=== PATIENT | female | born 1955 | race African-American/Black ===

== ENCOUNTER 2017-04-16 01:42 | Inpatient (IN) ==
[2017-04-16] MEDS ORDERED: NORCO-7.5 PO ONE (03:02)
[2017-04-16] MEDS ORDERED: ZOFRAN ODT PO ONE (03:16)
[2017-04-16 03:24] LABS: MANUAL DIFF NEEDED? NO
[2017-04-16 03:36] LABS: BASO% 0.1 % (0.0-0.8); EOS# 0.06 X1000 (0.0-0.7); EOS% 0.8 % (0.0-10.0); HEMATOCRIT 24.3 % (37.0-47.0); HEMOGLOBIN 7.8 g/dL (12.0-16.0); IMM GRAN# 0.02 X1000 (0.0-0.04); IMM GRAN% 0.3 % (0.0-0.5); LYMPH# 2.26 X1000 (1.2-3.4); LYMPH% 28.9 % (20.5-51.1); MCH 28.3 PG (27-31); MCHC 32.1 g/dL (33-37); MONO# 0.62 X1000 (0.11-0.59); MONO% 7.9 % (1.7-9.3); MPV 9.3 FL (7.4-10.4); PLT 191 X1000 (130-400); RBC 2.76 XMIL (4.2-5.4)
[2017-04-16 03:54] LABS: AGAP 16; ALBUMIN 3.8 g/dL (3.5-5.0); ALKALINE PHOSPHATASE 72 U/L (32-104); BUN 11 mg/dL (8-22); CALCIUM 9.2 mg/dL (8.8-10.2); CHLORIDE 102 mmol/L (98-107); COSMO 278; GOT 10 U/L (10-30); GPT 5 U/L (10-36); POTASSIUM 3.4 mmol/L (3.5-5.1); SODIUM 139 mmol/L (136-145); TCO2 20 mmol/L (25-35); TOTAL PROTEIN 7.3 g/dL (6.3-8.3)
--- NOTE | 2017-04-16 06:00 | Diag Imaging Result Doc PS360 ---
EXAM: CHEST-PORTABLE HISTORY: comparison TECHNIQUE: AP COMPARISON: 08/23/2016 FINDINGS: The lungs are well expanded. The heart is not enlarged. The vessels are not distended. There are small scattered granuloma. No pneumonia. No pleural effusions identified. Apparent mild pleural thickening laterally mid right lung. IMPRESSION: Development of a small area of pleural thickening in the right lung, otherwise stable exam. Electronically signed by Stan Tristan 04/16/2017 5:58 AM
--- NOTE | 2017-04-16 06:57 | Diag Imaging Result Doc PS360 ---
EXAM: ANGIOGRAM/PULMONARY ARTERIES HISTORY: chest pain TECHNIQUE: COMPARISON: 11/05/2016 FINDINGS: Trace pleural fluid on the left. There is a small right pleural effusion measuring 1.4 cm posteriorly and inferiorly in the midline. No thoracic aortic aneurysm or dissection. Heart is mildly prominent. There is a tiny pericardial effusion. Normal opacification of the pulmonary arteries and their major branches. There are several calcified subcarinal and right hilar lymph nodes and there are scattered calcified granuloma. Small area of pleural thickening laterally in the mid right lung. Basilar atelectasis. No consolidation. IMPRESSION: 1.No pulmonary emboli 2.There is evidence of a prior granulomatous infection, but no acute pneumonia 3.Small effusions 4.Mild cardiomegaly with a tiny area cardial effusion Electronically signed by Stan Tristan 04/16/2017 6:55 AM
[2017-04-16] MEDS ORDERED: NS 1,000 ML IV ONE (08:23)
[2017-04-16] MEDS ORDERED: ZOFRAN IV PRN (11:06)
[2017-04-16] MEDS: TYLENOL PO PRN (13:44)
--- NOTE | 2017-04-16 15:53 | HISTORY AND PHYSICAL ---
CHIEF COMPLAINT: Abdominal pain, nausea, vomiting. HISTORY OF PRESENT ILLNESS: This is a 61-year-old, female with a history of ovarian cancer, advanced, who is status post 6 cycles of chemotherapy and robotic total hysterectomy on 03/06/2017. She presents to the emergency room complaining of nausea and vomiting and diarrhea x3 days. She states that actually she has had nausea, vomiting and felt bad since starting chemotherapy. She denies any black or bloody vomitus, black or bloody stools. She is able to eat solid foods, stating that the nausea and vomiting is intermittent. Food does not aggravate this every time. She was not orthostatic per vital signs in the emergency room. She is found to have a hemoglobin of 7.8, hematocrit 24.3 and a D-dimer of 5.10. CTA pulmonary was negative. She was given gentle IV hydration in the emergency room and she is being admitted for further evaluation and treatment. PAST MEDICAL HISTORY: Advanced cervical cancer, status post chemotherapy and hysterectomy. Asthma, diabetes mellitus, hyperlipidemia, hypertension, hyperthyroid. PAST SURGICAL HISTORY: , then robotic total hysterectomy on 2016. SOCIAL HISTORY: She denies alcohol, tobacco, or illicit drug use. ALLERGIES: Codeine which causes a rash and penicillin which causes a rash. HOME MEDICATIONS: Gabapentin 300 mg at bedtime, methimazole 5 mg p.o. t.i.d., Toprol-XL 100 daily, Prinivil 20 daily, metformin a 1000 b.i.d., enteric-coated aspirin 81 mg daily, ferrous sulfate 1 tab daily. REVIEW OF SYSTEMS: A 14 point review of systems is discussed with patient with pertinent positives stated in HPI. She denied any black or bloody vomitus, black or bloody stools, chest pain, palpitations, dizziness, syncope, shortness of breath, cough, fever, chills, hematuria, dysuria, frequency, urgency. PHYSICAL EXAMINATION: GENERAL: This is a 61-year-old female, who is sitting in the bed, in no distress. VITAL SIGNS: Blood pressure is 156/68 with a heart rate of 64, respirations are 18, temperature is 97.9 degrees oral with room air saturation of 100%. CARDIOVASCULAR: Regular rate and rhythm. S1, S2 appreciated. PULMONARY: Breath sounds are clear with no increased work of breathing noted. GASTROINTESTINAL: Abdomen is soft, nontender, nondistended with bowel sounds in all 4 quadrants. BACK: No CVAT. No spine tenderness. MUSCULOSKELETAL: Good range of motion of joints. NEUROLOGIC: She is alert and oriented x3. Cranial nerves 2-12 grossly intact. DIAGNOSTICS/LABORATORY: WBC is 7.82 with hemoglobin 7.8, hematocrit 24.3, and platelets of 191,000. D-dimer is 5.1, sodium is 139, potassium 3.4, BUN 11, creatinine 0.9. CTA pulmonary reveals low probability for pulmonary embolus. No pneumonia. Small effusions. ASSESSMENT AND PLAN: 1. Nausea and vomiting and diarrhea. The patient states this has been present since chemotherapy. Began quite some time ago. We will give IV hydration. IV antibiotics. Diet as tolerated. 2. Diabetes mellitus. We will do pattern blood glucose with sliding scale insulin and trend labs. 3. Hypertension. We will trend vital signs. We will start her home medications. 4. Cervical cancer. Status post chemotherapy and robotic total hysterectomy in February 2017. I did speak with Mervat Prater the [facility] with Dr. Landers who is her PROGRAMMER OR ANALYST oncologist. She stated that the patient was unable to follow up for her postop appointment. Her last office visit was 02/21/2017, which was her preop appointment. She did state that the patient called in the last 2-3 weeks stating that she was having abdominal pain and was concerned something was wrong, although she has and she was strongly urged to keep her appointments. We will obtain a CT of the abdomen and pelvis with IV and oral contrast. Give IV pain medication. 5. Hyperthyroid. We will check a thyroid stimulating hormones and continue her home medications as ordered. 6. Anemia. This could be secondary to chemotherapy. She also recently had surgery. We will type and screen and give 1 unit of packed cells and trend her hemoglobin and hematocrit. Further treatments pending hospital course. Dictated by MARIA T Shields for Mark Knapp MD cc: MARIA T Shields MD pt examined, agree with above , will follow [facility]
--- NOTE | 2017-04-16 17:05 | Diag Imaging Result Doc PS360 ---
EXAM: ABDOMEN/PELVIS W/CONTRAST HISTORY: cervical cancer, abd pain, nausea, vomiting TECHNIQUE: Dose reduction protocol COMPARISON: 11/05/2016 FINDINGS: There is a small right-sided pleural effusion measuring 1.7 cm posteriorly and inferiorly in the midline with trace left pleural fluid. There are scattered calcified granuloma in the lung bases. Mild fatty infiltration of the liver. The gallbladder is mildly contracted. Normal spleen, pancreas, and adrenal glands. Normal enhancement of the kidneys. A 5.9 cm cyst arises in the lower pole of the right kidney. No hydronephrosis. Normal aorta. No bowel obstruction. Normal appendix. No abscess. The urinary bladder is only mildly distended. The uterus is been removed. No pelvic mass. Tiny fat filled left inguinal hernia. Tiny fat filled umbilical hernia. IMPRESSION: 1.Development of a small right pleural effusion 2.Mild fatty infiltration of the liver 3.Right renal cyst 4.Hysterectomy 5.Tiny umbilical hernia and tiny left inguinal hernia 6.There is a 14 mm left iliac lymph node which has increased in size since the prior exam when it measured 9 mm. Electronically signed by Stan Tristan 04/16/2017 5:03 PM
[2017-04-16] MEDS: MORPHINE IV PRN ×2 (17:14→21:07)
[2017-04-16] MEDS: TAPAZOLE PO SCH (17:15)
[2017-04-16] MEDS: NS 1,000 ML IV SCH ×3 (17:20→21:09)
[2017-04-16] MEDS: HUMALOG DOSE (PARKWAY) SUBQ SCH ×2 (17:52→21:08)
--- NOTE | 2017-04-16 18:46 | Diag Imaging Result Doc PS360 ---
EXAM: SHOULDER-RIGHT HISTORY: shoulder pain TECHNIQUE: Three views COMPARISON: None. FINDINGS: No fracture. No dislocation. No separation at the acromioclavicular joint. IMPRESSION: Negative exam. Electronically signed by Stan Tristan 04/16/2017 6:44 PM
[2017-04-16] MEDS: PHENERGAN IV PRN (21:07)
[2017-04-16] MEDS: SODIUM CHLORIDE 0.9% INJ PRN (21:08)
[2017-04-16] MEDS: NEURONTIN PO SCH (21:08)
[2017-04-17] MEDS: MORPHINE IV PRN ×3 (01:22→21:20)
[2017-04-17] MEDS: SODIUM CHLORIDE 0.9% INJ PRN (01:23)
[2017-04-17] MEDS: TYLENOL PO PRN ×2 (01:23→08:45)
[2017-04-17] MEDS: PHENERGAN IV PRN ×2 (01:23→21:21)
[2017-04-17] MEDS: NS 1,000 ML IV SCH ×3 (03:01→16:22)
[2017-04-17] MEDS: HUMALOG DOSE (PARKWAY) SUBQ SCH ×4 (06:28→21:16)
[2017-04-17 06:59] LABS: HEMATOCRIT 31.2 % (37.0-47.0); HEMOGLOBIN 10.1 g/dL (12.0-16.0); MCH 28.5 PG (27-31); MCHC 32.4 g/dL (33-37); MCV 87.9 FL (81-99); RBC 3.55 XMIL (4.2-5.4)
[2017-04-17 07:23] LABS: CALCIUM 8.8 mg/dL (8.8-10.2); POTASSIUM 3.9 mmol/L (3.5-5.1)
[2017-04-17] MEDS: FERROUS SULFATE PO SCH (08:41)
[2017-04-17] MEDS: TAPAZOLE PO SCH ×3 (08:41→17:10)
[2017-04-17] MEDS: TOPROL XL PO SCH (08:42)
[2017-04-17] MEDS: ASPIRIN EC PO SCH (08:42)
[2017-04-17] MEDS ORDERED: MAGNESIUM SULFATE 4 GM/S.W.I. 4 GM/100 ML IVPB IV ONE (15:49)
--- NOTE | 2017-04-17 16:16 | PROGRESS NOTE ---
DATE: 04/17/2017 SUBJECTIVE: Patient states that she may feel a little bit better maybe 10-15% better. She states she is freezing. She has had chills and she feels bad all over. OBJECTIVE: Vital Signs: Blood pressure is 135/73 with a heart rate of 115, respirations are 19, temperature is 99.9 degrees oral with oxygen saturations of 92-98% on room air. Cardiovascular: Regular rate and rhythm. S1 and S2 appreciated. Pulmonary: Breath sounds are clear with no increased work of breathing noted. Gastrointestinal: Abdomen is soft, nontender, nondistended with bowel sounds in all 4 quadrants. Extremities: No clubbing, cyanosis, or edema. Calves are nontender. Pulses are palpable x4. LABS: WBC is 13.5 with hemoglobin 10.1, hematocrit 31.2 and platelets of 196, 000. Sodium is 138, potassium 3.9, BUN is 8, creatinine 1.1 with a glucose of ranging 112 to 180s. Her magnesium is 1.4. PROBLEM LIST: 1. Nausea, vomiting and diarrhea. 2. Diabetes mellitus. 3. Hypertension. 4. Leukocytosis. 5. Fever. 6. Hyperthyroid. 7. Anemia. We will continue with her current regimen. We will go ahead and get urine cultures, blood cultures and cover antibiotics. We will continue with IV hydration. Continue trending her vital signs. Dictated by MARIA T Shields for Mark Knapp MD cc: MARIA T Shields MD pt examined, agree with above [facility] MTDD
[2017-04-17] MEDS: ROCEPHIN 1 GM/NS 1 GM/50 ML IVPB IV SCH (16:17)
[2017-04-17] MEDS ORDERED: LACTULOSE PO ONE (18:29)
[2017-04-17 19:27] LABS: URINE CULTURE PL NEEDED? NO; URINE SOURCE CLEAN CATCH
[2017-04-17 19:28] LABS: BILIRUBIN URINE NEGATIVE (NEGATIVE); CLARITY CLEAR (CLEAR); COLOR YELLOW; NITRITE URINE NEGATIVE (NEGATIVE); PH URINE 6.5; PROTEIN URINE NEGATIVE (NEGATIVE); SP GRAVITY URINE 1.005; URINE EPITHELIAL CELLS <10 /HPF (<10); URINE WBC <10 /HPF (<10); UROBILINOGEN URINE NORMAL
[2017-04-17 19:29] LABS: LEUKOCYTES URINE TRACE (NEGATIVE)
[2017-04-17] MEDS: NEURONTIN PO SCH (21:16)
[2017-04-17] MEDS: MIRALAX PO SCH (21:16)
[2017-04-18] MEDS: MORPHINE IV PRN ×2 (05:32→20:32)
[2017-04-18] MEDS: NS 1,000 ML IV SCH ×2 (05:32→13:10)
[2017-04-18] MEDS: HUMALOG DOSE (PARKWAY) SUBQ SCH ×4 (06:31→20:33)
[2017-04-18] MEDS: FERROUS SULFATE PO SCH (09:56)
[2017-04-18] MEDS: TYLENOL PO PRN ×2 (09:56→20:33)
[2017-04-18] MEDS: ASPIRIN EC PO SCH (09:56)
[2017-04-18] MEDS: TOPROL XL PO SCH (09:56)
[2017-04-18] MEDS: MIRALAX PO SCH ×2 (09:56→20:33)
[2017-04-18] MEDS: TAPAZOLE PO SCH ×3 (09:57→16:41)
--- NOTE | 2017-04-18 10:04 | Diag Imaging Result Doc PS360 ---
EXAM: CHEST-2 VIEWS INDICATION: fever, leukocytosis TECHNIQUE: 2 views COMPARISON: 04/16/2017 FINDINGS: Inspiration is slightly suboptimal. The small focus of pleural thickening at the periphery of the right lung seen on the previous study appears more prominent. This may be due to positioning. There now appears to be a small amount of fissural fluid on the right with adjacent mild atelectasis at the right mid and lower lung zone. Opacity at the medial right lung base has increased, likely due to vascular crowding. Developing infiltrate is not excluded, however. The left lung is grossly clear. Cardiac silhouette is unremarkable. IMPRESSION: 1.Focal pleural thickening on the right appears slightly more prominent, probably due to positioning. 2.Small amount of fissural fluid on the right with adjacent atelectasis. 3.Increased opacity at the medial right lung base suggesting atelectasis or perhaps mild infiltrate. Electronically signed by Gil Preciado 04/18/2017 10:01 AM
--- NOTE | 2017-04-18 11:34 | PROGRESS NOTE ---
DATE: 04/18/2017 SUBJECTIVE: The patient states that she is aching all over. She is having chills. She does feel worse today than yesterday. OBJECTIVE: Vital Signs: Blood pressure is 150/79, with a heart rate of 100, respirations are 18, temperature is 101.3 degrees oral, with room air saturations of 97-99%. Cardiovascular: Regular rate and rhythm. S1 and S2 are appreciated. Pulmonary: Breath sounds are clear with no increased work of breathing noted. Gastrointestinal: Abdomen is soft, nontender, nondistended with bowel sounds in all 4 quadrants. Extremities: No clubbing, cyanosis, or edema. Calves are nontender. Pulses are palpable x4. Neurologic: She is alert and oriented x3. Cranial nerves 2- 12 grossly intact. Labs: Blood sugars ranging 170s to 210. Chest x-ray revealed focal pleural thickening on the right is more prominent, probably due to positioning. She has a small amount of fissure fluid on the right with atelectasis, increased opacity in the medial right lung, suggesting atelectasis or infiltrate. ASSESSMENT AND PLAN: 1. Nausea, vomiting, and diarrhea. This is resolved. 2. Right middle lobe atelectasis versus pneumonia. Blood cultures x2 are pending. We will continue her Rocephin. We will add incentive spirometer as well as Acapella. Encourage patient to get out of bed with meals at least 3 times a day. 3. Diabetes mellitus. We will continue to monitor blood sugars and continue with her current medical regimen. 4. Leukocytosis. We will continue to trend labs. 5. Fever. Continue with her current treatment. 6. Hyperthyroid. We will continue with her Tapazole. 7. Anemia. We will trend her labs. Dictated by MARIA T Shields for Mark Knapp MD cc: MARIA T Shields MD pt examined, agree with above [facility]OT MTDD
[2017-04-18 11:37] LABS: MANUAL DIFF NEEDED? NO
[2017-04-18 11:53] LABS: BASO% 0.1 % (0.0-0.8); EOS# 0.05 X1000 (0.0-0.7); EOS% 0.4 % (0.0-10.0); HEMATOCRIT 28.6 % (37.0-47.0); HEMOGLOBIN 9.4 g/dL (12.0-16.0); IMM GRAN# 0.03 X1000 (0.0-0.04); IMM GRAN% 0.2 % (0.0-0.5); LYMPH# 2.03 X1000 (1.2-3.4); LYMPH% 16.3 % (20.5-51.1); MCH 28.7 PG (27-31); MCHC 32.9 g/dL (33-37); MCV 87.2 FL (81-99); MONO# 0.87 X1000 (0.11-0.59); MPV 8.7 FL (7.4-10.4); PLT 165 X1000 (130-400); RBC 3.28 XMIL (4.2-5.4)
[2017-04-18] MEDS: ZITHROMAX 500 MG/NS 500 MG/250 ML IVPB IV SCH (12:32)
[2017-04-18] MEDS: XOPENEX NEB INH SCH ×2 (15:17→22:32)
[2017-04-18] MEDS: ROCEPHIN 1 GM/NS 1 GM/50 ML IVPB IV SCH (16:41)
[2017-04-18] MEDS: NEURONTIN PO SCH (20:33)
[2017-04-19] MEDS: PHENERGAN IV PRN (01:19)
[2017-04-19] MEDS: MORPHINE IV PRN ×4 (01:19→20:24)
[2017-04-19 06:13] LABS: MANUAL DIFF NEEDED? NO
[2017-04-19 06:24] LABS: BASO% 0.1 % (0.0-0.8); EOS# 0.11 X1000 (0.0-0.7); EOS% 1.1 % (0.0-10.0); HEMOGLOBIN 8.7 g/dL (12.0-16.0); IMM GRAN# 0.01 X1000 (0.0-0.04); IMM GRAN% 0.1 % (0.0-0.5); LYMPH# 2.04 X1000 (1.2-3.4); LYMPH% 20.1 % (20.5-51.1); MCH 28.4 PG (27-31); MCHC 32.2 g/dL (33-37); MCV 88.2 FL (81-99); MONO% 7.9 % (1.7-9.3); MPV 9.5 FL (7.4-10.4); NEUT% 70.7 % (42.2-75.2); PLT 151 X1000 (130-400); RBC 3.06 XMIL (4.2-5.4)
[2017-04-19] MEDS: HUMALOG DOSE (PARKWAY) SUBQ SCH ×4 (06:35→21:04)
[2017-04-19 06:37] LABS: AGAP 12; BUN 7 mg/dL (8-22); CALCIUM 8.1 mg/dL (8.8-10.2); CHLORIDE 106 mmol/L (98-107); COSMO 278; POTASSIUM 3.8 mmol/L (3.5-5.1); SODIUM 139 mmol/L (136-145); TCO2 21 mmol/L (25-35)
[2017-04-19] MEDS: XOPENEX NEB INH SCH ×3 (07:49→22:40)
[2017-04-19] MEDS: TOPROL XL PO SCH (09:58)
[2017-04-19] MEDS: TAPAZOLE PO SCH ×3 (09:59→17:40)
[2017-04-19] MEDS: FERROUS SULFATE PO SCH (09:59)
[2017-04-19] MEDS: MIRALAX PO SCH ×2 (09:59→20:24)
[2017-04-19] MEDS: ASPIRIN EC PO SCH (09:59)
[2017-04-19] MEDS ORDERED: ROBITUSSIN-DM PO PRN (10:10)
--- NOTE | 2017-04-19 10:25 | PROGRESS NOTE ---
DATE: 04/19/2017 SUBJECTIVE: The patient has developed a cough. Otherwise, she states that she has just generalized body aches. Otherwise, she has no significant complaints. OBJECTIVE: Vital Signs: Blood pressure is 165/75, heart rate of 88, respirations are 18, temperature is 98.4 degrees with oxygen saturations of 96% to 100% on 2 liters nasal cannula. Cardiovascular: Regular rate and rhythm. S1 and S2 appreciated. Pulmonary: Breath sounds, she has some rhonchi that do clear to cough with no increased work of breathing noted. Gastrointestinal: The abdomen is soft, nontender, nondistended with bowel sounds in all 4 quadrants. Extremities: No clubbing, cyanosis, or edema. Calves are nontender. Pulses are palpable x4. LABORATORY DATA: WBC is 10.1 with hemoglobin of 8.7, hematocrit 27, and platelets of 151,000. Sodium is 139, potassium 3.8, BUN 7, creatinine 0.9 with a glucose of 142. ASSESSMENT: 1. Nausea and vomiting and diarrhea, which are resolved. 2. Right middle lobe atelectasis versus pneumonia. Blood cultures reveal no growth after 48 hours. 3. Diabetes mellitus. 4. Leukocytosis, resolved. 5. Fever. 6. Hyperthyroid. 7. Anemia. PLAN: We will continue with her current regimen. We will add something for her cough. Dictated by MARIA T Shields for Mark Knapp MD cc: MARIA T Shields MD pt examined, agree with above AP[facility]OT MTDD
[2017-04-19] MEDS: NS 1,000 ML IV SCH (10:53)
[2017-04-19] MEDS: TESSALON PO SCH ×2 (10:54→17:39)
[2017-04-19] MEDS: ZITHROMAX 500 MG/NS 500 MG/250 ML IVPB IV SCH (11:18)
[2017-04-19] MEDS: ROCEPHIN 1 GM/NS 1 GM/50 ML IVPB IV SCH (15:54)
[2017-04-19] MEDS: TYLENOL PO PRN (17:40)
[2017-04-19] MEDS: TUSSIONEX LIQUID PO SCH (20:24)
[2017-04-19] MEDS: NEURONTIN PO SCH (20:24)
[2017-04-20] MEDS: TESSALON PO SCH ×3 (02:14→17:25)
[2017-04-20 05:34] LABS: MANUAL DIFF NEEDED? NO
[2017-04-20 05:57] LABS: BASO% 0.2 % (0.0-0.8); EOS# 0.11 X1000 (0.0-0.7); EOS% 1.3 % (0.0-10.0); HEMATOCRIT 26.9 % (37.0-47.0); HEMOGLOBIN 8.6 g/dL (12.0-16.0); IMM GRAN# 0.02 X1000 (0.0-0.04); IMM GRAN% 0.2 % (0.0-0.5); LYMPH# 2.03 X1000 (1.2-3.4); LYMPH% 23.4 % (20.5-51.1); MCH 28.2 PG (27-31); MCV 88.2 FL (81-99); MONO# 0.65 X1000 (0.11-0.59); MONO% 7.5 % (1.7-9.3); MPV 8.9 FL (7.4-10.4); NEUT% 67.4 % (42.2-75.2); PLT 156 X1000 (130-400); RBC 3.05 XMIL (4.2-5.4)
[2017-04-20 06:16] LABS: AGAP 11; BUN 6 mg/dL (8-22); CALCIUM 8.4 mg/dL (8.8-10.2); CHLORIDE 105 mmol/L (98-107); COSMO 276; POTASSIUM 3.6 mmol/L (3.5-5.1); SODIUM 139 mmol/L (136-145); TCO2 23 mmol/L (25-35)
[2017-04-20] MEDS: HUMALOG DOSE (PARKWAY) SUBQ SCH ×4 (06:37→21:46)
[2017-04-20] MEDS: XOPENEX NEB INH SCH ×4 (07:16→21:58)
[2017-04-20] MEDS: ASPIRIN EC PO SCH (09:18)
[2017-04-20] MEDS: TOPROL XL PO SCH (09:18)
[2017-04-20] MEDS: FERROUS SULFATE PO SCH (09:18)
[2017-04-20] MEDS: TAPAZOLE PO SCH ×3 (09:18→16:40)
[2017-04-20] MEDS: TUSSIONEX LIQUID PO SCH ×2 (09:19→21:46)
[2017-04-20] MEDS: MIRALAX PO SCH ×2 (09:19→21:46)
--- NOTE | 2017-04-20 11:08 | PROGRESS NOTE ---
DATE: 04/20/2017 SUBJECTIVE: The patient complains of a cough. Otherwise she states that she is feeling some better. She denied chest pain, PND, orthopnea, shortness of breath, nausea, vomiting, diarrhea or constipation. OBJECTIVE: Vital Signs: Blood pressure is 157/90 with a heart rate of 94, respirations are 18, temperature is 98.1 degrees with oxygen saturation of 97% on room air. Cardiovascular: Regular rate and rhythm. S1, S2 appreciated. Pulmonary: She does have some crackles in the bases with no increased work of breathing noted. Gastrointestinal: Abdomen is soft, nontender, nondistended with bowel sounds in all 4 quadrants. Extremities: No clubbing, cyanosis, or edema. Calves nontender. Pulses are palpable x4. LABORATORY DATA: WBC is 8.6, with a hemoglobin of 8.6 and a hematocrit 26.9, platelets are 156. Sodium is 139, potassium 3.6, BUN 6, creatinine 0.9, with a glucose of 114. Microbiology: Blood cultures and urine cultures revealed no growth. ASSESSMENT: 1. Nausea and vomiting diarrhea. Resolved. 2. Right middle lobe atelectasis versus pneumonia. We will continue with her current regimen. We will add another cough syrup. Continue with pulmonary toilet. 3. Diabetes mellitus. We will continue with her current regimen. Blood sugars are staying in the 114-200 range. 4. Fever resolved. 5. Leukocytosis resolved. 6. Hyperthyroid. We will continue with her home medications. 7. Anemia. Her hemoglobin and hematocrit are staying stable at 8 and 27. Dictated by MARIA T Shields for Mark Knapp MD cc: MARIA T Shields MD pt examined, agree with above AP[facility]OT MTDD
[2017-04-20] MEDS: ZITHROMAX 500 MG/NS 500 MG/250 ML IVPB IV SCH (11:43)
[2017-04-20] MEDS: ROCEPHIN 1 GM/NS 1 GM/50 ML IVPB IV SCH (16:41)
[2017-04-20] MEDS: MORPHINE IV PRN (21:15)
[2017-04-20] MEDS: NEURONTIN PO SCH (21:46)
[2017-04-21] MEDS: TESSALON PO SCH ×4 (01:10→19:04)
[2017-04-21] MEDS: MORPHINE IV PRN ×4 (01:10→20:32)
[2017-04-21] MEDS: XOPENEX NEB INH SCH ×4 (04:10→21:24)
[2017-04-21 05:45] LABS: MANUAL DIFF NEEDED? NO
[2017-04-21 05:51] LABS: BASO% 0.1 % (0.0-0.8); EOS# 0.11 X1000 (0.0-0.7); EOS% 1.2 % (0.0-10.0); HEMATOCRIT 26.8 % (37.0-47.0); HEMOGLOBIN 8.5 g/dL (12.0-16.0); IMM GRAN# 0.01 X1000 (0.0-0.04); IMM GRAN% 0.1 % (0.0-0.5); LYMPH# 1.94 X1000 (1.2-3.4); LYMPH% 21.9 % (20.5-51.1); MCH 28.1 PG (27-31); MCHC 31.7 g/dL (33-37); MCV 88.4 FL (81-99); MONO# 0.73 X1000 (0.11-0.59); MONO% 8.2 % (1.7-9.3); MPV 9.2 FL (7.4-10.4); NEUT% 68.5 % (42.2-75.2); PLT 161 X1000 (130-400); RBC 3.03 XMIL (4.2-5.4)
[2017-04-21] MEDS: HUMALOG DOSE (PARKWAY) SUBQ SCH ×4 (06:47→20:31)
[2017-04-21] MEDS: MIRALAX PO SCH ×2 (08:18→20:23)
[2017-04-21] MEDS: TAPAZOLE PO SCH ×3 (08:18→17:35)
[2017-04-21] MEDS: FERROUS SULFATE PO SCH (08:18)
[2017-04-21] MEDS: ASPIRIN EC PO SCH (08:19)
[2017-04-21] MEDS: TOPROL XL PO SCH (08:19)
[2017-04-21] MEDS: TUSSIONEX LIQUID PO SCH (08:20)
[2017-04-21] MEDS: PHENERGAN IV PRN ×2 (09:16→20:32)
[2017-04-21] MEDS: DOXYCYCLINE 100 MG in NS 250 ML IV SCH ×2 (11:48→23:29)
--- NOTE | 2017-04-21 11:48 | PROGRESS NOTE ---
DATE: 04/21/2017 SUBJECTIVE: Today, Ms. Bills refers to be doing a lot better but still continues to have residual cough and right-sided chest discomfort. OBJECTIVE: Vital Signs: Blood pressure is 159/70, pulse of 98, respirations are 18, temperature 98.4 degrees. General Examination: Ms. Bills is a 61-year-old, female. She is in bed, in mild painful distress. HEENT: Mucosa is pink and moist. Anicteric and acyanotic. Neck: Supple. Chest: Good air entry bilaterally. Some wheezing on the right posterior lung field. Cardiovascular: Regular rate and rhythm. Abdomen: Soft. Extremities : No pedal edema. LEAD RECOVERER: Patient is alert and oriented x4. Laboratory Data: WBCs 8.86, hemoglobin is 8.5, platelet count of 161,000. Chemistry is reviewed. Glucose is 104. An x-ray done on the 1st shows focal pleural thickening on the right appears slightly more prominent probably due to positioning, small amount of effusion in the right with adjacent atelectasis, increased opacity at the medial right lung base suggesting atelectasis and/or perhaps pneumonia. CURRENT MEDICATIONS: Include: 1. Ceftriaxone. 2. Iron. 3. Guaifenesin. 4. Xopenex. 5. Metoprolol. 6. Phenergan. ASSESSMENT: 1. Persistent cough secondary to right medial lobe pneumonia. The patient has been on ceftriaxone and azithromycin. The patient continues to be very symptomatic. We will discontinue the azithromycin and put her on doxycycline to cover for possible methicillin- resistant Staphylococcus aureus and other hospital-associated bacteria since patient has been in and out of the healthcare system. We will also repeat chest imaging to follow up and make sure there is nothing else that we are missing. 2. Nausea and vomiting, which was the main reason of coming in, is improved. 3. Diabetes mellitus, stable. 4. Hyperthyroidism, improved. Stable on methimazole. 5. Normocytic anemia of chronic disease. Patient is status post 1 unit of packed RBC transfusion, stable. 6. History of uterine cancer, status post hysterectomy. Status post rounds of chemotherapy and subsequently a recent hysterectomy. PLAN: Today, we are going to add doxycycline to the patient's medication. I will give her 2 days of acetylcysteine inhalation to help with this cough. We will do a chest CT scan to follow up and make sure there is nothing that we are missing. cc: Etienne Paul MD MTDD
--- NOTE | 2017-04-21 16:11 | Diag Imaging Result Doc PS360 ---
EXAM: CT THORAX W/CONTRAST INDICATION: pneumonia COMPARISON: 04/16/2017 FINDINGS: There has been interval significant increase in size of the right pleural effusion. It is now moderate to large in size. The nodular pleural thickening at the periphery of the right lung overlying the right upper lobe is approximately stable. Pleural metastatic disease cannot be excluded given that there is a history of carcinoma. There is there is nodularity along the fissures of the right lung, which also supports possible pleural metastatic disease. For reference, one small nodule along the minor fissure on image 79 of series 3 measures up to 4.9 mm in greatest dimension. Similarly, there is also nodularity along the pleural surface and fissures on the left. However, it is milder on the left. There are also a few calcified granulomata on the bilaterally. There has been development of a trace effusion at the left lung base as well. There is significant atelectasis at the right lung base and minimal atelectasis at the left lung base. Superimposed pneumonia on the right is possible. There is stable cardiomegaly. There are calcified mediastinal and hilar lymph nodes indicating prior granulomatous disease. IMPRESSION: 1.Increasing right pleural effusion and development of a small left effusion during the short interval. 2.Atelectasis bilaterally, much more significant on the right. I suppose superimposed pneumonia is possible as well. 3.Very nodular pleural thickening at the periphery of the right lung as well as nodularity along the pleural fissures bilaterally. Neoplasm, specifically pleural metastatic disease cannot be excluded given that there is a history of cancer. 4.Other incidental/nonacute findings detailed above. Electronically signed by Gil Preciado 04/21/2017 4:08 PM
[2017-04-21] MEDS: TYLENOL PO PRN (16:48)
[2017-04-21] MEDS: ROCEPHIN 1 GM/NS 1 GM/50 ML IVPB IV SCH (16:48)
[2017-04-21] MEDS ORDERED: NS 100 ML ONE (16:53)
[2017-04-21] MEDS: NEURONTIN PO SCH (20:23)
[2017-04-21] MEDS: MILK OF MAGNESIA PO SCH (20:23)
[2017-04-21] MEDS: MUCOMYST 20% INH SCH (21:24)
[2017-04-22] MEDS: TESSALON PO SCH (02:11)
[2017-04-22] MEDS: XOPENEX NEB INH SCH ×4 (03:02→22:07)
[2017-04-22] MEDS: TYLENOL PO PRN ×2 (03:08→17:00)
[2017-04-22] MEDS: FERROUS SULFATE PO SCH (09:34)
[2017-04-22] MEDS: TOPROL XL PO SCH (09:34)
[2017-04-22] MEDS: MILK OF MAGNESIA PO SCH ×2 (09:34→22:00)
[2017-04-22] MEDS: TAPAZOLE PO SCH ×3 (09:35→17:49)
[2017-04-22] MEDS: MIRALAX PO SCH ×2 (09:35→22:00)
[2017-04-22] MEDS: ASPIRIN EC PO SCH (09:40)
[2017-04-22] MEDS: HUMALOG DOSE (PARKWAY) SUBQ SCH ×3 (09:41→16:36)
[2017-04-22 09:58] LABS: INR 1.06 (0.86-1.15); PROTIME 14.1 Seconds (12.1-15.5)
[2017-04-22 09:59] LABS: PTT PL 34.3 Seconds (22.6-43.9)
[2017-04-22] MEDS: MUCOMYST 20% INH SCH ×2 (10:33→22:07)
[2017-04-22] MEDS: DOXYCYCLINE 100 MG in NS 250 ML IV SCH ×2 (12:56→16:35)
--- NOTE | 2017-04-22 14:19 | Diag Imaging Result Doc PS360 ---
EXAM: CHEST-2 VIEWS HISTORY: INSPIRATION EXP. AFTER THORACENTESIS TECHNIQUE: Inspiratory expiratory PA upright COMMENT: compared to the previous study of 04/18/2017 the right lung is better expanded. There is less fluid status post thoracentesis. There is no evidence of pneumothorax. There may be a small effusion on the left side at this time which was not present previously. IMPRESSION: No evidence of pneumothorax on the right. Electronically signed by Omer Barros 04/22/2017 2:17 PM
--- NOTE | 2017-04-22 14:27 | Diag Imaging Result Doc PS360 ---
EXAM: THORACENTESIS W/IMAGE GUIDANCE HISTORY: right pleural effusion TECHNIQUE: Ultrasound-guided right posterior thoracentesis COMMENT: The risks and benefits the procedure including the possibility of bleeding infection pneumothorax or reaction to lidocaine were discussed with patient and she agreed. Following sterile preparation the skin posteriorly over the fluid pocket in the pleural space and administration 1% lidocaine to the skin and deeper soft tissues, the thoracentesis catheter was placed and subsequently over 400 mL of slightly turbid yellowish a fluid was aspirated. Patient tolerated the procedure well and there are no immediate complications. IMPRESSION: Successful right thoracentesis. Electronically signed by Omer Barros 04/22/2017 2:24 PM
[2017-04-22] MEDS: MORPHINE IV PRN ×2 (16:32→21:23)
[2017-04-22] MEDS ORDERED: VANCOMYCIN IV PER PHARMACY MISC SCH (17:15)
[2017-04-22] MEDS: MAXIPIME 2 GM/NS 2 GM/100 ML IVPB IV SCH (17:49)
[2017-04-22] MEDS ORDERED: VANCOMYCIN 2,000 MG in NS 500 ML IV SCH (18:30)
--- NOTE | 2017-04-22 20:02 | CONSULTATION ---
DATE OF CONSULTATION: 04/22/2017 CONCLUSION: Patient has bibasilar pneumonia. RECOMMENDATIONS: I have discontinued Rocephin and doxycycline, and I put the patient on vancomycin and cefepime. Also, a thoracentesis was performed today and I have ordered the following tests on the pleural fluid: Cell count, cytology, Gram stain, [employer]OR HOME HEALTH, AFB smear and culture, and fungal stain and culture. DISCUSSION: The patient initially was admitted to the hospital with abdominal pain, nausea and vomiting. Now she tells me that she is having bibasilar pleuritic chest pain more prominent on the right side than the left. She has also had fever. She is coughing but she is not bringing up any sputum. The patient had a thoracentesis performed on the right side today. Over 400 mL of a turbid yellow fluid was obtained. CT scan of the chest shows right greater than left pleural effusion and bibasilar infiltrates/atelectasis. Also right lung nodules compatible with metastatic cancer were seen too. The abdomen and pelvic CT showed increase in the lymph node size and also fatty liver. The patient's CBC shows a white count of 8,860, hemoglobin 8.5, and platelet count 161,000. Creatinine is 0.9. GFR is greater than 60. PAST MEDICAL HISTORY: Patient's past medical history is positive for advanced cervical cancer status post chemotherapy and hysterectomy. She also has asthma, diabetes mellitus, hyperlipidemia, hypertension and hyperthyroidism. PAST SURGICAL HISTORY: Positive for and total hysterectomy. SOCIAL HISTORY: The patient [place] . [place] She denies drinking alcohol, smoking cigarettes or abusing drugs. ALLERGIES: The patient is allergic to codeine manifested by rash and also to penicillin which also causes a rash. She has received in the hospital Rocephin already and has tolerated it well. HOME MEDICATIONS: Gabapentin, methimazole, Toprol, Prinivil, metformin, aspirin and ferrous sulfate. REVIEW OF SYSTEMS: Eyes and ears: She denies difficulty hearing or seeing. Neck: No stiffness. Respiratory: She is having bibasilar pain which is pleuritic in nature. She is coughing but does not bring up any sputum. Cardiac: She is not having any anterior left-sided chest pain and she is not having any palpitations. Gastrointestinal: On admission she was complaining of abdominal pain, nausea and vomiting but this has all cleared. She has not noticed any blood in her stool. Genitourinary: No dysuria. The patient is having flank pain but it is mainly pleuritic in nature. Neurologic: The patient is awake. She has not had any seizures. She does not have any unilateral loss of motor or sensory function. PHYSICAL EXAMINATION: Vital Signs: Temperature is 101.7 degrees, pulse 91, respirations 20, blood pressure 159/59. Patient's weight is listed as 155 pounds. She is 5 feet 4 inches tall. General: The patient is an ill-appearing, middle-aged female who has been having pleuritic chest pain as mentioned above. HEENT: She can hear my spoken words. She can see near objects. There were no white patches in her mouth. Neck: No meningismus. Thorax: No increased AP diameter of the chest. A pacemaker is present on the left side. Lungs: There were bibasilar rales. Cardiovascular: Heart rate is regular. Extremities: The patient has leg edema. Peripheral pulses are palpable. Abdomen: Soft and nontender. Neurologic: Patient is slightly lethargic. She is complaining of chest pain. She did move her extremities to request. Her memory as regarding her medical history was reduced. Integument: No rash noted. Thank you for the consultation. cc: Villa Jaimes MD MTDD
[2017-04-22] MEDS: PHENERGAN IV PRN (21:23)
[2017-04-22] MEDS: NEURONTIN PO SCH (21:59)
[2017-04-22 22:36] LABS: SPECIMEN PLEURAL FLUID
[2017-04-22 22:53] LABS: DIFF NEEDED? YES; WBC BF 2611 /cumm
[2017-04-22 23:13] LABS: MONOS 68 %; POLYS 32 %
[2017-04-22 23:52] LABS: TOTAL PROT BODY FLUID 4.9 g/dL
[2017-04-23] MEDS: XOPENEX NEB INH SCH ×4 (03:21→22:22)
[2017-04-23] MEDS: HUMALOG DOSE (PARKWAY) SUBQ SCH ×5 (03:36→20:40)
[2017-04-23] MEDS: PHENERGAN IV PRN ×2 (06:18→20:40)
[2017-04-23] MEDS: MAXIPIME 2 GM/NS 2 GM/100 ML IVPB IV SCH ×2 (06:18→17:47)
[2017-04-23] MEDS: MORPHINE IV PRN ×4 (06:19→20:39)
[2017-04-23 06:25] LABS: DIFF NEEDED? YES; WBC BF 202 /cumm
[2017-04-23 06:29] LABS: MONOS 0 %; POLYS 11 %
[2017-04-23 07:28] LABS: HEMATOCRIT 25.6 % (37.0-47.0); HEMOGLOBIN 8.4 g/dL (12.0-16.0); MCH 28.7 PG (27-31); MCHC 32.8 g/dL (33-37); MCV 87.4 FL (81-99); MPV 8.8 FL (7.4-10.4); RBC 2.93 XMIL (4.2-5.4)
[2017-04-23 07:49] LABS: AGAP 10; ALKALINE PHOSPHATASE 99 U/L (32-104); BUN 8 mg/dL (8-22); CALCIUM 8.5 mg/dL (8.8-10.2); CHLORIDE 100 mmol/L (98-107); COSMO 272; GOT 13 U/L (10-30); GPT 12 U/L (10-36); POTASSIUM 4.2 mmol/L (3.5-5.1); SODIUM 136 mmol/L (136-145); TCO2 26 mmol/L (25-35); TOTAL PROTEIN 6.8 g/dL (6.3-8.3)
[2017-04-23 08:01] LABS: FREE T4 0.87 ng/dL (0.93-1.70)
--- NOTE | 2017-04-23 08:42 | PROGRESS NOTE ---
DATE: 04/23/2017 SUBJECTIVE: Patient is still having increased work of breathing, increased shortness of breath, dyspnea on exertion. She states that she is hurting too bad in her right shoulder to be able to get out of bed. PHYSICAL: Vital Signs: Temperature 98, pulse 93, respiratory rate 18, BP 161/79, saturation 97% on 2 L. General: Patient is awake, alert. She is currently in mild respiratory distress. Pleasant to talk with. Speech is regular. Memory is intact. Neck: Supple. She is an ill- appearing female who appears older than her stated age. HEENT: Normocephalic, atraumatic. Neck: Supple. CV: Regular rate. Chest: Decreased breath sounds but equal bilaterally. Abdomen: Soft. Extremities: Moves all extremities. LABS: WBC 11, hemoglobin and hematocrit 8 and 25. CMP essentially normal. Blood glucose 158. ASSESSMENT: 1. Persistent cough with right middle lobe pneumonia. She had a thoracentesis ultrasound-guided yesterday. Results are pending. 2. Persistent fever with a T-max of 101 on 04/22. Dr. Jaimes, Infectious Disease was consulted and changed her antibiotics to vancomycin and cefepime. 3. Persistent nausea and vomiting. 4. Right shoulder pain. 5. Diabetes. 6. Hyperthyroidism, stable on methimazole. 7. Uterine cancer with her most recent chemotherapy 2 months ago. PLAN: We will attempt to contact her oncologist, Dr. Landers in [place] to discuss with him her current care and plan. Will ensure that her pleural fluid was sent to cytology. Will continue sliding scale. Further orders as needed. cc: Ronaldo Walton MD
[2017-04-23] MEDS: FERROUS SULFATE PO SCH (10:04)
[2017-04-23] MEDS: TAPAZOLE PO SCH ×3 (10:04→17:47)
[2017-04-23] MEDS: ASPIRIN EC PO SCH (10:04)
[2017-04-23] MEDS: TOPROL XL PO SCH (10:04)
[2017-04-23] MEDS: MIRALAX PO SCH ×2 (10:04→20:40)
[2017-04-23] MEDS: MILK OF MAGNESIA PO SCH ×2 (10:04→20:39)
[2017-04-23] MEDS: MUCOMYST 20% INH SCH (10:25)
[2017-04-23] MEDS: VANCOMYCIN 1,400 MG in NS 250 ML IV SCH (18:50)
[2017-04-23] MEDS: NEURONTIN PO SCH (20:40)
[2017-04-24] MEDS: MORPHINE IV PRN ×4 (00:29→15:53)
[2017-04-24] MEDS: PHENERGAN IV PRN ×3 (00:29→21:03)
[2017-04-24] MEDS: XOPENEX NEB INH SCH ×4 (03:31→22:15)
[2017-04-24] MEDS: MAXIPIME 2 GM/NS 2 GM/100 ML IVPB IV SCH ×2 (05:46→17:48)
[2017-04-24] MEDS: MILK OF MAGNESIA PO SCH ×2 (11:00→21:04)
[2017-04-24] MEDS: MIRALAX PO SCH ×2 (11:00→21:04)
[2017-04-24] MEDS: HUMALOG DOSE (PARKWAY) SUBQ SCH ×4 (11:00→22:51)
[2017-04-24] MEDS: FERROUS SULFATE PO SCH (11:01)
[2017-04-24] MEDS: TAPAZOLE PO SCH ×3 (11:01→17:48)
[2017-04-24] MEDS: ASPIRIN EC PO SCH (11:01)
[2017-04-24] MEDS: TOPROL XL PO SCH (11:18)
[2017-04-24] MEDS: TYLENOL PO PRN (12:21)
[2017-04-24] MEDS: VANCOMYCIN 1,400 MG in NS 250 ML IV SCH (21:04)
[2017-04-24] MEDS: NEURONTIN PO SCH (21:04)
[2017-04-25] MEDS: XOPENEX NEB INH SCH ×4 (04:13→21:38)
[2017-04-25] MEDS: MAXIPIME 2 GM/NS 2 GM/100 ML IVPB IV SCH ×2 (05:14→17:47)
[2017-04-25] MEDS: HUMALOG DOSE (PARKWAY) SUBQ SCH ×4 (06:31→21:16)
--- NOTE | 2017-04-25 08:51 | PROGRESS NOTE ---
DATE: 04/25/2017 SUBJECTIVE: The patient notes that she is not hurting quite as bad this morning as she was yesterday. She continued to improve a little bit. Denies any chest pains or palpitations. PHYSICAL: Temperature 98, pulse 96, respiratory 18, BP 135/75. Saturation 99% on 2 L. General: Patient is awake, alert. She is sitting in the bed. She is much improved. ASSESSMENT: 1. Persistent right middle lobe pneumonia. She has actually been afebrile since changing her antibiotics to vancomycin and cefepime on 04/22/2017. We will continue these for now. Labs are currently pending. 2. Pleural effusion. Still waiting results of her recent thoracentesis, although certainly expect that her uterine cancer may be problematic causing this. 3. Nausea and vomiting, improved. 4. Diabetes. 5. Hypothyroidism, stable. PLAN: We will continue antibiotics today. Continue to follow. Hopefully, home in the next couple of days. cc: Ronaldo Walton MD
--- NOTE | 2017-04-25 08:53 | PROGRESS NOTE ---
DATE: 04/25/2017 SUBJECTIVE: The patient notes that she is hurting tremendously this morning. She is sitting on the side of the bed. She is crying on exam. She is currently in no respiratory distress but she is panting on exam secondary to the pain. OBJECTIVE: Vital Signs: Reviewed. Temperature 98 degrees, pulse 87, BP 160/60, sat 98% on room air. General: Patient is awake, alert. She is currently in moderate distress due to pain but no respiratory distress. Neck: Supple. CV: Regular rate. Chest: Clear, nonlabored. Abdomen: Soft. Extremities: Moves all extremities. Neurologic: No changes. LABS: Reviewed. ASSESSMENT: 1. Persistent right middle lobe pneumonia. She is currently afebrile for the past 18 hours after changing her antibiotics yesterday to vancomycin and cefepime. 2. Nausea and vomiting, improved. 3. Pain with poor control. We will attempt to increase her medications. 4. Diabetes. 5. Hypothyroidism 6. Uterine cancer. PLAN: We will continue to follow. We will adjust her pain medications. Further orders as needed. cc: Ronaldo Walton MD
[2017-04-25] MEDS: MIRALAX PO SCH ×2 (09:25→21:16)
[2017-04-25] MEDS: FERROUS SULFATE PO SCH (09:25)
[2017-04-25] MEDS: TAPAZOLE PO SCH ×3 (09:25→16:44)
[2017-04-25] MEDS: MORPHINE IV PRN ×4 (09:25→21:46)
[2017-04-25] MEDS: MILK OF MAGNESIA PO SCH ×2 (09:25→21:16)
[2017-04-25] MEDS: TOPROL XL PO SCH (09:25)
[2017-04-25] MEDS: ASPIRIN EC PO SCH (09:25)
[2017-04-25 10:05] LABS: HEMATOCRIT 30.2 % (37.0-47.0); HEMOGLOBIN 9.8 g/dL (12.0-16.0); MCH 28.3 PG (27-31); MCHC 32.5 g/dL (33-37); MCV 87.3 FL (81-99); MPV 9.6 FL (7.4-10.4); RBC 3.46 XMIL (4.2-5.4)
[2017-04-25 10:06] LABS: AGAP 12; ALBUMIN 3.3 g/dL (3.5-5.0); ALKALINE PHOSPHATASE 105 U/L (32-104); BUN 8 mg/dL (8-22); CALCIUM 9.3 mg/dL (8.8-10.2); CHLORIDE 97 mmol/L (98-107); COSMO 274; GOT 17 U/L (10-30); GPT 11 U/L (10-36); MAGNESIUM 2.4 mg/dL (1.5-2.7); POTASSIUM 4.2 mmol/L (3.5-5.1); SODIUM 136 mmol/L (136-145); TCO2 27 mmol/L (25-35); TOTAL PROTEIN 7.9 g/dL (6.3-8.3)
[2017-04-25] MEDS: VANCOMYCIN 1,400 MG in NS 250 ML IV SCH (19:42)
[2017-04-25] MEDS: NEURONTIN PO SCH (21:16)
[2017-04-26] MEDS: XOPENEX NEB INH SCH ×2 (03:59→10:24)
[2017-04-26] MEDS: MORPHINE IV PRN ×3 (04:48→13:26)
[2017-04-26] MEDS: HUMALOG DOSE (PARKWAY) SUBQ SCH ×2 (06:13→11:36)
[2017-04-26] MEDS: MAXIPIME 2 GM/NS 2 GM/100 ML IVPB IV SCH (06:13)
[2017-04-26] MEDS: MILK OF MAGNESIA PO SCH (08:47)
[2017-04-26] MEDS: ASPIRIN EC PO SCH (08:48)
[2017-04-26] MEDS: TAPAZOLE PO SCH ×2 (08:48→13:26)
[2017-04-26] MEDS: MIRALAX PO SCH (08:48)
[2017-04-26] MEDS: TOPROL XL PO SCH (08:48)
[2017-04-26] MEDS: FERROUS SULFATE PO SCH (08:48)
[2017-04-26 11:40] VITALS: BP 123/99
--- NOTE | 2017-04-26 18:18 | DISCHARGE SUMMARY ---
ADMISSION DATE: 04/16/2017 DISCHARGE DATE: 04/26/2017 ADMISSION DIAGNOSES: 1. Nausea and vomiting with diarrhea. 2. Diabetes. 3. Hypertension. 4. Cervical cancer status post chemotherapy and robotic total hysterectomy in February 2017. 5. Hypothyroidism. 6. Anemia. DISCHARGE DIAGNOSES: 1. Persistent right middle lobe pneumonia. 2. Nausea, vomiting and diarrhea improved. 3. Pain with poor control. 4. Diabetes. 5. Hypothyroidism. 6. Uterine cancer. SUMMARY OF FINDINGS: This is a 61-year-old, female with a history of ovarian cancer advanced status post 6 cycles of chemotherapy and a robotic total hysterectomy on 03/06/2017 who presents to the emergency room complaining of nausea, vomiting and diarrhea for 3 days, and states that it actually began since starting chemotherapy. She denied any black or bloody vomitus, black or bloody stools. She is able to eat solid food stating that the nausea and vomiting is intermittent. Food does not aggravate it at this time. She was not orthostatic in the emergency room. She was found to have a hemoglobin of 7.8, hematocrit of 24.3, D-dimer of 5.10. CTA of pulmonary arteries was negative. She was admitted, placed on IV antibiotics, pattern blood sugars. A chest CT was performed on 04/21/2017 where she was found to have an increasing right pleural effusion and development of a small left effusion, atelectasis bilaterally and a very nodular pleural thickening at the periphery of the right lung as well as nodularity along the pleural fissures bilaterally. A thoracentesis via ultrasound per radiologist was done on 04/22/2017 and removed 400 mL of slightly turbid yellowish fluid, and she tolerated the procedure well. Those results were sent to Pathology with negative results for any cancer cells. On 04/22/2017 Infectious Disease was consulted for her bibasilar pneumonia. Her Rocephin and doxycycline were discontinued at that time, and she was placed on vancomycin and cefepime. She had a temperature on that day of 101.7, now she has a low-grade temp of 99.2 degrees and below, nothing above that for greater than 48 hours. Her white blood cell count is within normal limits. Her hemoglobin and hematocrit are stable at 9.8 and 30.2. Electrolytes are all stable and it is felt that she can safely be discharged home with home health with [facility]. DISCHARGE MEDICATIONS: 1. She was given a prescription for Omnicef 300 mg 1 p.o. b.i.d. #14 with no refills. 2. Clindamycin 300 mg p.o. t.i.d. #21 with no refills. 3. Aspirin 81 mg p.o. daily. 4. Iron 325 mg p.o. daily. 5. Gabapentin 300 mg p.o. at bedtime. 6. [place] 10, 1 p.o. q.6 hours p.r.n. #30 with no refills. 7. Lisinopril 20 mg p.o. daily. 8. Metformin 1000 mg p.o. daily. 9. Methimazole 5 mg p.o. t.i.d. 10. Toprol-XL 100 mg p.o. daily. FOLLOWUP: She will follow up with her oncologist as scheduled. We gave her the number for the physician referral line. Also to establish with a primary care physician. Again she will have home health with [facility]. DISCHARGE TIME: 35 minutes. Dictated by MARIA T Oliveira for Ronaldo Walton MD cc: MARIA T Oliveira MD
--- NOTE | 2017-05-09 02:21 | PROVIDER DOCUMENTATION ---
This chart was entered by Latonia Barillas Scribe, acting as scribe for Eladio Franco MD. HPI-Abdominal Pain/GI Problem <Hi Espino Kelly - Last Filed: 04/16/17 08:59> - General Source: patient - History of Present Illness-ABD Nature of Presenting Problems: 61 year old F presents to the ED with a cc of nausea, vomiting, and diarrhea x4 days. PT states that she has ovarian cancer but has not had chemo in 1 month. PT states that she starts back with chemo on . Abdominal Pain Onset Location: reports: generalized abdomen Severity in ED: reports: mild Onset/Duration: reports: 4 days ago Timing: reports: still present Activities at Onset: reports: none # of Diarrhea Episodes: 4 (last 4 days) # of Vomiting Episodes: 6 (last 4 days) Bruising or Bleeding Gums?: No Similar Symptoms Previously?: No Recently seen or treated by another doctor?: No <Elaido Franco - Last Filed: 05/09/17 02:21> - General Chief Complaint: Dizziness Stated Complaint: n/v/d Time Seen by Provider: 04/16/17 02:20 Allergies/Adverse Reactions: Patient Allergies Allergy/AdvReac Type Severity Reaction Status Date / Time codeine Allergy RASH Verified 05/02/17 11:03 Penicillins Allergy RASH Verified 05/02/17 11:03 Home Medications: Home Medication List Medication Instructions Recorded Confirmed Last Taken Type Aspirin [Aspirin EC] 81 mg PO DAILY 04/17/16 05/02/17 05/02/17 History Gabapentin 300 mg PO HS 04/17/16 05/02/17 05/01/17 History Metformin HCl 1,000 mg PO BID 04/17/16 05/02/17 05/02/17 History Metoprolol Succinate E.r. [Toprol 100 mg PO DAILY 04/17/16 05/02/17 05/02/17 History Xl] LISINOpril [Prinivil] 20 mg PO DAILY 08/25/16 05/02/17 05/02/17 History Ferrous Sulfate 1 tab PO DAILY 04/16/17 05/02/17 05/02/17 History Methimazole 5 mg PO TID 04/16/17 05/02/17 05/02/17 History CefDINIR [Omnicef] 300 mg PO BID #14 capsule 04/26/17 05/02/17 05/02/17 Rx Clindamycin [Cleocin] 300 mg PO TID #21 capsule 04/26/17 05/02/17 05/02/17 Rx Hydrocodone/APAP 10 mg/325 mg 1 each PO Q6H PRN PRN #30 tablet 04/26/1705/02/17 Rx [Piffard-10] Review of Systems - Adult - REVIEW OF SYSTEMS - ADULT Constitutional: reports: no symptoms reported, fatique, weight loss <Hi Espino I - Last Filed: 04/16/17 08:59> - REVIEW OF SYSTEMS - ADULT Constitutional: denies: chills, fever Eyes: reports: no symptoms reported Ears, Nose, Mouth & Throat: reports: no symptoms reported Cardiovascular: reports: no symptoms reported Respiratory: denies: cough, shortness of breath Gastrointestinal: reports: diarrhea, nausea, vomiting Genitourinary: reports: no symptoms reported Musculoskeletal: reports: no symptoms reported Integumentary: reports: no symptoms reported Neurological: reports: no symptoms reported Psychiatric: reports: no symptoms reported Endocrine: reports: no symptoms reported Hematologic/Lymphatic: reports: no symptoms reported Allergic/Immunologic: reports: no symptoms reported All Other Systems: Reviewed and Negative <Eladio Franco - Last Filed: 05/09/17 02:21> Past History - Adult - PAST MEDICAL HISTORY-ADULT Review of Records: reports: Old Records Reviewed, Nursing Assessment Review, Medications Reviewed, Social history reviewed & non-contributory. <Hi Espino I - Last Filed: 04/16/17 08:59> - PAST MEDICAL HISTORY-ADULT Review of Records: reports: Nursing Assessment Review, Medications Reviewed Major Childhood Illnesses: reports: denies history Cardiovascular: reports: HTN, hyperlipidemia Respiratory: reports: denies history Gastrointestinal: reports: denies history Obstetrical/Gynecological: reports: denies history Genitourinary: reports: denies history Musculoskeletal: reports: denies history Neurological: reports: denies history Endocrine/Immune: reports: Diabetes Other Conditions: reports: denies history - PRIOR SURGERIES/PROCEDURES Surgical/Procedure History: reports: - IMMUNIZATION STATUS Childhood Immunizations: See Nurse Assessment Flu Vaccine: See Nurse Assessment - FAMILY HISTORY Family History: reviewed, not pertinent - SOCIAL HISTORY Smoking: non-smoker Substance Use: none/never Alcohol Use Frequency: never <Eladio Franco - Last Filed: 05/09/17 02:21> Physical Exam-General - PHYSICAL EXAM-ADULT Initial Vital Signs Reviewed: Yes - CONSTITUTIONAL General Appearance: mild distress. negative: appears well <Hi Espino I - Last Filed: 04/16/17 08:59> - PHYSICAL EXAM-ADULT Initial Vital Signs Reviewed: Yes - CONSTITUTIONAL General Appearance: alert, mild distress - RESPIRATORY Respiratory: lungs clear, normal breath sounds, other (anterior chest wall tenderness) - CARDIOVASCULAR Cardiovascular: normal peripheral pulses, regular rate, rhythm, no edema - GASTROINTESTINAL (ABDOMEN) Abdominal Exam: soft, tenderness (RUQ) - SKIN Integumentary: normal color, normal turgor, warm/dry - PSYCHIATRIC Psych/Mental Status: normal mood/affect, normal thought content, normal thought process, oriented x 3 <Eladio Franco - Last Filed: 05/09/17 02:21> Progress - PLAN OF CARE/RESULTS Progress/Plan/Lab Results: Vital Signs - 8 hr 04/16/17 01:43 04/16/17 04:58 04/16/17 05:01 Temperature 99 F Pulse Rate 74 Pulse Rate [Sitting] 76 Pulse Rate [Standing] 92 H Pulse Rate [Supine] 70 Respiratory Rate 18 Blood Pressure 194/090 Blood Pressure [Sitting] 152/96 Blood Pressure [Standing] 133/79 Blood Pressure [Supine] 148/77 O2 Sat by Pulse Oximetry 99 04/16/17 05:04 04/16/17 08:19 Temperature 97.7 F Pulse Rate 62 Pulse Rate [Sitting] 76 Pulse Rate [Standing] Pulse Rate [Supine] Respiratory Rate 14 Blood Pressure 140/67 Blood Pressure [Sitting] Blood Pressure [Standing] Blood Pressure [Supine] O2 Sat by Pulse Oximetry 100 Laboratory Results - last 24 hr 04/16/17 04/16/17 04/16/17 02:00 03:10 03:10 WBC 7.82 RBC 2.76 L Hgb 7.8 L Hct 24.3 L MCV 88.0 MCH 28.3 MCHC 32.1 L RDW Std Deviation 14.0 Plt Count 191 MPV 9.3 Immature Gran % (Auto) 0.3 Neut % (Auto) 62.0 Lymph % (Auto) 28.9 Hale % (Auto) 7.9 Eos % (Auto) 0.8 Baso % (Auto) 0.1 Immature Gran # (Auto) 0.02 Neut # (Auto) 4.85 Lymph # (Auto) 2.26 Hale # (Auto) 0.62 H Eos # (Auto) 0.06 Baso # (Auto) 0.01 D-Dimer Sodium 139 Potassium 3.4 L Chloride 102 Carbon Dioxide 20 L Anion Gap 16 BUN 11 Creatinine 0.9 Estimated GFR/1.73 m2 > 60 BUN/Creatinine Ratio 12 Glucose 126 H POC Glucose 140 H Calculated Osmolality 278 Calcium 9.2 Total Bilirubin 0.20 AST 10 ALT 5 L Alkaline Phosphatase 72 Total Protein 7.3 Albumin 3.8 Globulin 4.0 Albumin/Globulin Ratio 1.0 04/16/17 03:10 WBC RBC Hgb Hct MCV MCH MCHC RDW Std Deviation Plt Count MPV Immature Gran % (Auto) Neut % (Auto) Lymph % (Auto) Hale % (Auto) Eos % (Auto) Baso % (Auto) Immature Gran # (Auto) Neut # (Auto) Lymph # (Auto) Hale # (Auto) Eos # (Auto) Baso # (Auto) D-Dimer 5.10 H Sodium Potassium Chloride Carbon Dioxide Anion Gap BUN Creatinine Estimated GFR/1.73 m2 BUN/Creatinine Ratio Glucose POC Glucose Calculated Osmolality Calcium Total Bilirubin AST ALT Alkaline Phosphatase Total Protein Albumin Globulin Albumin/Globulin Ratio Orders Category Date Time Status ANGIOGRAM/PULMONARY ARTERIES [CT] Stat Exams 04/16/17 06:05 Completed CHEST-PORTABLE [RAD] Stat Exams 04/16/17 05:02 Completed CBC WITH DIFF [HEME] Stat Lab 04/16/17 03:10 Completed CMP [COMPREHENSIVE METABOLIC PANEL] [CHEM] Stat Lab 04/16/17 03:[address] [COAG] Stat Lab 04/16/17 03:10 Completed 0.9% Sodium Chloride Inj [Ns] 1,000 ml Med 04/16/17 08:23 Active IV 125 mls/hr Hydrocodone/APAP 7.5 mg/325 mg [[place]-7.5] Med 04/16/17 03:02 Discontinued 1 each PO NOW ONE Ondansetron Odt [Zofran Odt] Med 04/16/17 03:16 Discontinued 4 mg PO NOW ONE Result Diagrams: 04/16/17 03:10 05/30/17 03:10 - REASSESSMENT Reassessment #1 Reassessment Comment: generalized weakness, anemia, and dehydration. will admit. <Hi Espino I - Last Filed: 04/16/17 08:59> - PLAN OF CARE/RESULTS Progress/Plan/Lab Results: Vital Signs - 8 hr 04/16/17 01:43 Temperature 99 F Pulse Rate 74 Respiratory Rate 18 Blood Pressure 194/090 O2 Sat by Pulse Oximetry 99 Result Diagrams: 04/25/17 09:01 04/25/17 09:01 <Eladio Franco - Last Filed: 05/09/17 02:21> Departure - Departure Time of Disposition Decision: 08:32 Certified Medical Emergency: Emergent - Critical Care Note This patient required my direct & personal management of CC.: Yes <Hi Espino I - Last Filed: 04/16/17 08:59> - Departure Date of Disposition Decision: 04/16/17 Time of Disposition Decision: 08:32 Certified Medical Emergency: Emergent - Critical Care Note This patient required my direct & personal management of CC.: No <Eladio Franco - Last Filed: 05/09/17 02:21> - Departure DIAGNOSIS: Anemia, Generalized weakness, Dehydration Disposition: ADMITTED INPATIENT 09 Condition: Stable Attestation - Physician/ FLORENTIN Attestation The physician spent face to face time with patient:: Yes Advanced Practice Provider documentation review:: The physician spent face to face time with this patient and agrees with all MLP documentation, treatment, and medical decision making by the MLP. See provider notes for further information. <Hi Espino I - Last Filed: 04/16/17 08:59> This chart was documented by the indicated scribe, (Latonia Barillas Scribe) and accurately reflects the services I performed and decisions made by me, Eladio Franco MD, as attested by the provider's signature.
== END 2017-04-26 14:24 | disposition home health service (06) ==
LOC: P.ED 01:42 → SUPCPDRO 09:56 → SUATTDRO 09:56 → P.MEDSURG 09:56
PROVIDERS: ATTEND Family Medicine

== ENCOUNTER 2017-05-02 10:59 | Inpatient (IN) ==
[2017-05-02] MEDS ORDERED: ASPIRIN PO STA (12:02)
[2017-05-02 12:26] LABS: MANUAL DIFF NEEDED? NO
[2017-05-02 12:37] LABS: BASO% 0.2 % (0.0-0.8); EOS# 0.07 X1000 (0.0-0.7); EOS% 0.4 % (0.0-10.0); HEMATOCRIT 23.8 % (37.0-47.0); HEMOGLOBIN 7.9 g/dL (12.0-16.0); IMM GRAN# 0.08 X1000 (0.0-0.04); IMM GRAN% 0.4 % (0.0-0.5); LYMPH# 2.14 X1000 (1.2-3.4); LYMPH% 10.9 % (20.5-51.1); MCH 28.4 PG (27-31); MCHC 33.2 g/dL (33-37); MCV 85.6 FL (81-99); MONO# 1.49 X1000 (0.11-0.59); MONO% 7.6 % (1.7-9.3); MPV 9.3 FL (7.4-10.4); NEUT% 80.5 % (42.2-75.2); PLT 227 X1000 (130-400); RBC 2.78 XMIL (4.2-5.4)
--- NOTE | 2017-05-02 12:41 | EKG Report ---
Test Performed on : 05/02/2017 12:36:48 PM Test Reason : CHEST PAIN Blood Pressure : / mmHG Vent. Rate : 078 BPM Atrial Rate : 078 BPM P-R Int : 152 ms QRS Dur : 082 ms QT Int : 376 ms P-R-T Axes : 024 -10 -07 degrees QTc Int : 428 ms Normal sinus rhythm. Cannot rule out Anterior infarct , age undetermined Abnormal ECG When compared with ECG of 04-APR-2010 00:24, Inverted T waves have replaced nonspecific T wave abnormality in Anterior leads T wave amplitude has increased in Lateral leads Unconfirmed Result
[2017-05-02 12:45] LABS: ALBUMIN 3.2 g/dL (3.5-5.0); CALCIUM 8.6 mg/dL (8.8-10.2); MAGNESIUM 1.7 mg/dL (1.5-2.7); POTASSIUM 4.2 mmol/L (3.5-5.1); TOTAL BILIRUBIN 0.4 mg/dL (0.20-1.00); TOTAL PROTEIN 7.3 g/dL (6.3-8.3)
--- NOTE | 2017-05-02 12:46 | Diag Imaging Result Doc PS360 ---
EXAM: CHEST-PORTABLE HISTORY: CP TECHNIQUE: Erect AP portable at 1220 COMMENT: There continues to be some lateral opacity in the right upper lobe which has diminished since the previous study of 04/22/2017. There is also less thickening or fluid in the minor fissure. There is some atelectasis in the left costophrenic angle. IMPRESSION: Improved right upper lobe pneumonia. Electronically signed by Omer Barros 05/02/2017 12:44 PM
[2017-05-02 13:08] LABS: INR 1.13 (0.86-1.15); PROTIME 14.8 Seconds (12.1-15.5)
[2017-05-02 13:09] LABS: PTT PL 32.7 Seconds (22.6-43.9)
[2017-05-02] MEDS ORDERED: LEVAQUIN 500 MG/D5W 500 MG/100 ML IVPB IV ONE (14:04)
--- NOTE | 2017-05-02 14:09 | PROVIDER DOCUMENTATION ---
This chart was entered by Lindsey Miller Scribe, acting as scribe for Hi Espino MD. HPI-General Adult - General Chief Complaint: General Adult Stated Complaint: fever,cough,weakness Time Seen by Provider: 05/02/17 11:04 Source: patient Allergies/Adverse Reactions: Patient Allergies Allergy/AdvReac Type Severity Reaction Status Date / Time codeine Allergy RASH Verified 05/02/17 11:03 Penicillins Allergy RASH Verified 05/02/17 11:03 Home Medications: Home Medication List Medication Instructions Recorded Confirmed Last Taken Type Aspirin [Aspirin EC] 81 mg PO DAILY 04/17/16 05/02/17 05/02/17 History Gabapentin 300 mg PO HS 04/17/16 05/02/17 05/01/17 History Metformin HCl 1,000 mg PO BID 04/17/16 05/02/17 05/02/17 History Metoprolol Succinate E.r. [Toprol 100 mg PO DAILY 04/17/16 05/02/17 05/02/17 History Xl] LISINOpril [Prinivil] 20 mg PO DAILY 08/25/16 05/02/17 05/02/17 History Ferrous Sulfate 1 tab PO DAILY 04/16/17 05/02/17 05/02/17 History Methimazole 5 mg PO TID 04/16/17 05/02/17 05/02/17 History CefDINIR [Omnicef] 300 mg PO BID #14 capsule 04/26/17 05/02/17 05/02/17 Rx Clindamycin [Cleocin] 300 mg PO TID #21 capsule 04/26/17 05/02/17 05/02/17 Rx Hydrocodone/APAP 10 mg/325 mg 1 each PO Q6H PRN PRN #30 tablet 04/26/1705/02/17 Rx [[place]-10] - History of Present Illness -Gen Adult Nature of Presenting Problems: 61 yo F presents to the ER with complaint of fever, cough, and weakness. Pt had pneumonia last week and was admitted to the hospital. Pt states she has a hx of ovarian cancer and last chemo treatment was x2 months ago. Associated Symptoms: reports: cough, fever/chills, weakness Review of Systems - Adult - REVIEW OF SYSTEMS - ADULT Constitutional: denies: chills, fever Eyes: reports: no symptoms reported Ears, Nose, Mouth & Throat: reports: no symptoms reported Cardiovascular: denies: chest pain, palpitations Respiratory: reports: cough, shortness of breath Gastrointestinal: denies: diarrhea, nausea, vomiting Genitourinary: reports: no symptoms reported Musculoskeletal: reports: no symptoms reported Integumentary: reports: no symptoms reported Neurological: reports: no symptoms reported Psychiatric: reports: no symptoms reported Endocrine: reports: no symptoms reported Hematologic/Lymphatic: reports: no symptoms reported Allergic/Immunologic: reports: no symptoms reported All Other Systems: Reviewed and Negative Past History - Adult - PAST MEDICAL HISTORY-ADULT Review of Records: reports: Nursing Assessment Review, Medications Reviewed Cardiovascular: reports: HTN, hyperlipidemia Endocrine/Immune: reports: Diabetes Other Conditions: reports: denies history - PRIOR SURGERIES/PROCEDURES Surgical/Procedure History: reports: - IMMUNIZATION STATUS Childhood Immunizations: See Nurse Assessment Flu Vaccine: See Nurse Assessment Physical Exam-General - PHYSICAL EXAM-ADULT Initial Vital Signs Reviewed: Yes - CONSTITUTIONAL General Appearance: alert, lethargic - EYES Eyes: PERRL/EOMI, pink conjunctivae - HEAD, EARS, NOSE, MOUTH & THROAT HENMT: normocephalic/atraumatic, normal ENT inspection - NECK Neck: supple, normal inspection - RESPIRATORY Respiratory: no respiratory distress, no accessory muscle use, decreased breath sounds (worse on L side) - CARDIOVASCULAR Cardiovascular: normal peripheral pulses, regular rate, rhythm - GASTROINTESTINAL (ABDOMEN) Abdominal Exam: normal bowel sounds, non tender, soft - MUSCULOSKELETAL Back Exam: no CVA tenderness, no vertebral tenderness Extremity: normal gait, normal inspection - SKIN Integumentary: normal color, warm/dry - NEUROLOGIC Neurologic: grossly normal, no motor/sensory deficits - PSYCHIATRIC Psych/Mental Status: normal mood/affect, normal thought content, normal thought process, oriented x 3 Progress - PLAN OF CARE/RESULTS Progress/Plan/Lab Results: Vital Signs - 8 hr 05/02/17 11:07 Temperature 100.3 F H Pulse Rate 88 Respiratory Rate 17 Blood Pressure 123/58 O2 Sat by Pulse Oximetry 94 L Result Diagrams: 05/02/17 12:21 05/02/17 12:21 - EKG 1 Time of EKG reading by physician:: 12:36 EKG Read and Signed by:: Hi Espino EKG Interpretation (*Must complete 3 of following elements*): Abnormal Rate: 78 Rhythm: normal sinus rhythm [place]: normal QRS: normal AL Interval: normal ST Wave: normal Comments: cannot rule out anterior infarct, age undetermined - XRAY 1 XRAY Study: Chest Impression: See EMR Report (improved R upper lobe pneumonia, per radiologist) Comparison with other Films: changes noted Departure - Departure Date of Disposition Decision: 05/02/17 Time of Disposition Decision: 14:08 DIAGNOSIS: Pneumonia, Generalized weakness, Anemia Disposition: ADMITTED INPATIENT 09 Certified Medical Emergency: Emergent Condition: Stable Referrals and Follow-Ups: Ronaldo Walton MD [Primary Care Provider] - - Critical Care Note This patient required my direct & personal management of CC.: No Attestation - Physician/ FLORENTIN Attestation The physician spent face to face time with patient:: Yes Advanced Practice Provider documentation review:: The physician spent face to face time with this patient and agrees with all MLP documentation, treatment, and medical decision making by the MLP. See provider notes for further information. This chart was documented by the indicated scribe, (Lindsey Miller Scribe) and accurately reflects the services I performed and decisions made by me, Hi Espino MD, as attested by the provider's signature.
--- NOTE | 2017-05-02 16:26 | HISTORY AND PHYSICAL ---
CHIEF COMPLAINT: Fever, cough, weakness. HISTORY OF PRESENT ILLNESS: This is a 61-year-old female with a history of ovarian cancer who is status post 6 cycles of chemotherapy and underwent robotic hysterectomy on 03/06/2017. She presented to the emergency room complaining of fever, increasing cough and weakness. She was hospitalized from April 16 until April 26 for pneumonia and she comes in today having persistent right upper lobe pneumonia but with some improvement from 04/22/2017 x-ray. She has a temperature of 100.3 degrees in the emergency room. At home she stated that she had a fever although it was a subjective fever. She did have a white count of 19, with a hemoglobin of 7.9 and a hematocrit of 23.8. She was given Levaquin in the emergency room and she is being admitted for further evaluation and treatment. PAST MEDICAL HISTORY: 1. Advanced stage ovarian cancer, having completed 4 rounds of chemotherapy 03/02/2017. 2. Asthma. 3. Diabetes mellitus. 4. Hyperlipidemia. 5. Hypertension. 6. Hypothyroid. PAST SURGICAL HISTORY: , robotic total hysterectomy 03/06/2017. SOCIAL HISTORY: Denies alcohol, tobacco, or illicit drug use. ALLERGIES: Codeine which causes a rash and penicillin which causes a rash. HOME MEDICATIONS: Metoprolol-XL 100 mg daily. Methimazole 5 three times a day. Metformin 1000 b.i.d. Prinivil 20 daily. [place] 10 q.6 hours p.r.n. Gabapentin 300 at bedtime. Ferrous sulfate 1 daily. Clindamycin, she is currently on day 7. Omnicef 300 mg b.i.d. should be completed. Enteric-coated aspirin 81 mg. REVIEW OF SYSTEMS: A 14 point review of systems is discussed with patient with pertinent positives stated in the HPI. She denied chest pain, palpitations, dizziness, syncope, PND, orthopnea, nausea, vomiting, diarrhea, constipation. PHYSICAL EXAMINATION: GENERAL: This is a 61-year-old female, who is lying in the bed, in no distress. VITAL SIGNS: Blood pressure is 140/78, with a heart rate of 84, respirations are 20, temperature is 99.8 degrees oral with oxygen saturations of 97%-98% on 2 L nasal cannula. HEENT: Head is normocephalic, atraumatic. Pupils equal, round, react to light. EOMs are intact. Sclerae anicteric. Mucous membranes are moist. NECK: Supple. Trachea midline. CARDIOVASCULAR: Regular rate and rhythm. S1, S2 appreciated. PULMONARY: Breath sounds are decreased throughout with left side greater than right. Chest rises and falls symmetrically with respiration. GASTROINTESTINAL: Abdomen was soft, nontender, nondistended, with bowel sounds in all 4 quadrants. BACK: No CVAT. No spine tenderness. MUSCULOSKELETAL: Good range of motion of joints. NEUROLOGIC: She is alert and oriented x3 with cranial nerves 2-12 grossly intact. SKIN: Warm and dry. EXTREMITIES: No clubbing, cyanosis, or edema. Calves are nontender. Pulses are palpable x4. DIAGNOSTIC DATA: Labs: WBC is 19.6, with hemoglobin 7.9, hematocrit 23.8, platelets of 227,000. Sodium is 131, potassium 4.2, BUN 7, creatinine 1, with a glucose of 164. Chest x-ray reveals right upper lobe pneumonia improved from 04/22/2017 chest x-ray. ASSESSMENT: 1. Right upper lobe pneumonia. Persistent. 2. Leukocytosis secondary to #1. 3. Anemia. 4. Generalized weakness. 5. Diabetes mellitus. 6. Hypertension. 7. Hyperthyroid. PLAN: We will obtain blood cultures. She was given a dose of Levaquin in the emergency room as she is status post chemotherapy and surgery. We will go ahead and give vancomycin and cefepime. We will identify her home medications and continue. We will hold metformin. At present, place her on pattern blood glucose with sliding scale insulin. We will trend labs daily. We will give supplemental oxygen. The patient is under the care of Dr. Landers, [facility] in [place]. He is managing her chemotherapy as well as her surgery and followup. We will be transferring the patient to [facility] for pulmonary availability to follow. Further treatments pending hospital course. Dictated by MARIA T Shields for Ronaldo Walton MD cc: MARIA T Shields MD
[2017-05-02] MEDS ORDERED: VANCOMYCIN IV PER PHARMACY MISC SCH (17:50)
[2017-05-02] MEDS ORDERED: DUONEB (A & A) INH PRN (17:50)
[2017-05-02] MEDS ORDERED: ZOFRAN IV PRN (17:50)
[2017-05-02] MEDS: NS 1,000 ML IV SCH (18:14)
[2017-05-02] MEDS: HUMALOG SUBQ SCH ×2 (18:14→21:21)
[2017-05-02] MEDS: NORCO-10 PO PRN (18:15)
[2017-05-02] MEDS: TAPAZOLE PO SCH (18:15)
[2017-05-02] MEDS: PROTONIX IV SCH (18:15)
[2017-05-02] MEDS: DUONEB (A & A) INH SCH ×2 (19:35→22:35)
[2017-05-02] MEDS ORDERED: VANCOMYCIN 1.7 GM in NS 250 ML IV ONE (21:00)
[2017-05-02] MEDS: NEURONTIN PO SCH (21:21)
[2017-05-03] MEDS: NORCO-10 PO PRN ×4 (00:07→18:56)
[2017-05-03] MEDS: MAXIPIME 2 GM/NS 2 GM/100 ML IVPB IV SCH ×2 (01:07→11:54)
[2017-05-03] MEDS: DUONEB (A & A) INH SCH ×6 (03:40→23:10)
[2017-05-03 05:52] LABS: HEMATOCRIT 23.8 % (37.0-47.0); HEMOGLOBIN 7.8 g/dL (12.0-16.0); MCH 29.2 PG (27-31); MCHC 32.8 g/dL (33-37); MCV 89.1 FL (81-99); MPV 9.5 FL (7.4-10.4); RBC 2.67 XMIL (4.2-5.4)
[2017-05-03 06:14] LABS: AGAP 14; BUN 6 mg/dL (8-22); CALCIUM 8.7 mg/dL (8.8-10.2); CHLORIDE 98 mmol/L (98-107); COSMO 268; POTASSIUM 3.9 mmol/L (3.5-5.1); SODIUM 134 mmol/L (136-145); TCO2 22 mmol/L (25-35)
[2017-05-03] MEDS: HUMALOG SUBQ SCH ×4 (06:15→21:35)
[2017-05-03 06:30] LABS: IRON SATURATION 18 %; TIBC 131 ug/dL; TOTAL IRON 24 ug/dL (49-151); UNBOUND IRON 107 ug/dL (112-346)
[2017-05-03 06:45] LABS: FERRITIN 417 ng/mL (13-150)
[2017-05-03] MEDS: PRINIVIL PO SCH (10:12)
[2017-05-03] MEDS: ASPIRIN EC PO SCH (10:12)
[2017-05-03] MEDS: FERROUS SULFATE PO SCH (10:13)
[2017-05-03] MEDS: TOPROL XL PO SCH (10:13)
[2017-05-03] MEDS: TAPAZOLE PO SCH ×3 (10:16→16:04)
--- NOTE | 2017-05-03 12:00 | PROGRESS NOTE ---
DATE: 05/03/2017 SUBJECTIVE: The patient is not feeling well today. She is still having a nonproductive cough. She denies having any fever or chills. Still having very poor appetite. OBJECTIVE: Vital Signs: Blood pressure 128/59, pulse of 102, respirations 20, temperature 98.5 degrees, saturations of 96% on 2 L nasal cannula. General Appearance: Well-developed, well- nourished black female in no acute distress. HEENT: Anicteric. Clear conjunctivae. Neck supple. No JVD. No bruits. Cardiovascular: S1, S2. Normal rate and rhythm. No murmur, rubs, or gallops. Pulmonary: Crackle bilaterally. GI: Soft, nontender, nondistended. Normoactive bowel sounds. Musculoskeletal: No clubbing, cyanosis, or edema. LABORATORY: Her white count 17.71, hemoglobin 7.8, hematocrit of 23.8, platelets of 221,000. Chemistry: Sodium 134, potassium 3.9, chloride 98, bicarb 22. BUN 6, creatinine 1.1, glucose of 131. Chest x-ray showed right upper lobe pneumonia. ASSESSMENT AND PLAN: A 61-year-old white female admitted to the hospital with fevers, cough, weakness, and chest x-ray shows her to have pneumonia. 1. Pneumonia right upper lobe as on x-ray. The patient is on broad-spectrum antibiotics because of her recent chemotherapy concerning for immunosuppressed. Cultures are still pending. 2. Ovarian cancer. The last was over 2 months ago because she has been weak and has not been able to get anymore chemo. She is followed by the public health advisor and oncologist in [place]. 3. Hypertension. We will continue lisinopril. 4. Iron deficiency anemia secondary to chronic disease. We will continue iron supplement. 5. Deep vein thrombosis prophylaxis. I put the patient on Lovenox. 6. CODE STATUS: The patient is a FULL CODE.
[2017-05-03] MEDS ORDERED: MEDROL DOSEPAK PO SCH (12:45)
--- NOTE | 2017-05-03 16:34 | CONSULTATION ---
DATE OF CONSULTATION: 05/03/2017 REFERRING PHYSICIAN: Dr. John Paulino. CHIEF COMPLAINT: Evaluation for pneumonia. HISTORY OF PRESENTING ILLNESS: This is a 61-year-old female with past history of chemotherapy for ovarian cancer. In the past, had hysterectomy and came into the hospital with cough, fever and weakness and was found to have a pneumonia in the recent past. Chest CT scan showed pleural effusion, pleural thickening, possible nodularity, and at that time she had thoracentesis with ultrasound guidance. PAST MEDICAL HISTORY: Hypothyroidism, hypertension, hyperlipidemia, diabetes, asthma and stage IV ovarian cancer. PAST SURGICAL HISTORY: C section. Hysterectomy on 03/06/2017. SOCIAL HISTORY: Nonsmoker. ALLERGIES: Possibly to codeine. HOME MEDICATIONS: Reviewed. FAMILY HISTORY: Hypertension. REVIEW OF SYSTEMS: As detailed in history of presenting illness, otherwise noncontributory. PHYSICAL EXAMINATION: Vital Signs: Noted. General exam: Irritated with her own cough, awake and lethargic. Vital signs noted. Head and Neck: Trachea midline. Chest: Examination revealed reduced air entry. Cardiac exam: S1, S2. Abdomen: Nontender. Extremities: Lower limb examination with +1 pedal edema. Neurological exam: Awake, responsive. LABS AND INVESTIGATIONS: WBC is 17.7, hemoglobin 7.8, platelets 221, creatinine 1.1, potassium 3.9, CMP reviewed. Pleural fluid cytology was inconclusive. ABG is pending. MEDICATIONS: Medications in the hospital were reviewed and they include nebulized treatment, Lovenox for DVT prophylaxis, lithium, Solu-Medrol, metoprolol, Protonix and vancomycin. ASSESSMENT AND PLAN: A 61-year-old female with past history as above with ovarian cancer, pleural effusion status post thoracentesis recently, popliteal nodule, who now has pneumonia, shortness of breath and a cough. I agree with antibiotics and symptomatic treatment. Will check arterial blood gas. Deep vein thrombosis prophylaxis. If pleural effusion recurs, will consider thoracoscopy. Thank you for the courtesy of this consultation. cc: Rashel Gill MD
[2017-05-03] MEDS: NS 1,000 ML IV SCH ×2 (17:40→21:36)
[2017-05-03] MEDS: TYLENOL PO PRN (17:40)
[2017-05-03] MEDS: PROTONIX IV SCH (17:40)
[2017-05-03] MEDS ORDERED: TESSALON PO ONE (18:09)
[2017-05-03] MEDS: ROBITUSSIN PO PRN (21:31)
[2017-05-03] MEDS: NEURONTIN PO SCH (21:47)
[2017-05-03] MEDS: VANCOMYCIN 1.25 GM in NS 250 ML IV SCH (21:47)
[2017-05-04] MEDS: MAXIPIME 2 GM/NS 2 GM/100 ML IVPB IV SCH ×2 (02:02→13:40)
[2017-05-04] MEDS: ROBITUSSIN PO PRN ×3 (02:03→22:17)
[2017-05-04] MEDS: DUONEB (A & A) INH SCH ×6 (03:15→23:32)
[2017-05-04] MEDS: HUMALOG SUBQ SCH ×4 (06:29→22:28)
[2017-05-04 06:33] LABS: MANUAL DIFF NEEDED? NO
[2017-05-04 06:46] LABS: BASO% 0.2 % (0.0-0.8); EOS# 0.32 X1000 (0.0-0.7); HEMATOCRIT 22.5 % (37.0-47.0); HEMOGLOBIN 7.2 g/dL (12.0-16.0); IMM GRAN# 0.07 X1000 (0.0-0.04); IMM GRAN% 0.4 % (0.0-0.5); LYMPH# 1.99 X1000 (1.2-3.4); LYMPH% 12.7 % (20.5-51.1); MCH 27.7 PG (27-31); MCV 86.5 FL (81-99); MONO# 1.32 X1000 (0.11-0.59); MONO% 8.4 % (1.7-9.3); MPV 9.7 FL (7.4-10.4); NEUT% 76.3 % (42.2-75.2); PLT 224 X1000 (130-400)
[2017-05-04 07:12] LABS: AGAP 14; BUN 6 mg/dL (8-22); CALCIUM 8.8 mg/dL (8.8-10.2); CHLORIDE 101 mmol/L (98-107); COSMO 276; POTASSIUM 4.5 mmol/L (3.5-5.1); SODIUM 138 mmol/L (136-145); TCO2 23 mmol/L (25-35)
[2017-05-04] MEDS: FERROUS SULFATE PO SCH (09:41)
[2017-05-04] MEDS: TOPROL XL PO SCH (09:41)
[2017-05-04] MEDS: TAPAZOLE PO SCH ×3 (09:41→17:19)
[2017-05-04] MEDS: ASPIRIN EC PO SCH (09:41)
[2017-05-04] MEDS: TESSALON PO SCH ×3 (09:41→17:19)
[2017-05-04] MEDS: LOVENOX SUBQ SCH (09:42)
[2017-05-04] MEDS: PRINIVIL PO SCH (09:42)
[2017-05-04] MEDS: NORCO-10 PO PRN ×2 (09:51→17:21)
[2017-05-04] MEDS: TYLENOL PO PRN (12:39)
[2017-05-04] MEDS: MEDROL PO SCH ×3 (13:40→22:14)
--- NOTE | 2017-05-04 13:47 | PROGRESS NOTE ---
DATE: 05/04/2017 SUBJECTIVE: The patient is feeling a little better today. Still having a cough that is nonproductive. OBJECTIVE: Vital signs: Blood pressure 140/61, pulse 103, respirations 20, temperature 98.6 degrees, sat of 97% on 2 L nasal cannula. General appearance: Well-developed, well-nourished black female in no acute distress. HEENT: Anicteric. Clear conjunctivae. Neck: Supple. No JVD. No bruit. Cardiovascular: S1, S2. Normal rate and rhythm. No murmur, rubs, or gallops. Pulmonary: Clear to auscultation bilaterally. GI: Soft, nontender, nondistended. Normoactive bowel sounds. Musculoskeletal: No clubbing, cyanosis, or edema. LABORATORY: White count 15.70, hemoglobin 7.2, hematocrit of 22.5, platelets of 224,000. Sodium 138, potassium 4.5, chloride 100, bicarb 25. BUN 6. Creatinine 1.0. Glucose 114. ASSESSMENT AND PLAN: 61-year-old admitted to the hospital for nonproductive cough and right-sided pneumonia. 1. Right-sided pneumonia. Will continue cefepime and vancomycin. Pulmonology was consulted. Dr. Gill saw the patient and followed along with us. 2. Diabetes type 2. Continue sliding scale insulin. 3. Hypertension. Continue lisinopril and add metoprolol for now. 4. Deep vein thrombosis prophylaxis. The patient on Lovenox. 5. Iron deficiency anemia. Continue ferrous sulfate. 6. We will consult physical therapy to work with the patient. CODE STATUS: The patient is a full code. No surrogate decision maker was on site.
[2017-05-04] MEDS: NS 1,000 ML IV SCH (15:31)
[2017-05-04] MEDS: PROTONIX IV SCH (17:21)
[2017-05-04] MEDS: SODIUM CHLORIDE 0.9% INJ SCH (17:21)
[2017-05-04] MEDS: NEURONTIN PO SCH (22:17)
[2017-05-04] MEDS: VANCOMYCIN 1.25 GM in NS 250 ML IV SCH (22:18)
[2017-05-05] MEDS: NS 1,000 ML IV SCH ×2 (00:24→17:02)
[2017-05-05] MEDS: HUMALOG SUBQ SCH ×5 (00:25→21:02)
[2017-05-05] MEDS: NORCO-10 PO PRN ×2 (01:41→18:23)
[2017-05-05] MEDS: MAXIPIME 2 GM/NS 2 GM/100 ML IVPB IV SCH ×2 (01:43→16:18)
[2017-05-05] MEDS: DUONEB (A & A) INH SCH ×6 (03:13→23:20)
[2017-05-05 06:17] LABS: BASO% 0.1 % (0.0-0.8); HEMATOCRIT 23.8 % (37.0-47.0); HEMOGLOBIN 7.8 g/dL (12.0-16.0); IMM GRAN% 0.5 % (0.0-0.5); LYMPH% 4.7 % (20.5-51.1); MANUAL DIFF NEEDED? YES; MCHC 32.8 g/dL (33-37); MCV 85.3 FL (81-99); MONO# 0.48 X1000 (0.11-0.59); MONO% 2.5 % (1.7-9.3); MPV 9.7 FL (7.4-10.4); NEUT% 92.2 % (42.2-75.2); PLT 265 X1000 (130-400); RBC 2.79 XMIL (4.2-5.4)
[2017-05-05 07:08] LABS: AGAP 13; BUN 7 mg/dL (8-22); CALCIUM 9.5 mg/dL (8.8-10.2); CHLORIDE 104 mmol/L (98-107); COSMO 278; POTASSIUM 4.8 mmol/L (3.5-5.1); SODIUM 139 mmol/L (136-145); TCO2 22 mmol/L (25-35)
[2017-05-05 07:26] LABS: BANDS 10 % (0-1); LYMPHS 6 % (21-51); MONO 4 % (1-9)
[2017-05-05] MEDS: ASPIRIN EC PO SCH (08:50)
[2017-05-05] MEDS: PRINIVIL PO SCH (08:51)
[2017-05-05] MEDS: FERROUS SULFATE PO SCH (08:51)
[2017-05-05] MEDS: MEDROL PO SCH ×4 (08:51→21:02)
[2017-05-05] MEDS: TOPROL XL PO SCH (08:51)
[2017-05-05] MEDS: TESSALON PO SCH ×3 (08:51→16:19)
[2017-05-05] MEDS: TAPAZOLE PO SCH ×3 (08:51→16:19)
[2017-05-05] MEDS: LOVENOX SUBQ SCH (08:52)
--- NOTE | 2017-05-05 10:22 | PROGRESS NOTE ---
DATE: 05/15/2017 SUBJECTIVE: The patient is feeling well. Much better than she was yesterday. Cough is much improved. No fever. No chills. No nausea, vomiting, or diarrhea. OBJECTIVE: Vital Signs: Blood pressure 145/69, pulse of 99, respirations 20, temperature 98.4 degrees, T-max is T current. General appearance: Black female, no acute distress. Sitting up in bed, eating her breakfast. Neck: Supple. No JVD. No bruits. Cardiovascular: S1 and S2. Normal rate and rhythm. No murmur, rubs, or gallops. Pulmonary: Occasional crackles at the bases. GI: Soft, nontender, nondistended. Normoactive bowel sounds. Musculoskeletal: No clubbing, cyanosis, or edema. LABORATORY: WBC 19.31, hemoglobin 7.8, hematocrit of 23.8, platelets of 265,000. Chemistry: Sodium 139, potassium 4.8, chloride 104, bicarb 22, BUN 7, creatinine 0.8, glucose of 150. ASSESSMENT AND PLAN: This is a 61-year-old black female admitted to the hospital for pneumonia. 1. Right-sided pneumonia. The patient is on cefepime and vancomycin due to her recent chemotherapy concerning for immunosuppression. 2. Diabetes type 2. Continue sliding scale insulin. 3. Hypertension. Continue lisinopril and metoprolol. 4. Deep vein thrombosis prophylaxis. Patient is on Lovenox. 5. Iron deficiency anemia. Continue iron supplement. 6. Continue physical therapy. Will recheck her lab work tomorrow. We will keep the patient on a few more days of IV antibiotics. We will continue to follow culture. Hopefully we can get the patient home soon.
[2017-05-05] MEDS: ROBITUSSIN PO PRN ×2 (10:33→18:24)
[2017-05-05 12:53] LABS: INR 1.04
--- NOTE | 2017-05-05 13:22 | Diag Imaging Result Doc PS360 ---
EXAM: CHEST-2 VIEWS INDICATION: pneumonia TECHNIQUE: 2 views COMPARISON: 05/02/2017 FINDINGS: The focal opacity at the periphery of the right upper lobe is essentially stable. There are probably trace effusions that are stable. There are no new consolidations. Cardiac silhouette is stable. IMPRESSION: Essentially stable chest. Electronically signed by Gil Preciado 05/05/2017 1:20 PM
[2017-05-05] MEDS ORDERED: NS 250 ML ONE (14:00)
[2017-05-05] MEDS: PROTONIX IV SCH ×2 (16:19→19:31)
[2017-05-05] MEDS: SODIUM CHLORIDE 0.9% INJ SCH (16:19)
[2017-05-05] MEDS: NEURONTIN PO SCH (21:02)
[2017-05-05] MEDS: VANCOMYCIN 1.5 GM in NS 250 ML IV SCH (21:03)
[2017-05-06] MEDS: NS 1,000 ML IV SCH ×2 (02:11→17:51)
[2017-05-06] MEDS: MUCINEX PO SCH ×3 (02:11→20:55)
[2017-05-06] MEDS: MAXIPIME 2 GM/NS 2 GM/100 ML IVPB IV SCH ×2 (02:11→15:20)
[2017-05-06] MEDS: DUONEB (A & A) INH SCH ×6 (03:10→23:32)
[2017-05-06] MEDS: HUMALOG SUBQ SCH ×4 (06:45→21:29)
[2017-05-06 07:13] LABS: AGAP 13; BUN 11 mg/dL (8-22); CALCIUM 9.1 mg/dL (8.8-10.2); CHLORIDE 104 mmol/L (98-107); COSMO 285; POTASSIUM 4.2 mmol/L (3.5-5.1); SODIUM 139 mmol/L (136-145); TCO2 22 mmol/L (25-35)
[2017-05-06 07:22] LABS: BASO% 0.1 % (0.0-0.8); EOS# 0.01 X1000 (0.0-0.7); HEMATOCRIT 22.1 % (37.0-47.0); HEMOGLOBIN 7.1 g/dL (12.0-16.0); IMM GRAN# 0.23 X1000 (0.0-0.04); IMM GRAN% 0.9 % (0.0-0.5); LYMPH# 1.22 X1000 (1.2-3.4); MANUAL DIFF NEEDED? YES; MCH 27.7 PG (27-31); MCHC 32.1 g/dL (33-37); MCV 86.3 FL (81-99); MONO# 1.21 X1000 (0.11-0.59); MPV 9.9 FL (7.4-10.4); PLT 274 X1000 (130-400); RBC 2.56 XMIL (4.2-5.4)
[2017-05-06 07:31] LABS: BANDS 6 % (0-1); LYMPHS 4 % (21-51); MONO 6 % (1-9)
[2017-05-06] MEDS: ASPIRIN EC PO SCH (09:01)
[2017-05-06] MEDS: TAPAZOLE PO SCH ×3 (09:01→17:50)
[2017-05-06] MEDS: TOPROL XL PO SCH (09:02)
[2017-05-06] MEDS: MEDROL PO SCH ×2 (09:02→12:01)
[2017-05-06] MEDS: PRINIVIL PO SCH (09:02)
[2017-05-06] MEDS: FERROUS SULFATE PO SCH (09:02)
[2017-05-06] MEDS: TESSALON PO SCH ×3 (09:02→17:50)
[2017-05-06] MEDS: LOVENOX SUBQ SCH (09:02)
[2017-05-06] MEDS: NORCO-10 PO PRN ×2 (10:26→20:55)
[2017-05-06] MEDS: SODIUM CHLORIDE 0.9% INJ SCH (17:51)
[2017-05-06] MEDS: PROTONIX IV SCH (17:51)
--- NOTE | 2017-05-06 20:27 | PROGRESS NOTE ---
DATE: 05/06/2017 SUBJECTIVE: Ms. Esme Bills is a 61-year-old female. She is in no acute distress. She does complain of some lower back pain that she states has been going on for about 2 days but no other complaints. OBJECTIVE: Vital Signs: Temperature 98.1 degrees, heart rate 98, respiratory 20, blood pressure 152/77, O2 saturation 99% on room air. General: Ms. Bills is a 61-year-old female no acute distress. Able to answer questions appropriately. Cardiovascular: S1, S2. Regular rate and rhythm. No rubs, gallops, murmurs. Pulmonary: Clear to auscultate. Bilateral breath sounds. No accessory muscle use, work of breathing noted. GI: Soft, nontender, nondistended. Positive bowel sounds x4. Extremities: No edema noted. +2 dorsalis and radial pulses. LABORATORY DATA: White blood cells 24,000 hemoglobin 7, hematocrit 22, platelet count 274,000. Sodium 139, potassium 4.2, BUN 11, creatinine 0.9, glucose 236, lactate 2.3. IMAGING: Chest x-ray on 05/05/2017. Right upper lobe opacity is essentially stable. Trace effusions that are stable, no new consolidations. ASSESSMENT AND PLAN: 1. Right-sided pneumonia currently on vancomycin and cefepime. Appears to be stable on chest x- ray. 2. Leukocytosis. She is on oral steroid therapy. She had a high white blood cell count of 24,000. Her lactate is elevated at 2.3. Will continue with IV fluid hydration at normal saline 75 mL an hour. Continue vancomycin, cefepime. Her last blood cultures on 05/02/2017 were negative. Will repeat blood cultures and urinalysis to evaluate any other sources of infection. 3. Diabetes mellitus type 2. Continue with pattern blood glucoses and sliding scale insulin. 4. Hypertension. Continue lisinopril, metoprolol. 5. Iron-deficiency anemia. Continue with iron supplementation. 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 7. Deep venous thrombosis prophylaxis. Lovenox. 8. Disposition. Continue with IV antibiotics. Will need several more days and will need to follow up with causes for elevated white count. Dictated by MARIA T Caraballo for Azam Gomez MD cc: MARIA T Caraballo MD
[2017-05-06] MEDS: NEURONTIN PO SCH (20:54)
[2017-05-06] MEDS: VANCOMYCIN 1.5 GM in NS 250 ML IV SCH (21:29)
[2017-05-07] MEDS: MAXIPIME 2 GM/NS 2 GM/100 ML IVPB IV SCH ×2 (02:33→15:01)
[2017-05-07] MEDS: DUONEB (A & A) INH SCH ×6 (03:15→23:17)
[2017-05-07] MEDS: HUMALOG SUBQ SCH ×4 (06:01→20:41)
[2017-05-07] MEDS: NS 1,000 ML IV SCH ×3 (06:13→18:42)
[2017-05-07 06:55] LABS: BASO% 0.2 % (0.0-0.8); EOS# 0.04 X1000 (0.0-0.7); EOS% 0.2 % (0.0-10.0); HEMATOCRIT 23.4 % (37.0-47.0); HEMOGLOBIN 7.5 g/dL (12.0-16.0); IMM GRAN# 0.38 X1000 (0.0-0.04); IMM GRAN% 1.8 % (0.0-0.5); LYMPH# 2.77 X1000 (1.2-3.4); LYMPH% 13.2 % (20.5-51.1); MANUAL DIFF NEEDED? NO; MCHC 32.1 g/dL (33-37); MCV 87.3 FL (81-99); MONO# 0.94 X1000 (0.11-0.59); MONO% 4.5 % (1.7-9.3); MPV 8.9 FL (7.4-10.4); NEUT% 80.1 % (42.2-75.2); PLT 255 X1000 (130-400); RBC 2.68 XMIL (4.2-5.4)
[2017-05-07 06:56] LABS: AGAP 13; ALBUMIN 3.2 g/dL (3.5-5.0); ALKALINE PHOSPHATASE 117 U/L (32-104); BUN 11 mg/dL (8-22); CALCIUM 8.6 mg/dL (8.8-10.2); CHLORIDE 105 mmol/L (98-107); COSMO 284; GOT 27 U/L (10-30); GPT 17 U/L (10-36); MAGNESIUM 1.7 mg/dL (1.5-2.7); POTASSIUM 4.1 mmol/L (3.5-5.1); SODIUM 142 mmol/L (136-145); TCO2 24 mmol/L (25-35); TOTAL BILIRUBIN 0.17 mg/dL (0.20-1.00); TOTAL PROTEIN 7.1 g/dL (6.3-8.3)
[2017-05-07] MEDS: TYLENOL PO PRN ×2 (08:44→20:40)
[2017-05-07] MEDS: ASPIRIN EC PO SCH (08:44)
[2017-05-07] MEDS: MUCINEX PO SCH ×2 (08:45→20:40)
[2017-05-07] MEDS: TESSALON PO SCH ×3 (08:45→20:40)
[2017-05-07] MEDS: FERROUS SULFATE PO SCH (08:45)
[2017-05-07] MEDS: PRINIVIL PO SCH (08:45)
[2017-05-07] MEDS: TOPROL XL PO SCH (08:45)
[2017-05-07] MEDS: LOVENOX SUBQ SCH (08:46)
[2017-05-07] MEDS: TAPAZOLE PO SCH ×3 (08:46→20:40)
[2017-05-07] MEDS: NORCO-10 PO PRN ×3 (11:35→22:27)
--- NOTE | 2017-05-07 12:25 | PROGRESS NOTE ---
DATE: 05/07/2017 SUBJECTIVE: Patient reports that she not feeling good. Patient has a temperature 102 degrees today and breathing a little bit faster. OBJECTIVE: Vital Signs: Temperature 102.2 degrees, heart rate 101, respiratory rate 18, blood pressure 152/45, O2 saturation 94% 2 L nasal cannula. General: This is a 61-year-old female lying in bed, in moderate distress because of mild difficulty in breathing. HEENT: Head is normocephalic, atraumatic. Anicteric sclerae and pale conjunctivae. Mucous membranes moist. Neck: Supple. No JVD. No carotid bruits. No lymphadenopathy. No thyromegaly. Cardiovascular: S1 and S2 heard. No murmurs, gallops, or rubs. Regular rate and rhythm. Respiratory: Coarse breath sounds in both bases. Patient is not using any accessory muscles or work of breathing. Abdomen: Soft, nontender to palpation. Bowel sounds present. No organomegaly. Extremities: No clubbing, cyanosis, or edema. Peripheral pulses present in both legs. Neurological: Patient moves 4 extremities. Awake. Alert. LABORATORY DATA: White cell count is 20.82, hemoglobin 7.5, hematocrit 23.4, platelets 255,000 with normal BMP. ASSESSMENT AND PLAN: 1. Right-sided pneumonia. Currently on vancomycin and Cefepime, but unfortunately this patient is still spiking fever so we are going to do a CT of the thorax with and without contrast and will call Infectious Disease doctor to help us manage this patient. 2. Leukocytosis, probably related to infection, but also because this patient was on steroids which were stopped yesterday. At this time, we are going to continue with the same management. 3. Diabetes mellitus type 2. Patient on sliding scale insulin. 4. Hypertension. The blood pressure is definitely under control. We will continue with the same management. 5. Iron deficiency anemia. Patient is on iron supplementation. 6. Disuse myopathy. Patient is working with physical therapy. cc: Azam Gomez MD
--- NOTE | 2017-05-07 14:29 | Diag Imaging Result Doc PS360 ---
EXAM: THORAX/ABDOMEN/PELVIS - 05/07/2017 HISTORY: worsening pna, abdominal pain TECHNIQUE: With oral and intravenous contrast. Dose reduction protocol. COMPARISON: CT thorax of 04/21/2007. CT abdomen and pelvis of 04/16/2007. FINDINGS: There is a medium right pleural effusion which has decreased mildly. There is apparently a small amount of loculated pleural fluid fluid again seen along the superior lateral margin of the right thorax. There is a small left pleural effusion which has increased. There is compressive atelectasis adjacent to the bilateral pleural effusions, most prominent at the bilateral lower lobes. There is no other acute consolidation identified. There are multiple small bilateral pulmonary nodular opacities. Some of these of increase in size, and these appear to have increased mildly in number compared to the previous exam. These are nonspecific in etiology, although considerations include atypical inflammatory lesions breast metastatic disease. These do not appear cavitary. There are nonspecific small mediastinal lymph nodes similar to the previous exam. There is possible thrombus in the right internal jugular vein visible on the superiormost images of the exam. There are no acute abnormalities of the liver, spleen, adrenal glands, or pancreas identified. There are no calcified gallstones or pericholecystic inflammation identified. There is a large cyst at the lower right kidney which is stable. There is no solid appearing renal mass or hydronephrosis identified. There is retrocaval adenopathy at the mid abdomen which is increased mildly. This adenopathy measures approximately 4.5 x 2.2 cm,, compared with 4.5 x 2 cm on the previous exam. There are some low-density areas within the adenopathy was likely related to necrosis. There is a 1.7 x 1.2 cm left external iliac lymph node which is increased in size from 1.4 x 0.9 cm on the previous exam. There is no evidence of bowel obstruction. There is a large amount retained fecal debris in the colon proximal to the splenic flexure suggesting constipation. There is no substantial bowel wall thickening identified. There is no free air or abscess identified. There is a small amount of free fluid in the posterior pelvis. There is been previous hysterectomy. IMPRESSION: Medium right pleural effusion which is decreased mildly. Small left pleural effusion which has increased. Compressive atelectasis adjacent to the bilateral pleural effusions, some increase in atelectasis at the posterior left base. Multiple small pulmonary nodular opacities which appear overall increased in size and number. Considerations include atypical inflammatory lesions and metastatic disease. Possible thrombus in the visualized distal right internal jugular vein Retrocaval adenopathy which has increased mildly. Mild left external iliac adenopathy. Evidence of constipation. Electronically signed by Parmjit Guerrero 05/07/2017 2:27 PM
[2017-05-07] MEDS ORDERED: MAXIPIME 2 GM/NS 2 GM/100 ML IVPB IV SCH (16:00)
[2017-05-07] MEDS ORDERED: VANCOMYCIN IV PER PHARMACY MISC SCH (16:00)
[2017-05-07] MEDS: PROTONIX IV SCH (17:40)
[2017-05-07] MEDS: MERREM 1 GM in NS 50 ML IV SCH (17:40)
[2017-05-07] MEDS: SODIUM CHLORIDE 0.9% INJ SCH (17:40)
[2017-05-07] MEDS: NEURONTIN PO SCH (20:40)
[2017-05-07] MEDS: VANCOMYCIN 1.5 GM in NS 250 ML IV SCH (22:29)
[2017-05-08] MEDS: MERREM 1 GM in NS 50 ML IV SCH ×3 (01:01→17:58)
[2017-05-08] MEDS: DUONEB (A & A) INH SCH ×6 (03:22→23:06)
[2017-05-08] MEDS: NORCO-10 PO PRN ×3 (03:25→21:16)
[2017-05-08] MEDS: TYLENOL PO PRN ×5 (03:26→23:03)
[2017-05-08] MEDS: NS 1,000 ML IV SCH ×3 (04:05→18:08)
[2017-05-08] MEDS: HUMALOG SUBQ SCH ×4 (06:08→21:17)
[2017-05-08 06:10] LABS: BASO% 0.1 % (0.0-0.8); EOS# 0.09 X1000 (0.0-0.7); EOS% 0.3 % (0.0-10.0); HEMATOCRIT 23.4 % (37.0-47.0); HEMOGLOBIN 7.6 g/dL (12.0-16.0); IMM GRAN# 0.16 X1000 (0.0-0.04); IMM GRAN% 0.6 % (0.0-0.5); LYMPH% 5.7 % (20.5-51.1); MANUAL DIFF NEEDED? YES; MCH 27.9 PG (27-31); MCHC 32.5 g/dL (33-37); MONO# 1.61 X1000 (0.11-0.59); MONO% 5.8 % (1.7-9.3); MPV 9.4 FL (7.4-10.4); NEUT% 87.5 % (42.2-75.2); PLT 221 X1000 (130-400); RBC 2.72 XMIL (4.2-5.4)
[2017-05-08 06:14] LABS: AGAP 16; ALBUMIN 2.8 g/dL (3.5-5.0); ALKALINE PHOSPHATASE 122 U/L (32-104); BUN 11 mg/dL (8-22); CALCIUM 8.5 mg/dL (8.8-10.2); CHLORIDE 101 mmol/L (98-107); COSMO 275; GOT 21 U/L (10-30); GPT 16 U/L (10-36); MAGNESIUM 1.4 mg/dL (1.5-2.7); POTASSIUM 3.7 mmol/L (3.5-5.1); SODIUM 136 mmol/L (136-145); TCO2 19 mmol/L (25-35); TOTAL BILIRUBIN 0.52 mg/dL (0.20-1.00); TOTAL PROTEIN 6.3 g/dL (6.3-8.3)
[2017-05-08 07:22] LABS: EOS 2 % (1-10); LYMPHS 2 % (21-51); MONO 2 % (1-9)
[2017-05-08] MEDS: MUCINEX PO SCH ×2 (08:14→21:17)
[2017-05-08] MEDS: TESSALON PO SCH ×3 (08:15→17:56)
[2017-05-08] MEDS: LOVENOX SUBQ SCH (08:15)
[2017-05-08] MEDS: TOPROL XL PO SCH (08:16)
[2017-05-08] MEDS: ASPIRIN EC PO SCH (08:16)
[2017-05-08] MEDS: PRINIVIL PO SCH (08:16)
[2017-05-08] MEDS: FERROUS SULFATE PO SCH (08:16)
[2017-05-08] MEDS: TAPAZOLE PO SCH ×3 (08:17→17:56)
--- NOTE | 2017-05-08 09:55 | CONSULTATION ---
DATE OF CONSULTATION: 05/08/2017 CONCLUSION: This middle-aged female is admitted to the hospital with pneumonia. She had previously been treated for it but it has progressed. RECOMMENDATIONS: I would suggest changing the patient to a combination of meropenem and vancomycin. DISCUSSION: The patient is unable provide a history. No family member is present. The history was taken from a review of the data in the computer. The patient has a prior history of ovarian cancer and has undergone chemotherapy for it. She also has had a hysterectomy. She has been since the end of March complaining of fever, cough, and weakness. She was hospitalized and then discharged and readmitted today because of progression of her pneumonia on chest x-ray. The patient's CBC shows a white count of 27,970, hemoglobin 7.6, and platelet count 221,000. Creatinine is 1.1. GFR is greater than 60. Blood cultures are negative. CT scan of the chest shows increase in the size of the patient's pulmonary opacities. Also there is an increase in amount of the opacities. In addition, there is abdominal adenopathy as well. PAST MEDICAL HISTORY: Positive for ovarian cancer for which she has received chemotherapy. She also has asthma, diabetes mellitus, hyperlipidemia, hypertension, and hypothyroidism. PAST SURGICAL HISTORY: Positive for and hysterectomy. SOCIAL HISTORY: The patient does not drink alcoholic beverages, smoke cigarettes, or engage in illicit drug use. ALLERGIES: The patient's allergies in include codeine and penicillin. MEDICATIONS: Patient's home medications include metoprolol, methimazole, metformin, Prinivil, [place], gabapentin, clindamycin, Omnicef, and enteric-coated aspirin. PHYSICAL EXAMINATION: Vital Signs: Temperature is 98.8 degrees, pulse 108, respirations 18, blood pressure 134/74. General: This is a chronically ill-appearing, middle-aged female. She is in no acute distress. Head, eyes, ears, nose, and throat: She is able to see near objects. She can hear my spoken words. No drainage noted from the nose or ears. Neck: No meningismus. Thorax: No increase in AP diameter. Lungs: Clear to auscultation. Cardiovascular: Regular heart rate. I did not hear a murmur. Abdomen: Soft and nontender. Neurologic: She is talks in a very low voice and it is very hard for me to understand what she is saying. In addition, she does not answer questions very readily. Integument: No rash noted. Thank you for the consult. cc: Villa Jaimes MD
--- NOTE | 2017-05-08 13:03 | PROGRESS NOTE ---
DATE: 05/08/2017 SUBJECTIVE: Patient reports feeling better today. As per nursing staff, they reported the patient is still spiking fever and this morning was 102.5. OBJECTIVE: Vital Signs: Temperature 102.1 degrees, heart rate 118, respiratory rate 22, blood pressure 134/64, O2 saturation 100% 2 L nasal cannula. General: This is a 61-year-old female lying in bed, in no acute distress. HEENT: Head is normocephalic, atraumatic. Anicteric sclerae and pale conjunctivae. Mucous membranes moist. Neck: Supple. No JVD is noted. No carotid bruits. No lymphadenopathy. No thyromegaly. Cardiovascular: S1, S2 heard. No murmurs, gallops, or rubs. Regular rate and rhythm. Respiratory: Coarse breath sounds are still present in both bases. Patient is not using any accessory muscles or having work of breathing. Abdomen: Soft, nontender to palpation. Bowel sounds present. No organomegaly. Extremities: No clubbing, cyanosis, or edema. Peripheral pulses present in both legs. Neurological: Patient moves 4 extremities. Awake. LABORATORY DATA: White cell count 27.97, hemoglobin 7.6, hematocrit 23.4, platelets 221,000. BMP unremarkable, except creatinine 1.1. ASSESSMENT AND PLAN: 1. Right-sided pneumonia. The patient started spiking fever yesterday despite using broad spectrum antibiotics. In this case, vancomycin and cefepime. Dr. Jaimes from Infectious Disease has been consulted, and he recommends changing meropenem and vancomycin. The patient is still spiking fever yesterday and today, so we are going to order another set of blood cultures. 2. Leukocytosis, probably related to infection. Initially we were thinking about this as a hyper- reaction to steroids, but considering that this patient has fever, I think it is more related to infection. We will continue checking complete blood count daily. 3. Diabetes mellitus type 2. Patient is on sliding scale insulin. Blood sugars are well controlled. 4. Hypertension. Blood pressure is definitely much better controlled. We will continue with the same management. 5. Iron deficiency anemia. Patient on iron supplementation. 6. Disuse myopathy. Patient working with Physical Therapy. cc: Azam Gomez MD
[2017-05-08] MEDS: SODIUM CHLORIDE 0.9% INJ SCH (17:56)
[2017-05-08] MEDS: PROTONIX IV SCH (17:56)
[2017-05-08] MEDS: NEURONTIN PO SCH (21:17)
[2017-05-08] MEDS: VANCOMYCIN 1.5 GM in NS 250 ML IV SCH (21:41)
[2017-05-09] MEDS: MERREM 1 GM in NS 50 ML IV SCH ×3 (01:30→16:12)
[2017-05-09] MEDS: NORCO-10 PO PRN ×5 (01:30→23:58)
[2017-05-09] MEDS: DUONEB (A & A) INH SCH ×6 (03:28→22:46)
[2017-05-09] MEDS: HUMALOG SUBQ SCH ×4 (06:01→20:41)
[2017-05-09 06:13] LABS: BASO% 0.1 % (0.0-0.8); EOS# 0.22 X1000 (0.0-0.7); EOS% 0.7 % (0.0-10.0); HEMATOCRIT 21.8 % (37.0-47.0); HEMOGLOBIN 7.1 g/dL (12.0-16.0); IMM GRAN% 0.6 % (0.0-0.5); LYMPH% 5.3 % (20.5-51.1); MANUAL DIFF NEEDED? YES; MCH 27.8 PG (27-31); MCHC 32.6 g/dL (33-37); MCV 85.5 FL (81-99); MONO# 1.72 X1000 (0.11-0.59); MONO% 5.3 % (1.7-9.3); MPV 9.5 FL (7.4-10.4); PLT 218 X1000 (130-400); RBC 2.55 XMIL (4.2-5.4)
[2017-05-09 06:24] LABS: AGAP 14; ALBUMIN 2.4 g/dL (3.5-5.0); ALKALINE PHOSPHATASE 134 U/L (32-104); BUN 11 mg/dL (8-22); CALCIUM 8.2 mg/dL (8.8-10.2); CHLORIDE 103 mmol/L (98-107); COSMO 274; GOT 20 U/L (10-30); GPT 14 U/L (10-36); MAGNESIUM 1.6 mg/dL (1.5-2.7); POTASSIUM 3.7 mmol/L (3.5-5.1); SODIUM 136 mmol/L (136-145); TCO2 19 mmol/L (25-35); TOTAL BILIRUBIN 0.34 mg/dL (0.20-1.00); TOTAL PROTEIN 6.1 g/dL (6.3-8.3)
[2017-05-09 07:23] LABS: BANDS 19 % (0-1); LYMPHS 3 % (21-51); MONO 3 % (1-9)
[2017-05-09 07:24] LABS: HYPOCHROM 1+
[2017-05-09] MEDS: TESSALON PO SCH ×3 (08:22→20:31)
[2017-05-09] MEDS: FERROUS SULFATE PO SCH (08:22)
[2017-05-09] MEDS: TOPROL XL PO SCH (08:23)
[2017-05-09] MEDS: MUCINEX PO SCH ×2 (08:23→20:31)
[2017-05-09] MEDS: TAPAZOLE PO SCH ×3 (08:23→20:31)
[2017-05-09] MEDS: PRINIVIL PO SCH (08:23)
[2017-05-09] MEDS: ASPIRIN EC PO SCH (08:23)
[2017-05-09] MEDS: LOVENOX SUBQ SCH (08:24)
[2017-05-09] MEDS: LEVAQUIN PO SCH (08:32)
--- NOTE | 2017-05-09 10:09 | PROGRESS NOTE ---
DATE: 05/09/2017 ADDENDUM: PRESENT ILLNESS: Patient has a progressive pulmonary nodular opacities. She has not responded to antibiotics. MEDICATIONS: Patient currently is on vancomycin and meropenem. PHYSICAL EXAMINATION: Vital Signs: Temperature is 100 degrees, pulse 116, respirations 20, blood pressure 161/69. Generally: Today, the patient looks better. She is more awake and is having less pain. Lungs: Clear to auscultation. Cardiovascular: Regular heart rate. Abdomen: Soft and nontender. LAB AND X-RAY: CBC today shows a white count of 32,190, hemoglobin 7.1, and platelet count 218,000. Creatinine is 1. GFR is greater than 60. Blood cultures are negative. Chest x-ray shows increasing size and amount of the nodular infiltrates in the patient's lungs. ASSESSMENT AND PLAN: Patient has a pulmonary process that is progressive despite antibiotic therapy. I would like to go ahead and consult pulmonary and possibly they could do a bronchoscopy and get some tissue so we can make a diagnosis. For now, I am going to continue with the current antibiotics and add Levaquin. Elevated WBC nay in part due to steroid use. COMORBIDITIES: She has had ovarian cancer and has had chemotherapy for it. Possibly, these lesions in the lungs may represent fat. Also, she has diabetes mellitus. cc: Villa Jaimes MD [facility]
[2017-05-09] MEDS: NS 1,000 ML IV SCH ×2 (10:49)
[2017-05-09] MEDS: MYCAMINE 100 MG in NS 100 ML IV SCH (13:07)
--- NOTE | 2017-05-09 17:17 | CONSULTATION ---
DATE OF CONSULTATION: 05/09/2017 CHIEF COMPLAINT: Abnormal right pleural space. HISTORY OF PRESENT ILLNESS: This is a 61-year-old female with a history of ovarian cancer who has undergone chemotherapy. She has been told by her doctor that she is tumor free. She, however, was admitted last week with shortness of breath, fever, and cough consistent with pneumonia. Since she is admitted she is breathing more comfortably. She has undergone a thoracentesis. The cell block did not show any evidence of malignancy. PAST MEDICAL HISTORY: Her other medical problems include diabetes, asthma, hyperlipidemia, hypertension, hypothyroidism. PAST SURGICAL HISTORY: She apparently has had previous heart stents. She has had a robotic total hysterectomy in February. She has had a . MEDICATIONS: At home include metoprolol, methimazole, metformin, Prinivil, Melcroft, gabapentin, ferrous sulfate. ALLERGIES: Penicillin and codeine. SOCIAL HISTORY: She denies tobacco, alcohol, and illicit drug use. FAMILY HISTORY: Not known. REVIEW OF SYSTEMS: As noted above. PHYSICAL EXAMINATION: Vital Signs: Temperature is 98.9 degrees, heart rate 106, respiratory rate 22, blood pressure 154/68. Nasal oxygen is present. Neck: No cervical adenopathy. Lungs: Bilateral breath sounds. She has good breath sounds on the right. Heart: Regular rate and rhythm. Abdomen: Soft, nontender. No peripheral edema. She is awake and alert. LABORATORY: White count is 32,200, hemoglobin 7.1, hematocrit 21.8. ASSESSMENT: 1. History of ovarian cancer. 2. Abnormal right pleural space. 3. Right-sided pneumonia. PLAN: The plan will be to transfuse her. We will plan a right thoracoscopy with biopsy. I have discussed the procedure, the benefits and risks, the possible need for ventilation, and certainly the need for chest tube postop. She understands and she agrees to proceed. cc: Salvatore Hendrickson MD
[2017-05-09] MEDS: TYLENOL PO PRN (17:48)
[2017-05-09] MEDS: PROTONIX IV SCH ×2 (18:30→19:26)
[2017-05-09] MEDS: NEURONTIN PO SCH (20:31)
[2017-05-09 21:46] LABS: URINE CULTURE NEEDED? NO; URINE SOURCE CLEAN CATCH
[2017-05-09 22:08] LABS: BILIRUBIN URINE NEGATIVE (NEGATIVE); BLOOD URINE TRACE (NEGATIVE); COLOR YELLOW; GLUCOSE URINE NEGATIVE (NEGATIVE); LEUKOCYTES URINE NEGATIVE (NEGATIVE); NITRITE URINE NEGATIVE (NEGATIVE); PROTEIN URINE 50 mg/dL (NEGATIVE); SP GRAVITY URINE 1.017; TURBIDITY URINE HAZY (CLEAR); UROBILINOGEN URINE NORMAL (NORMAL)
[2017-05-09 22:18] LABS: URINE MICRO REVIEW NEEDED? YES
[2017-05-09 22:20] LABS: UR EPITHELIAL CELLS <10 /HPF (<10); URINE BACTERIA NEGATIVE /HPF; URINE RBC <10 /HPF (<10); URINE WBC <10 /HPF (<10)
[2017-05-09 23:50] LABS: URINE CASTS NONE SEEN; URINE CRYSTALS NONE SEEN; URINE SMALL ROUND CELLS NONE SEEN
[2017-05-10] MEDS ORDERED: MUCOMYST 20% INH ONE (00:10)
[2017-05-10] MEDS ORDERED: TUSSIONEX LIQUID PO ONE (00:10)
[2017-05-10] MEDS: MERREM 1 GM in NS 50 ML IV SCH ×3 (01:44→21:20)
[2017-05-10] MEDS: VANCOMYCIN 1.5 GM in NS 250 ML IV SCH (02:33)
[2017-05-10] MEDS: DUONEB (A & A) INH SCH ×6 (03:24→23:05)
[2017-05-10] MEDS: HUMALOG SUBQ SCH ×3 (06:03→21:21)
--- NOTE | 2017-05-10 06:27 | PROGRESS NOTE ---
DATE: 05/09/2017 ADDENDUM: The patient's white count has increased quite a bit today. She has not been put on steroids which I think I earlier said she was. I plan to get 2 blood cultures now. She is on broad-spectrum antibiotic therapy and if her high white count is due to an infection from her PICC then in this situation it may be due to a fungus. Therefore, I am going to start the patient on micafungin. Also, the fact that her pulmonary disease is progressing, this too could be causing a continued rise in the white count. cc: Villa Jaimes MD [facility]
[2017-05-10 06:34] LABS: AGAP 15; ALBUMIN 2.7 g/dL (3.5-5.0); ALKALINE PHOSPHATASE 147 U/L (32-104); BUN 6 mg/dL (8-22); CALCIUM 8.4 mg/dL (8.8-10.2); CHLORIDE 103 mmol/L (98-107); COSMO 277; GOT 16 U/L (10-30); GPT 11 U/L (10-36); MAGNESIUM 1.6 mg/dL (1.5-2.7); POTASSIUM 3.5 mmol/L (3.5-5.1); SODIUM 138 mmol/L (136-145); TCO2 20 mmol/L (25-35); TOTAL BILIRUBIN 0.63 mg/dL (0.20-1.00); TOTAL PROTEIN 6.5 g/dL (6.3-8.3)
[2017-05-10 06:48] LABS: BASO% 0.1 % (0.0-0.8); HEMATOCRIT 28.4 % (37.0-47.0); HEMOGLOBIN 9.7 g/dL (12.0-16.0); LYMPH# 1.84 X1000 (1.2-3.4); LYMPH% 6.7 % (20.5-51.1); MANUAL DIFF NEEDED? YES; MCH 28.7 PG (27-31); MCHC 34.2 g/dL (33-37); MONO# 1.87 X1000 (0.11-0.59); MONO% 6.8 % (1.7-9.3); MPV 9.8 FL (7.4-10.4); PLT 182 X1000 (130-400); RBC 3.38 XMIL (4.2-5.4)
[2017-05-10 07:18] LABS: BANDS 4 % (0-1); EOS 2 % (1-10); HYPOCHROM 1+; LYMPHS 10 % (21-51); MONO 6 % (1-9)
--- NOTE | 2017-05-10 11:13 | PROGRESS NOTE ---
DATE: 05/10/2017 PRESENT ILLNESS: The patient has progressive pulmonary infiltrates. She is coughing quite a bit. She also has a pleural effusion. MEDICATIONS: The patient currently is receiving vancomycin, meropenem, Levaquin and micafungin. PHYSICAL EXAMINATION: Vital Signs: Temperature is 99.5 degrees, pulse 111, respirations 18, blood pressure 166/76. General: This is an ill-appearing middle-aged female. She is coughing quite a bit today. Lungs: There were bilateral rhonchi and as mentioned above, the patient is coughing quite a bit today. Cardiovascular: Regular heart rate. Abdomen: Soft and nontender. Thorax: No increased AP diameter of the chest. LAB AND X-RAY: There is no new x-ray. The CBC today shows the white count now is down to 27,500, hemoglobin 9.7, and platelet count 182,000. Creatinine is 0.8. GFR is greater than 60. Liver function studies are normal except for an alkaline phosphatase of 147. Urinalysis shows no white cells or bacteria. Blood cultures are pending. ASSESSMENT AND PLAN: Patient has progressive pulmonary nodular opacities and a pleural effusion. She also has leukocytosis. Today the patient is going to undergo thoracoscopy performed by Dr. Salvatore Hendrickson and hopefully from this procedure will be able to come up with a diagnosis of the patient's progressive pulmonary nodular lesions and the pleural effusion. I am going to keep going with the current antibiotics because the white count did decrease from what it was yesterday. COMORBIDITIES: Include ovarian cancer, chemotherapy for ovarian cancer and diabetes mellitus. cc: Villa Jaimes MD
[2017-05-10] MEDS: MYCAMINE 100 MG in NS 100 ML IV SCH (12:41)
[2017-05-10] MEDS ORDERED: QUELICIN (DOSE) ONE (14:38)
[2017-05-10] MEDS ORDERED: SODIUM CHLORIDE 0.9% 10 ML ONE (14:39)
[2017-05-10] MEDS ORDERED: NORCURON ONE (14:39)
[2017-05-10] MEDS ORDERED: VERSED ONE (14:40)
[2017-05-10] MEDS ORDERED: FENTANYL ONE (14:41)
[2017-05-10] MEDS ORDERED: DIPRIVAN 1% ONE (14:42)
[2017-05-10] MEDS ORDERED: MARCAINE 0.25% PF/EPI 1:200,000 ONE (14:50)
[2017-05-10] MEDS ORDERED: LR 1,000 ML ONE (14:50)
[2017-05-10] MEDS ORDERED: ROBINUL ONE (15:40)
[2017-05-10] MEDS ORDERED: NEOSTIGMINE ONE (15:40)
[2017-05-10] MEDS ORDERED: XYLOCAINE 2% JELLY ONE (15:47)
[2017-05-10] MEDS ORDERED: LABETALOL ONE (15:50)
[2017-05-10] MEDS ORDERED: BUPRENEX IV PRN (15:52)
--- NOTE | 2017-05-10 16:13 | OPERATIVE NOTE ---
PROCEDURE DATE: 05/10/2017 NAME OF THE PROCEDURE: Right thoracoscopy. SURGEON: Salvatore Hendrickson MD. TECHNICAL CLERK: Betsey RN. PREOPERATIVE DIAGNOSIS: History of ovarian cancer. Recent right upper lobe pneumonia. POSTOPERATIVE DIAGNOSIS: History of ovarian cancer. Recent right upper lobe pneumonia. DESCRIPTION OF PROCEDURE: Satisfactory general endotracheal anesthesia was achieved. The single- lumen tube was placed. They were not able to pass a double lumen tube into the patient's mouth. After satisfactory endotracheal intubation we placed the patient in decubitus position, the right side up. The right side of the chest was prepped and draped in a sterile fashion. We anesthetized the skin with 0.25 Marcaine with epinephrine. In the anterior axillary line, incised the skin, and carried our incision above the rib into the pleural space. We introduced a 5 trocar there. We introduced the 5 cm flexible tip scope. We entered the pleural space but we could not visualize anything adequately due to the inability to collapse the lung due to the fluid in the pleural space. We attempted another spot in the posterior axillary line below the tip of the scapula. Did the same process again into the pleural space but we could not adequately visualize the pleura to do a biopsy safely. Mostly all I could see was exudate and fluid. No obvious metastases were seen. I did not feel that it is safe to take a biopsy because of poor visualization so we simply aborted. Placed a 28 trocar chest tube in the anterior axillary line trocar site, secured it with a 0 silk. We closed the skin of the posterior Thoracoport site with a 4-0 Polysorb subcuticular stitch. Sterile dressings were applied. The chest tube was attached to the Pleur-evac. She tolerated the procedure satisfactorily and sent to the recovery room in satisfactory condition. cc: Salvatore Hendrickson MD
[2017-05-10] MEDS ORDERED: MORPHINE ONE ×2 (16:47→16:58)
--- NOTE | 2017-05-10 17:33 | Diag Imaging Result Doc PS360 ---
CHEST-PORTABLE - 05/10/2017 INDICATION: chest tube placement TECHNIQUE: COMPARISON: 05/05/2017 FINDINGS: There is a right apical chest tube in good position. There is a small right pleural effusion similar to prior. There is a left PICC line with the tip in the SVC in good position. Lung volumes are much lower with some central atelectasis and platelike atelectasis at the right hilum. There is also cardiomegaly and pulmonary vascular congestion. There is some minimal infiltrate at left base. IMPRESSION: See findings. Electronically signed by Cuba Rajput 05/10/2017 5:31 PM
[2017-05-10] MEDS: LASIX IV SCH (18:00)
[2017-05-10] MEDS: NS 500 ML IV SCH ×2 (18:30→18:31)
[2017-05-10] MEDS: ASPIRIN EC PO SCH (18:31)
[2017-05-10] MEDS: TESSALON PO SCH ×2 (18:32→18:33)
[2017-05-10] MEDS: TAPAZOLE PO SCH ×2 (18:33→18:34)
[2017-05-10] MEDS: FERROUS SULFATE PO SCH (18:34)
[2017-05-10] MEDS: PRINIVIL PO SCH (18:34)
[2017-05-10] MEDS: MUCINEX PO SCH ×2 (18:35→21:20)
[2017-05-10] MEDS: LEVAQUIN PO SCH (18:36)
[2017-05-10] MEDS: TOPROL XL PO SCH (18:36)
[2017-05-10] MEDS: NORCO-10 PO PRN (19:57)
[2017-05-10] MEDS: PERIDEX MT SCH (21:20)
[2017-05-10] MEDS: NEURONTIN PO SCH (21:20)
[2017-05-11] MEDS: VANCOMYCIN 1.5 GM in NS 250 ML IV SCH (02:23)
[2017-05-11] MEDS: DUONEB (A & A) INH SCH ×4 (03:17→20:02)
[2017-05-11] MEDS: MERREM 1 GM in NS 50 ML IV SCH ×3 (03:50→21:17)
[2017-05-11] MEDS: PROTONIX IV SCH ×2 (03:50→21:17)
[2017-05-11] MEDS: HUMALOG SUBQ SCH ×4 (06:10→21:19)
[2017-05-11 06:13] LABS: MANUAL DIFF NEEDED? NO
[2017-05-11 06:19] LABS: BASO% 0.2 % (0.0-0.8); EOS# 0.32 X1000 (0.0-0.7); EOS% 1.8 % (0.0-10.0); HEMATOCRIT 26.5 % (37.0-47.0); IMM GRAN# 0.12 X1000 (0.0-0.04); IMM GRAN% 0.7 % (0.0-0.5); LYMPH# 1.99 X1000 (1.2-3.4); LYMPH% 11.1 % (20.5-51.1); MCH 28.8 PG (27-31); MCV 84.7 FL (81-99); MONO# 1.34 X1000 (0.11-0.59); MONO% 7.5 % (1.7-9.3); MPV 9.6 FL (7.4-10.4); NEUT% 78.7 % (42.2-75.2); PLT 164 X1000 (130-400); RBC 3.13 XMIL (4.2-5.4)
[2017-05-11 06:44] LABS: AGAP 13; ALBUMIN 2.5 g/dL (3.5-5.0); ALKALINE PHOSPHATASE 113 U/L (32-104); BUN 6 mg/dL (8-22); CALCIUM 8.4 mg/dL (8.8-10.2); CHLORIDE 104 mmol/L (98-107); COSMO 276; GOT 12 U/L (10-30); GPT 8 U/L (10-36); MAGNESIUM 1.6 mg/dL (1.5-2.7); POTASSIUM 3.7 mmol/L (3.5-5.1); SODIUM 139 mmol/L (136-145); TCO2 22 mmol/L (25-35); TOTAL BILIRUBIN 0.52 mg/dL (0.20-1.00); TOTAL PROTEIN 6.6 g/dL (6.3-8.3)
--- NOTE | 2017-05-11 08:16 | PROGRESS NOTE ---
DATE: 05/11/2017 SUBJECTIVE: Having some pain in her chest tube site but, otherwise, no events. OBJECTIVE: Heart rate has been in the 90s to low 100s. No fevers. Chest tube output has been appropriate, 100 recorded. There is no air leak; it is to -20 suction. Dressings clean, dry, and intact. LABORATORY DATA: White count down to 17, hematocrit 26, creatinine 0.8. ASSESSMENT AND PLAN: A 61-year-old female status post thoracoscopy for the right chest for what is felt to be a malignant effusion related to ovarian cancer. Chest x-ray looks alright. We will water seal the chest tube. She needs aggressive pulmonary toileting and pain control. Will continue to follow along. cc: Vicente Chambers MD
--- NOTE | 2017-05-11 08:46 | Diag Imaging Result Doc PS360 ---
CHEST-1 VIEW - 05/11/2017 INDICATION: chest tube TECHNIQUE: COMPARISON: 05/10/2017 FINDINGS: Stable right chest tube. Stable small lateral right effusion. No pneumothorax. Stable platelike atelectasis or scarring in the right midlung. Stable cardiomegaly and pulmonary vascular congestion. Stable mild retrocardiac consolidation/atelectasis. Stable left PICC line. IMPRESSION: No change from prior. Electronically signed by Cuba Rajput 05/11/2017 8:44 AM
[2017-05-11] MEDS: MUCINEX PO SCH ×2 (10:00→21:17)
[2017-05-11] MEDS: ASPIRIN EC PO SCH (10:01)
[2017-05-11] MEDS: LEVAQUIN PO SCH (10:01)
[2017-05-11] MEDS: TOPROL XL PO SCH (10:01)
[2017-05-11] MEDS: TESSALON PO SCH ×3 (10:01→16:25)
[2017-05-11] MEDS: LASIX IV SCH (10:02)
[2017-05-11] MEDS: FERROUS SULFATE PO SCH (10:02)
[2017-05-11] MEDS: PRINIVIL PO SCH (10:03)
[2017-05-11] MEDS: TAPAZOLE PO SCH ×3 (10:03→16:25)
[2017-05-11] MEDS: PERIDEX MT SCH ×2 (10:03→21:17)
[2017-05-11] MEDS: NORCO-10 PO PRN (12:02)
[2017-05-11] MEDS: MYCAMINE 100 MG in NS 100 ML IV SCH (12:58)
[2017-05-11] MEDS: MORPHINE IV PRN ×2 (17:33→21:33)
[2017-05-11 17:57] LABS: SPECIMEN PLEURAL FLUID
[2017-05-11 17:59] LABS: DIFF NEEDED? YES; WBC BF 1199 /cumm
[2017-05-11 18:07] LABS: MONOS 14 %; POLYS 86 %
[2017-05-11 18:15] LABS: TOTAL PROT BODY FLUID 4.3 g/dL
[2017-05-11] MEDS: SODIUM CHLORIDE 0.9% INJ SCH (21:17)
[2017-05-11] MEDS: NEURONTIN PO SCH (21:17)
[2017-05-11] MEDS: NS 500 ML IV SCH (21:19)
[2017-05-12] MEDS: MORPHINE IV PRN ×4 (01:21→11:53)
[2017-05-12] MEDS: VANCOMYCIN 1.5 GM in NS 250 ML IV SCH (01:21)
[2017-05-12] MEDS: NORCO-10 PO PRN ×2 (02:03→20:31)
[2017-05-12] MEDS: MERREM 1 GM in NS 50 ML IV SCH ×3 (02:53→20:30)
[2017-05-12] MEDS: DUONEB (A & A) INH SCH ×7 (03:23→22:47)
[2017-05-12 05:43] LABS: MANUAL DIFF NEEDED? NO
[2017-05-12 05:52] LABS: BASO% 0.2 % (0.0-0.8); EOS# 0.28 X1000 (0.0-0.7); EOS% 1.6 % (0.0-10.0); HEMATOCRIT 28.7 % (37.0-47.0); HEMOGLOBIN 9.6 g/dL (12.0-16.0); IMM GRAN% 0.6 % (0.0-0.5); LYMPH# 2.38 X1000 (1.2-3.4); LYMPH% 13.8 % (20.5-51.1); MCH 28.5 PG (27-31); MCHC 33.4 g/dL (33-37); MCV 85.2 FL (81-99); MONO# 1.14 X1000 (0.11-0.59); MONO% 6.6 % (1.7-9.3); MPV 9.5 FL (7.4-10.4); NEUT% 77.2 % (42.2-75.2); PLT 181 X1000 (130-400); RBC 3.37 XMIL (4.2-5.4)
[2017-05-12] MEDS: HUMALOG SUBQ SCH ×4 (06:15→20:32)
[2017-05-12 06:32] LABS: AGAP 16; ALBUMIN 2.9 g/dL (3.5-5.0); ALKALINE PHOSPHATASE 118 U/L (32-104); BUN 7 mg/dL (8-22); CALCIUM 8.5 mg/dL (8.8-10.2); CHLORIDE 99 mmol/L (98-107); COSMO 281; GOT 18 U/L (10-30); GPT 12 U/L (10-36); MAGNESIUM 1.6 mg/dL (1.5-2.7); POTASSIUM 3.4 mmol/L (3.5-5.1); SODIUM 139 mmol/L (136-145); TCO2 24 mmol/L (25-35); TOTAL PROTEIN 6.8 g/dL (6.3-8.3)
--- NOTE | 2017-05-12 07:31 | Diag Imaging Result Doc PS360 ---
CHEST-PORTABLE - 05/12/2017 INDICATION: chest tube TECHNIQUE: COMPARISON: 05/11/2017 FINDINGS: Stable right chest tube and left PICC line. There is there is slight decrease in the small lateral right pleural effusion. Stable retrocardiac consolidation and small effusion. No pneumothorax. IMPRESSION: Improvement from prior, with decrease in the trace right pleural effusion. Electronically signed by Cuba Rajput 05/12/2017 7:28 AM
[2017-05-12] MEDS: TOPROL XL PO SCH ×2 (09:04→13:21)
[2017-05-12] MEDS: LASIX IV SCH (09:04)
[2017-05-12] MEDS: PRINIVIL PO SCH ×2 (09:05→09:39)
[2017-05-12] MEDS: FERROUS SULFATE PO SCH (09:36)
[2017-05-12] MEDS: MUCINEX PO SCH ×2 (09:37→20:31)
[2017-05-12] MEDS: TAPAZOLE PO SCH ×3 (09:37→17:02)
[2017-05-12] MEDS: PERIDEX MT SCH ×2 (09:37→20:32)
[2017-05-12] MEDS: TESSALON PO SCH ×3 (09:37→17:03)
[2017-05-12] MEDS: LEVAQUIN PO SCH (09:37)
[2017-05-12] MEDS: ASPIRIN EC PO SCH (09:38)
--- NOTE | 2017-05-12 10:01 | PROGRESS NOTE ---
DATE: 05/12/2017 SUBJECTIVE: Sore in the chest tube site, otherwise no issues. OBJECTIVE: No fevers. Heart rate has been in the low 100s. Oxygen saturation 98% on room air. The right chest tube is with minimal serosanguineous output. No air leak as to water seal. Labs reviewed. White count stable at 17, hematocrit is 28. Creatinine 0.9. A chest x-ray shows resolved or much improved effusion with no pneumothorax. ASSESSMENT AND PLAN: A 61-year-old female with effusion in the setting of ovarian cancer, status post thoracoscopic examination the right chest. She tolerated water seal of her tube. We will plan on removing it today. Repeat a chest x-ray afterwards and then further medical management per the hospitalist service. cc: Vicente Chambers MD
[2017-05-12] MEDS: MYCAMINE 100 MG in NS 100 ML IV SCH (11:58)
[2017-05-12] MEDS: NS 500 ML IV SCH (15:27)
--- NOTE | 2017-05-12 16:57 | Diag Imaging Result Doc PS360 ---
CHEST-1 VIEW - 05/12/2017 1455 INDICATION: chest tube removal TECHNIQUE: COMPARISON: 0655 FINDINGS: The right chest tube has been removed. Stable small right effusion and central infiltrate. Stable trace left pleural effusion. Stable mild retrocardiac consolidation/atelectasis. Stable left PICC line. IMPRESSION: Chest tube removed, otherwise no change from prior. Electronically signed by Cuba Rajput 05/12/2017 4:55 PM
[2017-05-12 17:00] LABS: TOTAL PROTEIN 6.8 g/dL (6.3-8.3)
[2017-05-12] MEDS: NEURONTIN PO SCH (20:31)
[2017-05-12] MEDS: PROTONIX IV SCH (20:31)
--- NOTE | 2017-05-13 00:40 | PROGRESS NOTE ---
DATE: 05/12/2017 SUBJECTIVE: The patient has no complaints. She wants to go home. OBJECTIVE: Vital signs: Blood pressure 138/60, heart rate 94, respiratory rate 17, temperature 98.4 degrees, 100% saturation on 2 L. Cardiovascular: Regular rate and rhythm. Pulmonary: Bilateral breath sounds. Clear to auscultation. GI: Soft, nontender, nondistended, bowel sounds are positive. LABORATORY DATA: White count of 17, hemoglobin and hematocrit 9, 28, platelets of 181,000. Chemistries are okay except for creatinine of 3.4. PROBLEM LIST: 1. Pneumonia with pleural effusion. She underwent thoracoscopy but it could not be completed. She did have a chest tube placed which has drained fluid, fluid preliminary looks exudative, studies are pending at this point but she is improving on antibiotics. 2. Ovarian cancer. This appears to be stable currently, antibiotic naylor she is on vancomycin, Merrem, Levaquin and micafungin, we will need input from ID as to what her long-term antibiotic will be. Pending her white count we will repeat her chest x-ray tomorrow and follow. Pleural fluid is cultured and I am waiting for further data. 3. Nausea and vomiting. She appears to be improving I think were doing okay from that standpoint. 4. Diabetes appears to be relatively 5. Disposition. Again she is motivated to go home which I am impressed with but she is not quite there yet. I think we just need to monitor her for another day or 2 and see how she progresses. cc: Mark Knapp MD
[2017-05-13] MEDS: DUONEB (A & A) INH SCH ×5 (03:48→20:17)
[2017-05-13] MEDS: VANCOMYCIN 1.5 GM in NS 250 ML IV SCH (03:57)
[2017-05-13] MEDS: MERREM 1 GM in NS 50 ML IV SCH ×2 (05:24→12:20)
[2017-05-13 06:23] LABS: HEMATOCRIT 25.2 % (37.0-47.0); HEMOGLOBIN 8.2 g/dL (12.0-16.0); MCHC 32.5 g/dL (33-37); MPV 9.4 FL (7.4-10.4); RBC 2.93 XMIL (4.2-5.4)
[2017-05-13 06:39] LABS: AGAP 11; BUN 5 mg/dL (8-22); CALCIUM 8.1 mg/dL (8.8-10.2); CHLORIDE 104 mmol/L (98-107); COSMO 281; POTASSIUM 3.5 mmol/L (3.5-5.1); SODIUM 141 mmol/L (136-145); TCO2 26 mmol/L (25-35)
[2017-05-13] MEDS: HUMALOG SUBQ SCH ×2 (06:48→12:31)
[2017-05-13] MEDS ORDERED: PRILOSEC PO SCH (07:00)
[2017-05-13] MEDS: MORPHINE IV PRN ×2 (07:16→16:05)
--- NOTE | 2017-05-13 09:08 | PROGRESS NOTE ---
DATE: 05/13/2017 PRESENT ILLNESS: The patient has right-sided infiltrates and pleural effusions. Thoracoscopy was attempted by Dr. Hendrickson, but unable to be completed. MEDICATIONS: The patient is receiving IV vancomycin and meropenem, p.o. Levaquin and IV micafungin. PHYSICAL EXAMINATION: Vital Signs: Temperature is 98.7, pulse 85, respirations 17, blood pressure 157/72. General: This is a somewhat ill-appearing, middle-aged female. She is in no acute distress. Lungs: There were scattered rhonchi on the right side. The left side was clear. Heart rate was regular. Abdomen: Soft and nontender. Chest: The patient's dressing was intact where she had the thoracoscopy tube placed. LAB AND X-RAY: The patient's CBC today showed a white count of 13,550, hemoglobin 8.2 and platelet count 155,000. Pleural fluid culture is negative. Chest x-ray shows a stable right lung infiltrate with effusion. ASSESSMENT AND PLAN: Patient has continuing pulmonary process. I think the process is due to infection or possibly a malignancy from ovarian cancer. My plan is to send the patient home on antibiotics. I put in a consult for [facility] to supply the patient's vancomycin and meropenem and I have electronically pulled up for a prescription for Levaquin, which I have put in the chart. I am stopping micafungin today. I plan to see the patient back in my office in 2 weeks. COMORBIDITIES: Include ovarian cancer. Chemotherapy for ovarian cancer and diabetes mellitus. I requested patient see me in the office in 2 weeks. cc: Villa Jaimes MD
[2017-05-13] MEDS ORDERED: CHLORASEPTIC SORE THROAT LOZENGE MT PRN (10:14)
[2017-05-13] MEDS: ASPIRIN EC PO SCH (10:16)
[2017-05-13] MEDS: FERROUS SULFATE PO SCH (10:16)
[2017-05-13] MEDS: TOPROL XL PO SCH (10:16)
[2017-05-13] MEDS: LEVAQUIN PO SCH (10:16)
[2017-05-13] MEDS: MUCINEX PO SCH (10:16)
[2017-05-13] MEDS: TESSALON PO SCH ×2 (10:16→16:05)
[2017-05-13] MEDS: TAPAZOLE PO SCH ×2 (10:17→16:05)
[2017-05-13] MEDS: NORCO-10 PO PRN ×2 (10:17→19:55)
[2017-05-13] MEDS: PRINIVIL PO SCH (10:17)
[2017-05-13] MEDS: PERIDEX MT SCH (10:18)
[2017-05-13 10:35] LABS: INR 1.02; PROTIME 10.7 Seconds (9.2-11.7)
[2017-05-13] MEDS ORDERED: NS 250 ML ONE (10:38)
[2017-05-13] MEDS ORDERED: STERILE WATER INJ. INJ ONE (10:52)
[2017-05-13 16:48] VITALS: BP 153/62
[2017-05-13] MEDS ORDERED: STERILE WATER INJ. ONE (19:48)
[2017-05-13] MEDS: CATHFLO IV ONE ×2 (19:54→19:55)
--- NOTE | 2017-05-14 09:06 | DISCHARGE SUMMARY ---
ADMISSION DATE: 05/02/2017 DISCHARGE DATE: 05/13/2017 CONSULTATIONS: 1. Dr. Gill with pulmonology. 2. Dr. Jaimes with infectious disease. 3. Dr. Hendrickson with surgery and PICC line placement. PROCEDURES OR OPERATIONS DURING STAY: On 05/10/[address] Hendrickson, right fluoroscopy for history of ovarian cancer and recent right upper lobe pneumonia, mostly visualized with exudate and fluid. There was no obvious metastasis that was visually seen. He did not feel that it was safe to take a biopsy secondary to poor visualization, so biopsy was not obtained. A 28 trocar chest tube was placed in anterior axillary space and attached to Pleur- evac. There were no significant complications noted during this procedure. ADMISSION DIAGNOSES: 1. Persistent right upper lobe pneumonia. 2. Leukocytosis secondary to persistent pneumonia. 3. Iron-deficiency anemia. 4. Disuse myopathy, generalized weakness. 5. Diabetes mellitus type 2. 6. Hypertension. 7. Hypothyroidism. DISCHARGE DIAGNOSES: 1. Persistent right upper lobe pneumonia. Will go home with intravenous and oral antibiotics and Micafungin with [facility]. 2. Leukocytosis is persistent with fevers that maintain 98 to 99. 3. Iron-deficiency anemia with hemoglobin/hematocrit 8.2/25.2 on iron supplementation, and also received 2 units of packed red blood cells on 05/09/2017 for hemoglobin and hematocrit of 7.1 and 21.8. 4. Generalized weakness, disuse myopathy. Physical therapy continued to work with patient. 5. Diabetes mellitus type 2. Pattern blood glucoses essentially remain stable with the occasional elevation over 200. 6. Hypertension. Blood pressure during stay was anywhere from as low one time as 99/59, but essentially was 130s-160s systolic over 60s-70s diastolic on lisinopril 20 mg p.o. daily, metoprolol extended release 100 mg p.o. daily. 7. Hypothyroidism. Continued on methimazole 5 mg p.o. 3 times a day with a thyroid stimulating hormone on 04/25/2017 being 1.63 and free T4 0.87 on 04/23/2017. HOSPITAL COURSE: On 05/02/2017, Ms Esme Bills is a 61-year-old, female with a medical history of ovarian cancer, who had received 6 cycles of chemotherapy and underwent robotic hysterectomy recently on 03/06/2017. She presented to the emergency room with complaints of fever, cough, weakness. She had a recent hospitalization from April 16 until April 26 for pneumonia. X-ray revealed that she has a persistent right upper lobe pneumonia , but has had some improvement from the x-ray that was performed on 04/22/2017. She was found to have a low-grade fever of 100.3, and she claimed to have subjective fevers prior to admit. White count was 19, hemoglobin 7.9, hematocrit 23.8. She received Levaquin in the ER and was resumed with vancomycin and cefepime. On 05/07/2017, she had a chest, abdomen and pelvic CT which showed a medium right pleural effusion, small left pleural effusion that had increased, compressive atelectasis, small pulmonary multiple nodular opacities which included considerations of atypical inflammation lesions versus metastatic lesions. There was a possible thrombus in the right distal IJ, some adenopathy and constipation. Given her stay and the right-sided pneumonia that she had, even on vancomycin and cefepime she continued to have fevers, and infectious disease, Dr. Jaimes, was consulted on 05/08/2017. He changed her antibiotic regimen to meropenem and vancomycin. Blood cultures throughout stay were all negative, except for 1 set on 05/06/2017 that showed diphtheroids, gram-positive rods. On 05/11/2017 she had some pleural fluid sent. Routine culture showed no growth. Gram stain was negative also. Urinalysis remained negative for any infection, but her white count essentially remained elevated; she came in and it was 19, 000. It maxed out at 32,000 on 05/09/2017 and today is 13,000. Her fever remained anywhere from 98- 99 throughout her stay. On 05/09, Dr. Hendrickson was consulted for possible biopsy of the right pleural space, but biopsy was unobtainable due to decreased visual axis. The chest tube was placed and, on 05/12/2017, chest tube was removed. Repeat chest x-ray revealed no pneumothorax. There still trace left pleural effusion and a small right pleural effusion with a central infiltrate. So, she will be discharged home with IV home antibiotics, and per Dr. Jaimes she will continue with IV vancomycin and meropenem, IV Micafungin and p.o. Levaquin. Respiratory status has remained stable without chest tubes. She will need to follow up with Dr. Jaimes as outpatient given her continued IV and p.o. antibiotics. Vital signs are stable at this time and it is deemed appropriate for her to go home. DISCHARGE VITAL SIGNS: Temperature is 98.7 degrees, heart rate 77, respiratory rate 17, blood pressure 157/72, 93 saturation on room air 100% on nasal cannula. DISCHARGE LAB DATA: White blood cells 13,000, hemoglobin 8.2, hematocrit 25.2, platelet count 155, INR is 1.02. Sodium 141, potassium 3.5, BUN 5, creatinine 0.8, glucose 135 , calcium 8.1. IMAGING: Last chest x-ray was 05/12/2017 yesterday; it showed that the right chest tube has been removed. There was a stable small right effusion with central infiltrate, stable trace left pleural effusion, stable mild retrocardiac consolidation atelectasis, stable left PICC line. On 05/07/2017, had a chest, abdomen and pelvic CT which impression showed medium right pleural effusion which is decreased mildly left small pleural effusion, which has increased compressive atelectasis adjacent to the bilateral pleural effusions. Some increase in atelectasis at the posterior left base, multiple small pulmonary nodular opacities which had appeared overall increased in size and number. Considerations included atypical inflammation lesions or metastatic lesions, possible thrombus at the visualized distal right IJ vein. Retrocaval adenopathy which increased mild left external iliac adenopathy, evidence of constipation. DISCHARGE MEDICATIONS: Per Dr. Jaimes will be on: 1. IV vancomycin. 2. IV meropenem. 3. IV Micafungin. 4. Will also be on p.o. Levaquin. 5. Other medications will be verified by Dr. Knapp. DISCHARGE DIET: Diabetic diet with Glucerna supplementation shakes each meal. DISCHARGE ACTIVITY: As tolerated. DISPOSITION: Home with home health IV antibiotic therapy. DISCHARGE INSTRUCTIONS: Will need to follow up with Dr. Jaimes and Dr. Walton as outpatient. Dictated by MARIA T Caraballo for Mark Knapp MD cc: MARIA T Caraballo MD pt examined, agree with above [facility] MTDD
== END 2017-05-13 20:56 | disposition home health service (06) ==
LOC: P.ED 10:59 → 4N 16:54 → SUATTDRO 16:54 → 4N 17:31
PROVIDERS: ATTEND Internal Medicine
PROC: GE.THRS (2017-05-10 14:56)

== ENCOUNTER 2017-05-23 10:49 | Inpatient (IN) ==
[2017-05-23] MEDS ORDERED: ASPIRIN PO STA (11:29)
--- NOTE | 2017-05-23 11:48 | EKG Report ---
Test Performed on : 05/23/2017 11:36:55 AM Test Reason : CHEST PAIN Blood Pressure : / mmHG Vent. Rate : 096 BPM Atrial Rate : 096 BPM P-R Int : 132 ms QRS Dur : 080 ms QT Int : 344 ms P-R-T Axes : 034 027 055 degrees QTc Int : 434 ms Normal sinus rhythm. Cannot rule out Anterior infarct (cited on or before 02-MAY-2017) Abnormal ECG When compared with ECG of 02-MAY-2017 12:36, T wave inversion no longer evident in Inferior leads T wave inversion no longer evident in Anterior leads Unconfirmed Result
[2017-05-23 11:56] LABS: MANUAL DIFF NEEDED? NO
[2017-05-23 12:22] LABS: BASO% 0.2 % (0.0-0.8); EOS# 1.06 X1000 (0.0-0.7); EOS% 5.5 % (0.0-10.0); HEMOGLOBIN 7.9 g/dL (12.0-16.0); IMM GRAN# 0.07 X1000 (0.0-0.04); IMM GRAN% 0.4 % (0.0-0.5); LYMPH# 2.17 X1000 (1.2-3.4); LYMPH% 11.2 % (20.5-51.1); MCH 27.9 PG (27-31); MCHC 32.9 g/dL (33-37); MCV 84.8 FL (81-99); MONO# 1.19 X1000 (0.11-0.59); MONO% 6.1 % (1.7-9.3); MPV 10.1 FL (7.4-10.4); NEUT% 76.6 % (42.2-75.2); PLT 203 X1000 (130-400); RBC 2.83 XMIL (4.2-5.4)
--- NOTE | 2017-05-23 12:27 | Diag Imaging Result Doc PS360 ---
CHEST-2 VIEWS - 05/23/2017 INDICATION: CP TECHNIQUE: COMPARISON: 05/18/2017 FINDINGS: Stable left PICC line in good position. Heart size remains normal. Lung volumes remain low. There is a grossly stable small left basilar pleural effusion. Stable trace right pleural effusion and also a right lateral chest wall pleural collection compatible with a loculated effusion. Stable mild infiltrate at the right lung base along with diffusion. IMPRESSION: Little change from prior. Bilateral small pleural effusions. Small loculated effusion at the lateral right upper lobe. Electronically signed by Cuba Rajput 05/23/2017 12:24 PM
[2017-05-23 12:28] LABS: INR 1.04 (0.86-1.15); PROTIME 13.9 Seconds (12.1-15.5)
[2017-05-23 12:54] LABS: AGAP 10; ALBUMIN 2.9 g/dL (3.5-5.0); ALKALINE PHOSPHATASE 115 U/L (32-104); BUN 6 mg/dL (8-22); CHLORIDE 101 mmol/L (98-107); CK PROFILE 25 U/L (24-173); COSMO 270; GOT 15 U/L (10-30); GPT 6 U/L (10-36); MAGNESIUM 1.7 mg/dL (1.5-2.7); POTASSIUM 3.7 mmol/L (3.5-5.1); SODIUM 134 mmol/L (136-145); TCO2 23 mmol/L (25-35); TOTAL PROTEIN 7.2 g/dL (6.3-8.3)
[2017-05-23] MEDS ORDERED: VANCOMYCIN 1 GM/NS 1 GM/250 ML IVPB IV ONE ×2 (13:14→17:30)
[2017-05-23] MEDS ORDERED: MERREM 1 GM in NS 50 ML IV ONE (13:14)
--- NOTE | 2017-05-23 13:15 | PROVIDER DOCUMENTATION ---
This chart was entered by Lindsey Miller Scribe, acting as scribe for Hi Espino MD. HPI-General Adult - General Chief Complaint: Fever Stated Complaint: COUGH AND CONGESTION Time Seen by Provider: 05/23/17 10:54 Source: patient, family Allergies/Adverse Reactions: Patient Allergies Allergy/AdvReac Type Severity Reaction Status Date / Time codeine Allergy RASH Verified 05/18/17 22:22 Penicillins Allergy RASH Verified 05/18/17 22:22 Home Medications: Home Medication List Medication Instructions Recorded Confirmed Last Taken Type Gabapentin 300 mg PO HS 04/17/16 05/23/17 05/22/17 21:00 History Metformin HCl 1,000 mg PO BID 04/17/16 05/23/17 05/23/17 09:00 History Metoprolol Succinate E.r. [Toprol 100 mg PO DAILY 04/17/16 05/23/17 05/23/17 09: 00 History Xl] LISINOpril [Prinivil] 20 mg PO DAILY 08/25/16 05/23/17 05/23/17 09:00 History Methimazole 5 mg PO TID 04/16/17 05/23/17 05/23/17 09:00 History Levofloxacin [Levaquin] 500 mg PO DAILY #30 tablet 05/13/17 05/23/17 05/23/17 09 :00 Rx Amlodipine Besylate 1 tab PF 05/23/17 05/23/17 09:00 History Lorazepam 1 tab PO 05/23/17 Unknown History - History of Present Illness -Gen Adult Nature of Presenting Problems: 61 yo F presents to the ER with complaint of productive cough, weakness, and fever. Pt has a hx of pneumonia. Pt was admitted to for pneumonia, anemia and weakness last month, was discharged x10 days ago. Was seen at for similar symptoms x5 days ago. Denies any CP or pain with inspiration. Associated Symptoms: reports: cough, fever/chills, shortness of breath, weakness . denies: chest pain Review of Systems - Adult - REVIEW OF SYSTEMS - ADULT Constitutional: reports: chills, fever Eyes: reports: no symptoms reported Ears, Nose, Mouth & Throat: reports: no symptoms reported Cardiovascular: denies: chest pain, palpitations Respiratory: reports: cough, shortness of breath Gastrointestinal: denies: diarrhea, nausea, vomiting Genitourinary: reports: no symptoms reported Musculoskeletal: reports: no symptoms reported Integumentary: reports: no symptoms reported Neurological: reports: no symptoms reported Psychiatric: reports: no symptoms reported Endocrine: reports: no symptoms reported Hematologic/Lymphatic: reports: no symptoms reported Allergic/Immunologic: reports: no symptoms reported All Other Systems: Reviewed and Negative Past History - Adult - PAST MEDICAL HISTORY-ADULT Review of Records: reports: Nursing Assessment Review, Medications Reviewed Cardiovascular: reports: HTN, hyperlipidemia Endocrine/Immune: reports: Diabetes - PRIOR SURGERIES/PROCEDURES Surgical/Procedure History: reports: - IMMUNIZATION STATUS Childhood Immunizations: See Nurse Assessment Flu Vaccine: See Nurse Assessment Physical Exam-General - PHYSICAL EXAM-ADULT Initial Vital Signs Reviewed: Yes - CONSTITUTIONAL General Appearance: alert, no apparent distress - EYES Eyes: PERRL/EOMI, pink conjunctivae - HEAD, EARS, NOSE, MOUTH & THROAT HENMT: normocephalic/atraumatic, normal ENT inspection - NECK Neck: supple, normal inspection - RESPIRATORY Respiratory: no respiratory distress, no accessory muscle use, rales ( generalized) - CARDIOVASCULAR Cardiovascular: normal peripheral pulses, regular rate, rhythm - MUSCULOSKELETAL Back Exam: no CVA tenderness, no vertebral tenderness Extremity: normal gait, normal inspection - SKIN Integumentary: normal color, warm/dry - NEUROLOGIC Neurologic: grossly normal, no motor/sensory deficits - PSYCHIATRIC Psych/Mental Status: normal mood/affect, normal thought content, normal thought process, oriented x 3 Progress - PLAN OF CARE/RESULTS Progress/Plan/Lab Results: Vital Signs - 8 hr 05/23/17 10:52 Temperature 99.2 F Pulse Rate 101 H Respiratory Rate 20 Blood Pressure 172/087 O2 Sat by Pulse Oximetry 92 L Result Diagrams: 05/23/17 11:45 05/23/17 11:45 - EKG 1 Time of EKG reading by physician:: 11:36 EKG Read and Signed by:: Hi Espino EKG Interpretation (*Must complete 3 of following elements*): Abnormal (cannot rule out anterior infarct, age undetermined) Rate: 96 Rhythm: normal sinus rhythm Clarence: normal QRS: normal AR Interval: normal ST Wave: normal - XRAY 1 XRAY Study: Chest Impression: See EMR Report (little change from prior. bilateral small pleural effusions. small loculated effusions at the lateral R upper lobe. per radiologist. RLL pneumonia per Dr. Espino) Departure - Departure Date of Disposition Decision: 05/23/17 Time of Disposition Decision: 13:15 DIAGNOSIS: Pneumonia Disposition: ADMITTED INPATIENT 09 Certified Medical Emergency: Emergent Condition: Stable Referrals and Follow-Ups: None,PCP [Primary Care Provider] - - Critical Care Note This patient required my direct & personal management of CC.: No Attestation - Physician/ FLORENTIN Attestation The physician spent face to face time with patient:: Yes Advanced Practice Provider documentation review:: The physician spent face to face time with this patient and agrees with all MLP documentation, treatment, and medical decision making by the MLP. See provider notes for further information. This chart was documented by the indicated scribe, (Lindsey Miller Scribe) and accurately reflects the services I performed and decisions made by Srinivas atkins Christophe I, MD, as attested by the provider's signature.
--- NOTE | 2017-05-23 14:50 | HISTORY AND PHYSICAL ---
CHIEF COMPLAINT: Productive cough. Weakness. Subjective fever. HISTORY OF PRESENTING ILLNESS: This is a 61-year-old female who is well known to this service. Last admission was noted on 05/02/2017 through 05/13/2017, with a persistent pneumonia at that time. Admitted previously to that on 04/16/17 through 2016 with a pneumonia. Presents to [facility] ER today with complaints of a productive cough, weakness, subjective fever. Was in the emergency room on 11/2016 with the same complaints and was discharged home. Today presents on her laboratory data with a white blood cell count of 19.41. Her chest x-ray today showed an impression of little change from prior, bilateral small pleural effusions and a small loculated effusion at the lateral right upper lobe with a stable mild infiltrate at the right lung base along with diffusion. She is being admitted to the medical unit for further evaluation and treatment. PAST MEDICAL HISTORY: Advanced stage ovarian cancer. Completed 4 rounds of chemo that ended on 03/02/2017. Asthma, diabetes type 2, hyperlipidemia, hypertension and hyperthyroidism. PAST SURGICAL HISTORY: and a robotic total hysterectomy. FAMILY HISTORY: Noncontributory. SOCIAL HISTORY: She currently resides with family and has home health. Denies any tobacco, alcohol, or illicit drug use. ALLERGIES: Codeine and penicillin. HOME MEDICATIONS: 1. Gabapentin 300 mg p.o. at bedtime. 2. She was on Levaquin 500 mg p.o. daily which will be held. 3. Prinivil 20 mg p.o. daily. 4. Metformin 1000 mg p.o. daily. 5. Methimazole 5 mg p.o. t.i.d. 6. Toprol 100 mg p.o. daily. 7. We will hold off on starting we will verify her current dosage of her amlodipine and her lorazepam and restart those once they have thus verified. LABORATORY DATA/DIAGNOSTICS: White blood cell count of 19.41, hemoglobin 7.9, hematocrit 24, platelets 203,000. PT and INR of 13.9 and 1.04. Sodium of 134, potassium 3.7, chloride 101, CO2 23, BUN of 6, creatinine 0.8, glucose 173. Chest x-ray showed little change from prior. Bilateral small pleural effusions and a small loculated effusion at the lateral right upper lobe. EKG showed normal sinus rhythm at 96. REVIEW OF SYSTEMS: She was positive for a subjective fever, body aches, weakness, productive cough of clear sputum, some shortness of breath, generalized fatigue. PHYSICAL EXAMINATION: VITAL SIGNS: On arrival, she had a temperature of 99.2 degrees, pulse of 101, respirations 20, blood pressure 172/87, saturating 92% on room air. Placed on O2 at 2 L, now saturating 98%. GENERAL: This is a 61-year-old female who is lying in the bed , but answers questions appropriately. HEENT: Normocephalic and atraumatic. Pupils are equal, round, and reactive to light. Extraocular movements are intact. The oropharynx and nares are clear. NECK: Supple. LUNGS: Clear to auscultation with equal lung expansion and chest wall movement. HEART: With regular rate and rhythm. No murmurs, rubs, or gallops. ABDOMEN: Soft, nontender, nondistended. She is noted to have on the outer left middle quadrant a 0.5 cm knot that has come up. Unsure of the etiology of the day. We will have attending addressed and assess. EXTREMITIES: No clubbing, cyanosis, or edema. NEUROLOGICAL: The cranial nerves 2-12 are grossly intact. ASSESSMENT: 1. A persistent right lower lobe pneumonia. 2. Leukocytosis. 3. Hypertension. 4. Diabetes type 2. 5. Advanced age ovarian cancer. PLAN: She will be admitted to the medical unit. Placed on telemetry. Vital signs q.4 hours. O2 per protocol. Incentive spirometry. Diabetic diet. We will continue her home medications as previously identified. Place on Merrem 1 gram IV q.8 and vancomycin per pharmacy protocol. Recheck a CBC, CMP in the a.m. Dictated by MARIA T Oliveira for Etienne Paul MD cc: MARIA T Oliveira MD I have seen and examined patient and I agree with the above plan. A persistent right lower lobe pneumonia. continue antibiotics. close attention to respiratory status. MTDD
[2017-05-23] MEDS ORDERED: VANCOMYCIN IV PER PHARMACY MISC SCH (16:36)
[2017-05-23] MEDS: TAPAZOLE PO SCH (17:01)
[2017-05-23] MEDS: GLUCOPHAGE PO SCH (17:02)
[2017-05-23] MEDS: TYLENOL PO PRN (18:30)
[2017-05-23] MEDS: DUONEB (A & A) INH SCH ×2 (19:19→22:47)
[2017-05-23] MEDS: MERREM 1 GM in NS 50 ML IV SCH (20:35)
[2017-05-23] MEDS: NEURONTIN PO SCH (20:35)
[2017-05-23] MEDS ORDERED: NORCO-7.5 PO ONE (21:18)
[2017-05-24] MEDS: DUONEB (A & A) INH SCH ×6 (02:44→23:05)
[2017-05-24] MEDS: MERREM 1 GM in NS 50 ML IV SCH ×3 (04:21→20:53)
[2017-05-24] MEDS: TYLENOL PO PRN ×3 (04:21→15:55)
[2017-05-24 07:30] LABS: BASO% 0.3 % (0.0-0.8); EOS# 1.16 X1000 (0.0-0.7); HEMATOCRIT 23.6 % (37.0-47.0); HEMOGLOBIN 7.7 g/dL (12.0-16.0); IMM GRAN% 0.4 % (0.0-0.5); LYMPH# 1.51 X1000 (1.2-3.4); LYMPH% 6.5 % (20.5-51.1); MANUAL DIFF NEEDED? YES; MCH 27.6 PG (27-31); MCHC 32.6 g/dL (33-37); MCV 84.6 FL (81-99); MONO# 1.58 X1000 (0.11-0.59); MONO% 6.8 % (1.7-9.3); MPV 10.4 FL (7.4-10.4); PLT 193 X1000 (130-400); RBC 2.79 XMIL (4.2-5.4)
[2017-05-24 07:39] LABS: AGAP 13; ALBUMIN 2.7 g/dL (3.5-5.0); ALKALINE PHOSPHATASE 122 U/L (32-104); BUN 6 mg/dL (8-22); CALCIUM 8.6 mg/dL (8.8-10.2); CHLORIDE 103 mmol/L (98-107); COSMO 275; GOT 15 U/L (10-30); GPT 6 U/L (10-36); POTASSIUM 3.8 mmol/L (3.5-5.1); SODIUM 137 mmol/L (136-145); TCO2 21 mmol/L (25-35); TOTAL PROTEIN 6.9 g/dL (6.3-8.3)
[2017-05-24 07:44] LABS: EOS 3 % (1-10); LYMPHS 7 % (21-51)
[2017-05-24 07:46] LABS: HYPOCHROM 2+
[2017-05-24] MEDS: PRINIVIL PO SCH (08:22)
[2017-05-24] MEDS: GLUCOPHAGE PO SCH (08:22)
[2017-05-24] MEDS: TOPROL XL PO SCH (08:22)
[2017-05-24] MEDS: TAPAZOLE PO SCH ×3 (08:22→17:14)
[2017-05-24] MEDS ORDERED: ZOFRAN IV PRN (08:45)
[2017-05-24] MEDS ORDERED: LEVAQUIN 750 MG/D5W 750 MG/150 ML IVPB IV SCH (13:15)
--- NOTE | 2017-05-24 13:48 | PROGRESS NOTE ---
DATE: 05/24/2017 Today Ms. Bills continues to have some shortness of breath and some pleuritic chest pain especially on the right side. OBJECTIVE: Vital signs: Blood pressure is 138/65, pulse of 119, respiration is 18, temperature is 102.6 degrees. General: Ms. Bills is a 61-year-old female. She is in bed, in mild respiratory and painful distress. HEENT: Mucosa is slightly dry. Anicteric and acyanotic. Neck: Supple. Chest: Air entry is bilaterally reduced. There are a few crepitations more so to the right posterior lung base. Abdomen: Soft. Extremities: No pedal edema. 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 LABORATORY DATA: WBC is 23.29, hemoglobin is 7.7, platelet count of 193,000. Chemistry is reviewed. Unremarkable. A chest x-ray done yesterday shows bilateral small pleural effusions, small loculated effusion at the lateral right upper lobe. ASSESSMENT: 1. Acute hypoxemic respiratory failure. 2. Pleuritic chest pain secondary to persistent right lower lobe pneumonia with parapneumonic effusion. 3. Sepsis secondary to underlying pneumonia. 4. History of advanced ovarian cancer. 5. Diabetes mellitus. So today Ms. Bills continues to be remarkably in mild respiratory distress and also pleuritic chest pain. We are going to up titrate her pain medication. I am going to add levofloxacin micafungin since she was previously being treated for fungal infection. I think Ms. Bills will need to be eventually seen by Surgery and Infectious Disease as well as a Pulmonary because the loculated effusion eventually needs to be cleaned. I will go ahead and repeat a CT scan of the lungs. Depending on the anatomy we will make further recommendations. cc: Etienne Paul MD MTDD
[2017-05-24] MEDS: MORPHINE IV PRN ×3 (13:49→22:02)
[2017-05-24] MEDS ORDERED: VANCOMYCIN 1,500 MG in NS 250 ML IV SCH (18:00)
[2017-05-24] MEDS: NEURONTIN PO SCH (20:52)
[2017-05-24] MEDS ORDERED: MYCAMINE 100 MG in NS 100 ML IV SCH (22:00)
[2017-05-25] MEDS: TYLENOL PO PRN ×3 (00:11→21:48)
[2017-05-25] MEDS: MORPHINE IV PRN ×4 (02:22→19:33)
[2017-05-25] MEDS: DUONEB (A & A) INH SCH ×5 (03:40→23:25)
[2017-05-25] MEDS: MERREM 1 GM in NS 50 ML IV SCH ×3 (04:55→21:48)
[2017-05-25 06:21] LABS: BASO% 0.1 % (0.0-0.8); EOS# 0.22 X1000 (0.0-0.7); EOS% 0.8 % (0.0-10.0); HEMATOCRIT 23.9 % (37.0-47.0); HEMOGLOBIN 7.5 g/dL (12.0-16.0); IMM GRAN# 0.13 X1000 (0.0-0.04); IMM GRAN% 0.4 % (0.0-0.5); LYMPH# 2.02 X1000 (1.2-3.4); LYMPH% 6.9 % (20.5-51.1); MANUAL DIFF NEEDED? YES; MCH 26.9 PG (27-31); MCHC 31.4 g/dL (33-37); MCV 85.7 FL (81-99); MONO# 2.09 X1000 (0.11-0.59); MONO% 7.1 % (1.7-9.3); MPV 9.8 FL (7.4-10.4); NEUT% 84.7 % (42.2-75.2); PLT 195 X1000 (130-400); RBC 2.79 XMIL (4.2-5.4)
[2017-05-25 06:37] LABS: BE 0.8 mmoll (-3.0-3.0); BLOOD TYPE ARTERIAL; DRAW SITE R RADIAL; METHB 1.3 % (0.0-1.5); O2(CT) 9.1 mL/dL (15.0-23.0); PCO2(98.6) 39 mmHg (35-45); SAMPLE BLOOD; SAO2 86.3 % (95.0-100.0); THB 7.8 g/dL (11.5-17.4); pH(98.6) 7.42 (7.35-7.45)
[2017-05-25 06:41] LABS: ALLEN TEST YES; MODALITY CANNULA; PO2(98.6) 42 mmHg (60-100)
[2017-05-25 06:54] LABS: LYMPHS 10 % (21-51); MONO 4 % (1-9)
[2017-05-25 06:58] LABS: ALBUMIN 2.6 g/dL (3.5-5.0); CALCIUM 8.4 mg/dL (8.8-10.2); MAGNESIUM 1.6 mg/dL (1.5-2.7); POTASSIUM 3.6 mmol/L (3.5-5.1); TOTAL BILIRUBIN 0.5 mg/dL (0.20-1.00); TOTAL PROTEIN 6.5 g/dL (6.3-8.3)
--- NOTE | 2017-05-25 07:26 | Diag Imaging Result Doc PS360 ---
EXAM: CT THORAX W/CONTRAST HISTORY: pneumonia TECHNIQUE: Dose reduction protocol COMPARISON: 05/07/2017 FINDINGS: There are [id number] sized bilateral pleural effusions. The one on the right measures 2.8 cm posteriorly and inferiorly where is the one on the left measures 2.9 cm. The left-sided effusion is slightly larger than on the prior exam. No thoracic aortic aneurysm or dissection. No cardiomegaly. Normal opacification of the pulmonary arteries and their major branches. There are calcified mediastinal and hilar lymph nodes in addition to mildly prominent noncalcified nodes. These are unchanged. There are scattered granuloma. Multiple scattered noncalcified nodules atelectasis to both lower lobes. IMPRESSION: 1.Bilateral pleural effusions with basilar atelectasis. No interval improvement. There may be underlying infiltrates as well. 2.There is evidence of a prior granulomatous infection 3.Multiple small scattered noncalcified nodules. Questionable slight worsening. Electronically signed by Stan Tristan 05/25/2017 7:23 AM
[2017-05-25] MEDS: PRINIVIL PO SCH (09:13)
[2017-05-25] MEDS: TAPAZOLE PO SCH ×2 (09:13→13:57)
[2017-05-25] MEDS: TOPROL XL PO SCH (09:13)
--- NOTE | 2017-05-25 11:19 | PROGRESS NOTE ---
DATE: 05/25/2017 SUBJECTIVE: This patient is still complaining of mild shortness of breath and pleuritic chest pain on the right side, apparently she has been treated for this condition before. She has been tachycardic and she has been having a fever. Leukocytes are trending up even though she is on levofloxacin, meropenem, micafungin, and vancomycin. I do believe that this patient needs to be transferred to a hospital with a higher level of care like [facility]. The Surgery Department, Pulmonary Department, and Infectious Disease Department will be onboard. OBJECTIVE: Vital Signs: Temperature 98.5, pulse 108, respiratory rate 18, blood pressure 150/57, oxygen saturation 100% on 2 L of nasal cannula. HEENT: Head is normocephalic. No trauma. PERRLA. Neck: Supple. No JVD. No masses. Central trachea. Chest: Decreased breath sounds bilaterally, mostly at the level of the right lower lung with rhonchi. Abdomen: Soft. Extremities: No edema, no clubbing, and no cyanosis. Neurological: The patient is alert and oriented times 3. No focal deficits. LABORATORY: WBC 29.2, hemoglobin 7.5, hematocrit 23.9, and platelets 195. Sodium 134, potassium 3.6, chloride 100, bicarbonate 23, BUN 8, creatinine 1.1, glucose 157, calcium 8.4, and albumin 2.6. ASSESSMENT AND PLAN: 1. Acute hypoxemic respiratory failure, this patient's oxygen saturation is better. We will continue with oxygen supplementation. We will continue with the antibiotics and breathing treatments. This patient is still complaining of shortness of breath and I do believe that part of this is because of her pleuritic chest pain. 2. Right lower lobe pneumonia with parapneumonic effusion. This is the cause of the pleuritic chest pain. We had a CT scan of the chest done yesterday that showed bilateral pleural effusions with basilar atelectasis with no interval improvement. There may be underlying infiltrates as well. There is evidence of a prior granulomatous infection and multiple small scattered noncalcified nodules. Like I mentioned before, this patient should be evaluated by the Pulmonary Department and probably the Surgery Department as well. For now we will continue with the same antibiotics. 3. Sepsis secondary to underlying pneumonia. Continue with the same management. Blood pressure has been stable. She is still having a fever and leukocytosis. 4. History of advanced ovarian cancer. Aware. 5. Type 2 diabetes. Blood sugar is stable. Continue with the same management. Overall, this patient is not getting better. She will transfer to a higher level of care, [facility]. I have already talked to the accepting physician. I do believe that this patient should be evaluated by the Infectious Disease Department, the Pulmonary Department, the Surgery Department, and probably Hematology Oncology. cc: Brandon Blanc MD
[2017-05-25] MEDS: ZOFRAN IV PRN ×2 (13:57→21:50)
[2017-05-25] MEDS: VANCOMYCIN 1,500 MG in NS 250 ML IV SCH (19:34)
[2017-05-25] MEDS: NEURONTIN PO SCH (21:48)
[2017-05-25] MEDS ORDERED: MYCAMINE 100 MG in NS 100 ML IV SCH (22:00)
[2017-05-25] MEDS: LEVAQUIN 750 MG/D5W 750 MG/150 ML IVPB IV SCH (22:53)
[2017-05-26] MEDS: MORPHINE IV PRN ×4 (00:01→20:47)
[2017-05-26] MEDS: ZOFRAN IV PRN ×3 (02:28→21:43)
[2017-05-26] MEDS: TYLENOL PO PRN ×3 (02:28→17:26)
[2017-05-26] MEDS: DUONEB (A & A) INH SCH ×6 (03:26→23:21)
[2017-05-26] MEDS: MERREM 1 GM in NS 50 ML IV SCH ×3 (06:31→21:42)
--- NOTE | 2017-05-26 07:33 | CONSULTATION ---
DATE OF CONSULTATION: 05/26/2017 REFERRING PHYSICIAN: The patient is seen in consultation at the request of MARIA T Caraballo, and Dr. Chavez. REASON FOR CONSULTATION: Ovarian cancer. HISTORY OF PRESENT ILLNESS: Ms. Bills is a 61-year-old, woman who presented to the [place] emergency room with fever, cough, weakness, and shortness of breath. She was previously admitted in mid April with persistent pneumonia. She continues to have cough productive of thick yellow sputum. She continues to have shortness of breath. She has had a thoracentesis during this hospitalization. She has not seen Dr. Landers who is her oncologist in some months. She was scheduled to see him last week but developed a fever and was admitted to the hospital. PAST MEDICAL HISTORY: Asthma, diabetes, hyperlipidemia, hypertension, hypothyroidism, ovarian cancer. PAST SURGICAL HISTORY: and robotic total hysterectomy as well as what sounds like a pelvic exenteration. FAMILY MEDICAL HISTORY: She denies any family history of malignancy. SOCIAL HISTORY: No tobacco, alcohol, or illicit drugs. She resides with her family members. ALLERGIES: Reviewed and documented per the chart. MEDICATIONS: Reviewed and documented per the chart. REVIEW OF SYSTEMS: Reviewed and documented per the chart. Review of systems was negative except as per HPI. PHYSICAL EXAMINATION: Vital Signs: ECOG performance status is a 2. Temperature 98.9 degrees with a T-max of 102.8 degrees this morning. Pulse is 114, respiratory rate 20, blood pressure 113/55, O2 saturation 96% on 2 L. General: This is a chronically ill-appearing , woman in mild discomfort but no acute distress. HEENT: Eyes: Sclerae anicteric. Conjunctivae are pale. Nasal cannula in place. Cardiovascular: Tachycardic but regular rhythm. No murmurs, rubs, or gallops. Pulmonary: Decreased breath sounds at right lung base with coarse bilateral breath sounds. Gastrointestinal: Abdomen is soft, nontender, nondistended with normoactive bowel sounds. Extremities: No clubbing or cyanosis. Trace bilateral ankle edema. Neurologic: Alert and oriented x3. No focal deficits. Gait not assessed as patient is in the bed during consultation. LABORATORY DATA: White count 29.2, hemoglobin 7.5, platelet count 195,000, with 85 segmented neutrophils, 7 lymphocytes. INR 1.04, PTT 39. PH 7.42, pCO2 39, PO2 42. Sodium 134, creatinine 1.1, calcium 8.4. Magnesium 1.6. Phosphorus 3.5. AST 11, ALT 5, alkaline phosphatase 125. Imaging: Chest CT 05/25/2017 shows small to moderate size bilateral effusions. One on the right is 2.8 cm posteriorly and inferiorly. One on the left is 2.9 cm. Left-sided effusion is slightly larger than on prior exam. Calcified mediastinal and hilar nodes, in addition to mildly prominent noncalcified nodes are noted. Evidence of prior granulomatous infection is present. Multiple scattered noncalcified nodules in both lobes as well as atelectasis are noted. Questionable slight worsening. Pathology 05/11/2017, cytology from right pleural fluid shows no malignancy. ASSESSMENT/PLAN: This is a 61-year-old, woman with: 1. Probable ovarian cancer: I will obtain records from Dr. Landers's office and notify him of her admission. He may wish to have her transferred to [place] for further evaluation of possible metastatic disease. I will check a CA-125 at this time. 2. Pulmonary nodules, malignancy versus metastatic disease. CA-125 will be checked at this time as well as continuing current antibiotics. Pleural fluid has been assessed with no evidence of malignancy. Should she require a future thoracentesis, then I would plan to repeat the cytology along with cell count, LDH, total protein, and glucose to evaluate for malignant versus infectious effusion. 3. Fever: She has continued to be febrile. Monitor cultures and expand antibiotic coverage as needed. 4. Anemia: I will check iron stores, B12, and folic acid at this time. Replete those as indicated. 5. Ovarian cancer: Obtain records from Dr. Landers's office. cc: MD Azam Walker MD I have seen and examined the patient and reviewed the chart and I agree with the above assessment and plan. We will obtain records from Dr. Landers's office. Our office has not previously met or treated the patient. LIZABETH
[2017-05-26 08:05] LABS: IRON SATURATION 19 %; TIBC 115 ug/dL; TOTAL IRON 22 ug/dL (49-151); UNBOUND IRON 93 ug/dL (112-346)
[2017-05-26 08:28] LABS: FERRITIN 763 ng/mL (13-150)
[2017-05-26] MEDS: TOPROL XL PO SCH (09:22)
[2017-05-26] MEDS: TAPAZOLE PO SCH ×3 (09:23→16:57)
[2017-05-26] MEDS: PRINIVIL PO SCH (09:23)
[2017-05-26 10:00] LABS: BASO% 0.2 % (0.0-0.8); EOS# 0.13 X1000 (0.0-0.7); EOS% 0.5 % (0.0-10.0); HEMATOCRIT 22.3 % (37.0-47.0); HEMOGLOBIN 7.2 g/dL (12.0-16.0); IMM GRAN# 0.13 X1000 (0.0-0.04); IMM GRAN% 0.5 % (0.0-0.5); LYMPH# 1.85 X1000 (1.2-3.4); MANUAL DIFF NEEDED? YES; MCH 28.1 PG (27-31); MCHC 32.3 g/dL (33-37); MCV 87.1 FL (81-99); MONO# 1.99 X1000 (0.11-0.59); MONO% 7.5 % (1.7-9.3); MPV 10.5 FL (7.4-10.4); NEUT% 84.3 % (42.2-75.2); PLT 203 X1000 (130-400); RBC 2.56 XMIL (4.2-5.4)
[2017-05-26 10:08] LABS: CALCIUM 8.1 mg/dL (8.8-10.2)
[2017-05-26 10:34] LABS: BANDS 6 % (0-1); LYMPHS 2 % (21-51)
[2017-05-26 10:35] LABS: HYPOCHROM 2+
[2017-05-26] MEDS: TESSALON PO SCH ×3 (11:52→17:25)
--- NOTE | 2017-05-26 11:56 | PROGRESS NOTE ---
DATE: 05/26/2017 SUBJECTIVE: The patient reports feeling having still a fever and coughing a lot. Not feeling overall good. OBJECTIVE: Vital Signs: Temperature 98 degrees but around midnight, 102.8. Heart rate 100, respiratory rate 18, blood pressure 132/60, O2 saturation 100% on 2 L nasal cannula. General Examination: This is a chronically ill-looking and frail, 61-year-old, female looking older than her age, lying in bed, in no acute distress. HEENT: Head is normocephalic and atraumatic. Anicteric sclerae and pale conjunctivae. Mucous membranes moist. Neck: Supple. No JVD noted. No carotid bruits. No lymphadenopathy. No thyromegaly. Cardiovascular Examination: S1 and S2 heard. No murmurs, gallops, or rubs. Regular rate and rhythm. Tachycardic heart sounds. Respiratory Examination: Decreased breath sounds globally with mild wheezing in both bases. Patient is not using any accessory muscles or having work of breathing. Abdomen: Soft, nontender to palpation. Bowel sounds present. No organomegaly. Extremities: No clubbing, cyanosis, or edema. Peripheral pulses present in both legs. Neurological Examination: Patient is alert and oriented x3. Moves 4 extremities. Cranial nerves 2-12 are grossly normal. Laboratory Data: White cell count 26.56, hemoglobin 7.2, hematocrit 22.3, platelets 203,000. The BMP is remarkable for creatinine of 1.3. ASSESSMENT AND PLAN: 1. Acute hypoxemic respiratory failure. The oxygen needs are actually getting better, requiring now 2 L of oxygen by nasal cannula. She is still complaining of shortness of breath clinically. 2. Right lower lobe pneumonia with parapneumonic effusion. CT scan yesterday and from 1 month ago showed bilateral pleural effusion. There are some small nodules but I am not sure if this could be this could be metastasis from ovarian cancer or not. We have consulted pulmonary and also infectious disease, and we are awaiting recommendations. Currently, patient is on meropenem, vancomycin, levofloxacin, and micafungin. 3. Sepsis secondary to underlying pneumonia. Patient is still spiking fever. We are going to continue with the same management. 4. History of advanced ovarian cancer. We have consulted Dr. Panchal from oncology. We will follow recommendations. 5. Diabetes type 2. Blood sugars are stable. We will continue with the same management. cc: Azam Gomez MD
[2017-05-26] MEDS: HUMALOG SUBQ SCH ×2 (16:55→21:43)
--- NOTE | 2017-05-26 17:04 | PROGRESS NOTE ---
DATE: 05/26/2017 CONCLUSION: The patient had been being treated for pneumonia. She was receiving IV vancomycin and meropenem and micafungin and p.o. Levaquin. She has been readmitted to the hospital because of progression of weakness and dyspnea. Also, it is noted that she is running a low-grade fever. RECOMMENDATIONS: I have discontinued micafungin and for now I think it is reasonable to cover the patient with vancomycin, meropenem and Levaquin. I have discontinued micafungin. PHYSICAL EXAMINATION: Vital Signs: Temperature is 100.1 degrees, pulse 115, respirations 20, blood pressure 155/65. Patient weighs 148 pounds. General: This is an ill- appearing, middle- aged female. She does seem to be having some pain which she complains of all over and she seems somewhat dyspneic at rest. Neck: No meningismus. Thorax: No increased AP diameter of the chest. Lungs: There are bilateral rhonchi. Cardiovascular: Regular heart rate. Abdomen: Soft and nontender without masses or tenderness. Neurologic: Patient is awake. She responds slowly to questions or to moving her legs. There is no tremor. Integument: No rash noted. Arms: PICC site not red or swollen. LAB AND X-RAY: The patient's CBC shows a white count of 26,560, hemoglobin 7.2 , and platelet count 203,000. Creatinine is 1.3. GFR is 50. CT scan of the chest shows right lower lobe pneumonia, bilateral pleural effusions with bibasilar atelectasis versus pneumonia. The chest x- ray has multiple nodules in the lungs. ASSESSMENT AND PLAN: Continue with Levaquin, meropenem, and vancomycin, and discontinue micafungin. COMORBIDITY:: I think there is a good chance that the patient's pulmonary symptoms and her generalized decline in health are from her metastatic ovarian cancer. Also another comorbidity in this patient would be diabetes mellitus as well as disseminated ovarian cancer. Comorbidities include metastatic ovarian cancer, chemotherapy, and diabetes mellitus. cc: MD Azam Hamilton MD MTDD
[2017-05-26] MEDS: VANCOMYCIN 1,500 MG in NS 250 ML IV SCH (18:55)
[2017-05-26] MEDS: NEURONTIN PO SCH (21:43)
[2017-05-26] MEDS: LEVAQUIN 750 MG/D5W 750 MG/150 ML IVPB IV SCH (22:52)
[2017-05-27] MEDS: DUONEB (A & A) INH SCH ×6 (02:41→23:26)
[2017-05-27] MEDS: MORPHINE IV PRN ×2 (04:50→08:50)
[2017-05-27] MEDS: ZOFRAN IV PRN (04:51)
[2017-05-27] MEDS: MERREM 1 GM in NS 50 ML IV SCH ×3 (04:54→21:06)
[2017-05-27] MEDS: TYLENOL PO PRN ×2 (05:27→16:08)
[2017-05-27] MEDS: HUMALOG SUBQ SCH ×4 (06:05→21:07)
[2017-05-27] MEDS: TESSALON PO SCH ×3 (08:40→17:08)
[2017-05-27] MEDS: TOPROL XL PO SCH (08:40)
[2017-05-27] MEDS: PRINIVIL PO SCH (08:40)
[2017-05-27] MEDS: TAPAZOLE PO SCH ×4 (08:40→17:08)
[2017-05-27 09:44] LABS: BASO% 0.1 % (0.0-0.8); EOS% 1.5 % (0.0-10.0); HEMATOCRIT 21.9 % (37.0-47.0); HEMOGLOBIN 7.1 g/dL (12.0-16.0); IMM GRAN# 0.14 X1000 (0.0-0.04); IMM GRAN% 0.5 % (0.0-0.5); LYMPH# 1.71 X1000 (1.2-3.4); LYMPH% 6.3 % (20.5-51.1); MANUAL DIFF NEEDED? YES; MCH 28.1 PG (27-31); MCHC 32.4 g/dL (33-37); MCV 86.6 FL (81-99); MONO# 2.03 X1000 (0.11-0.59); MONO% 7.5 % (1.7-9.3); MPV 10.8 FL (7.4-10.4); NEUT% 84.1 % (42.2-75.2); PLT 196 X1000 (130-400); RBC 2.53 XMIL (4.2-5.4)
[2017-05-27 10:07] LABS: BANDS 2 % (0-1); EOS 3 % (1-10); LYMPHS 11 % (21-51); MONO 6 % (1-9)
[2017-05-27 10:10] LABS: HYPOCHROM 2+
[2017-05-27 10:12] LABS: TARGET CELLS OCCASIONAL
[2017-05-27 10:24] LABS: CALCIUM 8.7 mg/dL (8.8-10.2); POTASSIUM 4.1 mmol/L (3.5-5.1)
[2017-05-27] MEDS ORDERED: VANCOMYCIN 1,500 MG in NS 250 ML IV SCH (12:00)
--- NOTE | 2017-05-27 14:54 | CONSULTATION ---
DATE OF CONSULTATION: 05/27/2017 REFERRING PHYSICIAN: Dr. Paul. CHIEF COMPLAINT: Productive cough, fever, weakness. HISTORY OF PRESENT ILLNESS: This is a 61-year-old, female with a past medical history of advanced ovarian cancer, asthma, diabetes, hyperlipidemia, hypertension, and hyperthyroidism that presented to the hospital with complaints of productive cough, weakness, and subjective fever. Her temperature this morning was 102.4. She has been evaluated for her acute hypoxic respiratory failure, pneumonia, sepsis. She states that she is still not feeling very well. REVIEW OF SYSTEMS: A 10-point review of systems was conducted. Pertinent findings noted on the HPI, otherwise noncontributory. PAST MEDICAL HISTORY: As mentioned in the HPI, otherwise noncontributory. PAST SURGICAL HISTORY: and robotic total hysterectomy. FAMILY HISTORY: Noncontributory. ALLERGIES: Codeine and penicillin. SOCIAL HISTORY: The patient lives at home with family. Denies use of tobacco, alcohol, or illicit drugs. ACTIVE MEDICATIONS: Tylenol, DuoNeb, Tessalon, Neurontin, Humalog, Levaquin, Prinivil, Merrem, Tapazole, Toprol, vancomycin, morphine, Zofran. PHYSICAL EXAMINATION: Vital Signs: Blood pressure 136/66, heart rate 120, respiratory rate 18, temperature 102.4 degrees, oxygen saturation 96%. General: Awake, alert, no acute distress noted. HEENT: Normocephalic and atraumatic. PERRL. Cardiovascular: Regular rate and rhythm. S1-S2 present. Respiratory: Reduced entry. Abdomen: Bowel sounds present in all quadrants. Extremities: No edema noted. Neurologic: No focal deficits. LABS AND INVESTIGATIONS: WBC 26.56, hemoglobin 7.2, hematocrit 22.3, platelet count 203,000. BMP is unremarkable. These labs were drawn yesterday. ASSESSMENT AND PLAN: This is a 61-year-old, female with a past medical history as mentioned in the history of present illness that presented to the hospital with weakness, cough, and subjective fever. She is admitted and is being evaluated for acute hypoxic respiratory failure. She is currently on 2 L by nasal cannula. Also, right lower lobe pneumonia with parapneumonic effusion. Continue appropriate intravenous antibiotics. The patient does have a history of advanced ovarian cancer. Oncology is following and patterned fingersticks with sliding scale insulin for diabetes control. Further recommendations pending diagnostic studies. Thanks for the courtesy of this consult. Dictated by MARIA T Horvath for Rashel Gill MD cc: MARIA T Horvath MD Cesar Garcia-Rodriguez, MD
[2017-05-27] MEDS: DILAUDID IV PRN (15:36)
--- NOTE | 2017-05-27 15:46 | PROGRESS NOTE ---
DATE: 05/27/2017 SUBJECTIVE: The patient was admitted to the hospital with, in part, respiratory distress. Currently, she is being treated for a bibasilar pneumonia with vancomycin, meropenem, Levaquin, and micafungin. The micafungin was stopped yesterday. Today, the patient's creatinine is up to 1.6. The GFR is 39. I think part of patient's pulmonary problems is due to metastatic ovarian cancer. MEDICATIONS: As mentioned above, the patient is on Levaquin, meropenem, vancomycin, and micafungin has been discontinued yesterday. PHYSICAL EXAMINATION: Vital Signs: Temperature is 98.9 degrees, pulse 100, respirations 20, blood pressure 110/61. General: This is a chronically ill-appearing, middle- aged female. She is in no acute distress at this time. CV: Heart rate was rapid and most the time irregular. Lungs: There were bibasilar rales. Cardiovascular: Heart rate was irregular and rapid. Abdomen: Soft and nontender. Extremities: Legs were both edematous but not erythematous. LAB AND X-RAY: The patient's CBC today shows a white count of 27,230, hemoglobin 7.1, and platelet count 196,000. Creatinine is 1.6 which is up and GFR is 39 which is lower. The patient's blood cultures are sterile. Vancomycin was discontinued yesterday. ASSESSMENT AND PLAN: For today, I am going to keep going with the meropenem and Levaquin but I have stopped the vancomycin because of the patient's elevated creatinine. Patient's comorbidities are that she is older, she has metastatic ovarian cancer, diabetes, and the patient is getting chemotherapy as well. cc: MD Azam Hamilton MD MTDD
[2017-05-27] MEDS: NEURONTIN PO SCH (21:07)
[2017-05-27] MEDS: LEVAQUIN 750 MG/D5W 750 MG/150 ML IVPB IV SCH (22:33)
[2017-05-28] MEDS: TYLENOL PO PRN ×3 (01:37→18:09)
[2017-05-28] MEDS: DILAUDID IV PRN ×3 (02:21→16:36)
[2017-05-28] MEDS: DUONEB (A & A) INH SCH ×6 (03:25→23:24)
[2017-05-28] MEDS: MERREM 1 GM in NS 50 ML IV SCH ×3 (05:29→21:42)
[2017-05-28 06:01] LABS: BASO% 0.1 % (0.0-0.8); EOS# 0.39 X1000 (0.0-0.7); EOS% 1.3 % (0.0-10.0); HEMATOCRIT 21.7 % (37.0-47.0); HEMOGLOBIN 6.9 g/dL (12.0-16.0); IMM GRAN# 0.18 X1000 (0.0-0.04); IMM GRAN% 0.6 % (0.0-0.5); LYMPH# 1.59 X1000 (1.2-3.4); LYMPH% 5.2 % (20.5-51.1); MANUAL DIFF NEEDED? YES; MCH 27.5 PG (27-31); MCHC 31.8 g/dL (33-37); MCV 86.5 FL (81-99); MONO# 2.34 X1000 (0.11-0.59); MONO% 7.7 % (1.7-9.3); NEUT% 85.1 % (42.2-75.2); PLT 184 X1000 (130-400); RBC 2.51 XMIL (4.2-5.4)
[2017-05-28 06:19] LABS: POTASSIUM 4.7 mmol/L (3.5-5.1)
[2017-05-28] MEDS: HUMALOG SUBQ SCH ×4 (06:38→21:53)
[2017-05-28 07:15] LABS: BANDS 14 % (0-1); LYMPHS 4 % (21-51)
[2017-05-28 07:16] LABS: HYPOCHROM 3+; TARGET CELLS 1+
--- NOTE | 2017-05-28 08:13 | PROGRESS NOTE ---
DATE: 05/27/2017 SUBJECTIVE: Patient is still complaining of in the right suprasternal area because of persistent cough. She is still spiking fever. OBJECTIVE: Vital Signs: Temperature 102.4 degrees, heart rate 102, respiratory rate 20, blood pressure 120/60, O2 saturation 99% on 2 L nasal cannula. General Examination: This is a chronically ill-looking and frail, 61-year-old, female, looking older than her age, lying in bed, in no acute distress. HEENT: Head is normocephalic and atraumatic. Anicteric sclerae and pale conjunctivae. Mucous membranes moist. Neck: Supple. No JVD noted. No carotid bruits. No lymphadenopathy. No thyromegaly. Cardiovascular Examination: S1 and S2 heard. No murmurs, gallops, or rubs. Regular rate and rhythm. Respiratory Examination: Decreased breath sounds globally with some wheezing. Mild wheezing in both bases. Patient is not using any accessory muscles or having work of breathing. Abdomen: Soft, nontender to palpation. Bowel sounds present. No organomegaly. Extremities: No clubbing, cyanosis, or edema. Peripheral pulses present in both legs. Neurological Examination: Patient is alert and oriented x3. Moves 4 extremities. Cranial nerves 2-12 are grossly normal. Laboratory Data: White cell count 27.23, hemoglobin 7.1, hematocrit 21.9, platelets 196,000. BMP that shows creatinine 1.6. ASSESSMENT AND PLAN: 1. Acute hypoxemic respiratory failure. Patient is still requiring 2-3 L of oxygen per minute to keep his O2 saturation above 90s. We will continue with the same management. He is still complaining of shortness of breath. The patient is still on nebulizations with albuterol and Atrovent every 4 hours. 2. Right lower lobe pneumonia with parapneumonic effusion. We have consulted pulmonary to see what would be the next step in the management of this patient because apparently, those lesions do not only look as a pneumonia but also could be related to lung metastases from ovarian cancer. In any case, apparently, they are planning to do either bronchoscopy or thoracoscopy. At this point, we will continue with meropenem, vancomycin, and levofloxacin as per Dr. Jaimes's recommendation. Micafungin has been stopped. 3. Sepsis secondary to underlying pneumonia. Patient is still spiking fever. White cell count is still high, a little bit worse in comparing with yesterday. We will continue with the same antibiotic management. 4. Acute kidney injury. Creatinine continues to increase. It is probably related to vancomycin but considering that this patient had pneumonia and white cell count is extremely high, we prefer to keep him the vancomycin. 5. History of advanced ovarian cancer. Dr. Panchal from oncology has been consulted. We will follow their recommendations. 6. Diabetes mellitus type 2. Blood sugars are stable. 7. Overall, this patient is doing well. Transferred from [place] for evaluation by infectious disease and also pulmonary. workup. Unfortunately, this patient is not doing good and still having fever and on 3 really strong antibiotics. We will see what Dr. Jaimes and Dr. Gill have to say today. cc: Azam Gomez MD
[2017-05-28] MEDS: TAPAZOLE PO SCH ×2 (08:56→15:35)
[2017-05-28] MEDS: TESSALON PO SCH ×3 (08:57→21:53)
[2017-05-28] MEDS ORDERED: XYLOCAINE 2% ONE ×2 (11:06→11:52)
[2017-05-28] MEDS ORDERED: XYLOCAINE 1% ONE (11:51)
[2017-05-28] MEDS ORDERED: EPINEPHRINE ONE (11:51)
[2017-05-28] MEDS ORDERED: SODIUM CHLORIDE 0.9% 20 ML ONE (11:52)
[2017-05-28] MEDS ORDERED: XYLOCAINE 2% VISCOUS ONE (11:52)
[2017-05-28] MEDS ORDERED: ROBINUL ONE ×2 (12:21→12:29)
[2017-05-28] MEDS ORDERED: XYLOCAINE-MPF 2% ONE (12:21)
[2017-05-28] MEDS ORDERED: DIPRIVAN 1% ONE (12:21)
[2017-05-28] MEDS ORDERED: VERSED ONE (12:29)
--- NOTE | 2017-05-28 13:38 | OPERATIVE NOTE ---
PROCEDURE DATE: 05/28/2017 REFERRING PHYSICIAN: Dr. Etienne Paul. ONCOLOGIST: Dr. Renu Panchal. PROCEDURE: Bronchoscopy. INDICATION: Ovarian cancer with pulmonary nodules. DESCRIPTION OF PROCEDURE: Consent obtained. Conscious sedation administered via Anesthesia. Fluoroscopy scanning used for sampling. Left nostril approach. Normal vocal cord movements. All major segments visualized. There is right upper lobe anterior segment with about 20% to 30% blocking tumor infiltrating. We have taken brushings and biopsies from that area endobronchially and transbronchially. We have taken transbronchial biopsies from right middle lobe medial segment. Fluoroscopy scanning showed no pneumothorax; however, an official chest x-ray is also requested. Total blood loss was less than 3 mL. Occasional wheeze. Diluted epinephrine to minimize or prevent that. IMPRESSIONS: 1. Ovarian cancer with pulmonary nodules, likely metastasis. 2. Right upper lobe anterior segment 20% to 30% blocking tumor. PLAN: Awaiting cytology, microbiology, and pathology results. cc: MD Azam Hager MD
--- NOTE | 2017-05-28 14:08 | Diag Imaging Result Doc PS360 ---
EXAM: CHEST-PORTABLE HISTORY: post op bronchoscopy TECHNIQUE: AP upright portable at 1355 COMMENT: There are bilateral pleural effusions. There is alveolar opacity peripherally in the right upper lobe and behind the heart in the left lower lobe. There is fluid in the fissures on the right. Compared to 05/23/2017 there has been worsening of both the right upper lobe and left lower lobe opacities. There may also be more pleural fluid bilaterally. IMPRESSION: Pulmonary edema and/or pneumonia with pleural effusions. Electronically signed by Omer Barros 05/28/2017 2:06 PM
--- NOTE | 2017-05-28 16:25 | PROGRESS NOTE ---
DATE: 05/28/2017 SUBJECTIVE: Today Ms. Bills refers to be doing relatively fine. She just came from her bronchoscopy and continues to have persistent cough. OBJECTIVE: Vital signs: Blood pressure is 133/65, pulse of 130, respiration is 25, temperature is 101.0 degrees. General: Ms. Bills is a 61-year-old female. She is in bed, in mild respiratory distress. She feels warm to touch. HEENT: Mucosa is pink and moist. Anicteric. Acyanotic. Neck: Supple. Chest: Air entry is bilaterally reduced. Cardiovascular: Slightly tachycardic but no murmurs. Abdomen: Soft. Extremities: No pedal edema. 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 LABORATORY DATA: WBC is 30.30, hemoglobin is 6.9, platelet count is 184,000. Chemistry is reviewed, creatinine is 1.5. IMAGING: Bronchoscopy report actually shows an infiltrative right upper anterior segment tumor of about 20%-30% in the bronchioles. ASSESSMENT: 1. Acute hypoxemic respiratory failure. 2. Right lower lobe pneumonia with parapneumonic effusion. 3. Sepsis secondary to underlying pneumonia. 4. Acute kidney injury. 5. Right upper lung infiltrative endobronchial mass status post bronchoscopy with biopsies, we are still pending the report. 6. History of advanced ovarian cancer. Patient follows up with Dr. Panchal. 7. We are going to continue with the current antibiotics. I think eventually when you take Ms. Bills's condition into consideration her prognosis remains very dismal. We are still pending the pathology report on this endobronchial lesion. 8. Anemia. Patient's hemoglobin has dropped to 6.9 today. We are going to go ahead and transfuse her 2 PRBCs. cc: MD Azam Lemon MD
--- NOTE | 2017-05-28 17:08 | PROGRESS NOTE ---
DATE: 05/28/2017 PRESENT ILLNESS: The patient is being treated for presumed pneumonia. Unfortunately I think part of her infiltrate may well be due to metastatic ovarian cancer. MEDICATIONS: The patient currently is on a combination of meropenem and Levaquin. The vancomycin was discontinued yesterday because of the patient's rising creatinine. The patient has been on the antibiotics for the past 3 days. PHYSICAL EXAMINATION: Vital Signs: Temperature is 101.8 degrees, pulse 135, respirations 31, blood pressure 113/39. General: This is an ill-appearing, middle-aged female. She is in no acute distress. Lungs: Clear to auscultation. Cardiovascular: Heart rate is regular and rapid. Abdomen: Soft and not tender. Lab and x-ray. It was the noted in Dr. Gill's bronchoscopy that there was a right upper lobe blocking tumor almost certainly due to her prior ovarian cancer. Lungs: Clear to auscultation. Cardiovascular: Regular heart rate. Abdomen: Soft and nontender. LAB AND X-RAY: Chest x-ray shows bilateral opacities and pleural effusions. CBC shows a white count up to 30,300, hemoglobin is 6.9 and the platelet count is 184,000. Creatinine is 1.5. GFR is 42. Blood cultures are sterile. ASSESSMENT AND PLAN: For now I am going to continue with the patient's 2 antibiotics pending the results of lung biopsy performed yesterday. COMORBIDITIES: Include she is elderly. She has metastatic ovarian cancer, diabetes mellitus and the patient is receiving chemotherapy. cc: MD Azam Hamilton MD
[2017-05-28] MEDS ORDERED: NS 500 ML IV ONE (18:44)
[2017-05-28] MEDS: PRINIVIL PO SCH (21:53)
[2017-05-28] MEDS: TOPROL XL PO SCH (21:53)
[2017-05-28] MEDS: NEURONTIN PO SCH (21:53)
[2017-05-29] MEDS: LEVAQUIN 750 MG/D5W 750 MG/150 ML IVPB IV SCH (03:10)
[2017-05-29] MEDS: DUONEB (A & A) INH SCH ×6 (03:27→23:15)
[2017-05-29] MEDS: ZOFRAN IV PRN ×3 (04:35→21:28)
[2017-05-29] MEDS: DILAUDID IV PRN ×4 (04:42→21:27)
[2017-05-29] MEDS ORDERED: HYDROMET LIQUID PO ONE (05:24)
[2017-05-29] MEDS: MERREM 1 GM in NS 50 ML IV SCH ×3 (05:47→21:30)
[2017-05-29 06:09] LABS: BASO% 0.1 % (0.0-0.8); EOS% 0.3 % (0.0-10.0); HEMATOCRIT 31.3 % (37.0-47.0); HEMOGLOBIN 10.6 g/dL (12.0-16.0); IMM GRAN% 0.6 % (0.0-0.5); LYMPH# 1.92 X1000 (1.2-3.4); LYMPH% 5.7 % (20.5-51.1); MANUAL DIFF NEEDED? YES; MCH 28.7 PG (27-31); MCHC 33.9 g/dL (33-37); MCV 84.8 FL (81-99); MONO# 1.82 X1000 (0.11-0.59); MONO% 5.4 % (1.7-9.3); NEUT% 87.9 % (42.2-75.2); PLT 154 X1000 (130-400); RBC 3.69 XMIL (4.2-5.4)
[2017-05-29 06:11] LABS: CALCIUM 8.7 mg/dL (8.8-10.2); POTASSIUM 4.1 mmol/L (3.5-5.1)
[2017-05-29] MEDS: HUMALOG SUBQ SCH ×4 (07:42→21:28)
[2017-05-29 07:45] LABS: BANDS 4 % (0-1); EOS 2 % (1-10); HYPOCHROM 2+; LYMPHS 4 % (21-51); MONO 4 % (1-9)
[2017-05-29] MEDS: PRINIVIL PO SCH (08:54)
[2017-05-29] MEDS: TOPROL XL PO SCH (08:54)
[2017-05-29] MEDS: TESSALON PO SCH ×3 (08:54→17:31)
[2017-05-29] MEDS: TYLENOL PO PRN ×2 (12:28→23:53)
[2017-05-29] MEDS: ZYVOX 600 MG/D5W 600 MG/300 ML IVPB IV SCH ×2 (12:29→23:54)
--- NOTE | 2017-05-29 12:32 | PROGRESS NOTE ---
DATE: 05/29/2017 PRESENT ILLNESS: The patient has bilateral pulmonary infiltrates. It may be due to pneumonia. The patient had is known to have ovarian cancer and the infiltrates also could be due to metastatic ovarian cancer. The patient's creatinine was increasing, but now, since we stopped vancomycin, it is coming back down. MEDICATIONS: This is day 4 of treatment with meropenem and Levaquin. PHYSICAL EXAMINATION: Vital Signs: Temperature is 98.3 degrees, pulse 101, respirations 20, blood pressure 151/66. General: This is an ill-appearing middle-aged female who looks to be having respiratory difficulties. She is coughing and I can hear a few wheezes. Lungs: There were some expiratory wheezes. I did not hear any rales. Cardiovascular: Heart rate was regular and rapid. Abdomen: Soft and nontender. Ears, Nose, Throat: No drainage was noted from the nose or ears. LABORATORY AND X-RAY: There is no new x-ray today. The findings from the patient's bronchoscopy yesterday are still pending. The patient's CBC shows a white count of 33,400, hemoglobin 10.6, and platelet count 154,000. Creatinine is down to 1.4. GFR is 46. ASSESSMENT AND PLAN: I am going to add back coverage for methicillin-resistant Staphylococcus aureus with Zyvox given intravenously. COMORBIDITIES: The patient is elderly. She also has metastatic ovarian cancer, diabetes mellitus, and is receiving chemotherapy. cc: MD Azam Hamilton MD
--- NOTE | 2017-05-29 16:37 | PROGRESS NOTE ---
DATE: 05/29/2017 SUBJECTIVE: Today at encounter, the was air and 2 other advent[employer] members were there. Ms. Bills referred to be doing a little better. She continues to have some significant shortness of breath and pink-looking expectoration. OBJECTIVE: Vital Signs: Blood pressure is 146/69, pulse is 104, respirations 18, temperature 98.0. Of note, patient had a temperature of 102.0 degrees early this morning. General: Ms. Bills is a 61-year-old female. She is in bed. She is in mild respiratory distress. HEENT: Mucosa is pink and moist. Chest: Air entry is bilaterally reduced, more so to the right posterior lung field. Cardiovascular: Tachycardic. No murmurs. Abdomen: Soft extremities no pedal edema. 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 No focal neurological deficit. LABORATORY DATA: WBC went up to 33.40. Hemoglobin is 10.6. Platelet count is 154,000. There are 86% of bands. Chemistry is reviewed. Creatinine is down to 1.4 from 1.5 yesterday. ASSESSMENT: 1. Acute hypoxemic respiratory failure. 2. Right lower lobe pneumonia with parapneumonic effusion. 3. Sepsis secondary to underlying pneumonia. 4. Right upper lobe infiltrative endobronchial mass status post bronchoscopy with biopsy. We are still pending the biopsy report. 5. Acute kidney injury. 6. Advanced ovarian metastatic cancer. 7. Anemia. Patient is status post 2 packed red blood cell transfusions yesterday. Hemoglobin and hematocrit is a lot better. PLAN: In general, Ms. Bills looks relatively stable. Her white cell count has been a little high and Dr. Jaime has been added to her IV antibiotics to cover for MRSA. I have the understanding the patient has [facility] for at the time of discharge. Patient is being followed by ID, Pulmonary Medicine and Hematology-Oncology cc: MD Azam Lemon MD
--- NOTE | 2017-05-29 16:48 | PROGRESS NOTE ---
DATE: 05/29/2017 SUBJECTIVE: Ms. Negar menjivar reports that she feels tired today. She also states that she is not eating because the food is too salty. OBJECTIVE: Vital Signs: Temperature 98.3 degrees, heart rate 101, respirations 20, blood pressure 151/66, O2 saturation 100% on 2 L nasal cannula. LABORATORY: White blood cells 33.40, hemoglobin 10.6, hematocrit 31.3, platelet counts 154,000. Sodium 139, potassium 4.1. Chloride 102, CO2 26, BUN 12, creatinine 1.4, glucose 138. PHYSICAL EXAM: Cardiovascular: Tachycardia noted. Regular rhythm. Respiratory: Coarse breath sounds with wheezing and rhonchi bilaterally. Gastrointestinal: Abdomen is soft, nontender. Positive bowel sounds. Extremities: Trace edema bilateral extremities noted. ASSESSMENT AND PLAN: 1. Probable ovarian cancer. Patient is established and is a patient of Dr. Landers. CA-125 has previously been ordered. Will call the lab in regards to those results. 2. Pulmonary nodules, malignancy versus metastatic disease. The patient is now status post bronchoscopy with biopsies. We will follow up on those biopsies when they become available. 3. Fever. Patient afebrile currently. Continue to monitor temperature. 4. Acute hypoxic respiratory failure secondary to right lower lobe pneumonia and parapneumonic effusion. Continue IV antibiotics as per ID. 5. Sepsis secondary to the pneumonia. Continue IV antibiotics per Dr. Jaimes. 6. Anemia. This is improved after 2 units of packed red blood cells yesterday. Continue to monitor and transfuse p.r.n. Dictated by LIBERTY Devlin for Renu Panchal MD cc: MD Azam Walker MD I have seen and examined the patient and agree with the above A/P. Renu BARONE
[2017-05-29] MEDS: NEURONTIN PO SCH (21:28)
[2017-05-30] MEDS: LEVAQUIN 750 MG/D5W 750 MG/150 ML IVPB IV SCH (02:14)
[2017-05-30] MEDS: DILAUDID IV PRN ×6 (02:14→22:39)
[2017-05-30] MEDS: ZOFRAN IV PRN ×6 (02:14→22:40)
[2017-05-30] MEDS: DUONEB (A & A) INH SCH ×6 (03:35→23:03)
[2017-05-30 05:50] LABS: BASO% 0.1 % (0.0-0.8); EOS# 0.11 X1000 (0.0-0.7); EOS% 0.3 % (0.0-10.0); HEMATOCRIT 29.4 % (37.0-47.0); HEMOGLOBIN 9.8 g/dL (12.0-16.0); IMM GRAN# 0.23 X1000 (0.0-0.04); IMM GRAN% 0.7 % (0.0-0.5); LYMPH% 5.2 % (20.5-51.1); MANUAL DIFF NEEDED? YES; MCH 28.2 PG (27-31); MCHC 33.3 g/dL (33-37); MCV 84.7 FL (81-99); MONO# 2.24 X1000 (0.11-0.59); MONO% 6.9 % (1.7-9.3); MPV 10.7 FL (7.4-10.4); NEUT% 86.8 % (42.2-75.2); PLT 125 X1000 (130-400); RBC 3.47 XMIL (4.2-5.4)
[2017-05-30 06:07] LABS: BANDS 10 % (0-1); HYPOCHROM OCCASIONAL; LYMPHS 4 % (21-51); MONO 6 % (1-9)
[2017-05-30] MEDS: MERREM 1 GM in NS 50 ML IV SCH ×3 (06:17→22:40)
[2017-05-30 06:21] LABS: POTASSIUM 3.9 mmol/L (3.5-5.1)
[2017-05-30] MEDS: HUMALOG SUBQ SCH ×4 (06:22→21:00)
[2017-05-30] MEDS: TOPROL XL PO SCH (09:29)
[2017-05-30] MEDS: PRINIVIL PO SCH (09:29)
[2017-05-30] MEDS: TESSALON PO SCH ×3 (09:29→17:59)
[2017-05-30] MEDS: TYLENOL PO PRN (12:13)
[2017-05-30] MEDS: ZYVOX 600 MG/D5W 600 MG/300 ML IVPB IV SCH (12:13)
--- NOTE | 2017-05-30 14:04 | PROGRESS NOTE ---
DATE: 05/30/2017 PRESENT ILLNESS: The patient has bilateral pulmonary infiltrates. This could be due to pneumonia. Unfortunately it may be due to metastasis of the patient's known ovarian cancer. MEDICATIONS: This is day 5 of treatment with meropenem and Levaquin, and day 1 of treatment with Zyvox. PHYSICAL EXAMINATION: Vital Signs: Temperature is 99.8 degrees, pulse 81, respirations 20, blood pressure 168/74. Generally: This is a lethargic, ill-appearing, middle-aged female. Today she is not having any respiratory distress. Lungs: There were bilateral rhonchi. Cardiovascular: Heart rate is regular. Abdomen: Soft and nontender. Neurologic: The patient is somewhat lethargic. She does not answer questions. She kind of mumbles which I cannot understand. LAB AND X-RAY: The patient's CBC shows the white count is down to 32,610, hemoglobin 9.8, and platelet count 125,000. Creatinine is 1.3. The GFR is 50. Patient's bronchial washings are growing gram positive cocci. ASSESSMENT AND PLAN: I am going to continue with the patient's antibiotics, namely Zyvox, Levaquin, and meropenem pending further results. COMORBIDITIES: The patient is elderly. She has metastatic ovarian cancer, diabetes mellitus, and she is receiving chemotherapy. cc: Villa Jaimes MD
[2017-05-30] MEDS: NEURONTIN PO SCH (21:05)
[2017-05-31] MEDS: ZYVOX 600 MG/D5W 600 MG/300 ML IVPB IV SCH ×2 (00:04→12:46)
[2017-05-31] MEDS: TESSALON PO SCH ×4 (00:27→15:59)
[2017-05-31] MEDS: LEVAQUIN 750 MG/D5W 750 MG/150 ML IVPB IV SCH (02:46)
[2017-05-31] MEDS: ZOFRAN IV PRN ×3 (02:46→23:44)
[2017-05-31] MEDS: DILAUDID IV PRN ×6 (02:46→23:39)
[2017-05-31] MEDS: HALL'S COUGH LOZENGE MT PRN (02:46)
[2017-05-31] MEDS: DUONEB (A & A) INH SCH ×6 (03:45→22:49)
[2017-05-31 06:46] LABS: BASO% 0.1 % (0.0-0.8); EOS# 0.11 X1000 (0.0-0.7); EOS% 0.3 % (0.0-10.0); HEMATOCRIT 30.1 % (37.0-47.0); HEMOGLOBIN 10.1 g/dL (12.0-16.0); IMM GRAN# 0.29 X1000 (0.0-0.04); IMM GRAN% 0.8 % (0.0-0.5); LYMPH# 1.89 X1000 (1.2-3.4); MANUAL DIFF NEEDED? YES; MCH 28.9 PG (27-31); MCHC 33.6 g/dL (33-37); MONO# 2.58 X1000 (0.11-0.59); MONO% 6.9 % (1.7-9.3); MPV 10.6 FL (7.4-10.4); NEUT% 86.9 % (42.2-75.2); PLT 116 X1000 (130-400)
[2017-05-31] MEDS: HUMALOG SUBQ SCH ×4 (07:00→22:12)
[2017-05-31 07:07] LABS: BANDS 14 % (0-1); LYMPHS 4 % (21-51); MONO 6 % (1-9); POLYCHROM OCCASIONAL
[2017-05-31 07:10] LABS: CALCIUM 8.6 mg/dL (8.8-10.2); POTASSIUM 3.6 mmol/L (3.5-5.1)
--- NOTE | 2017-05-31 07:24 | Diag Imaging Result Doc PS360 ---
EXAM: CHEST-PORTABLE INDICATION: abnormal exam TECHNIQUE: One view COMPARISON: 05/28/2017 FINDINGS: The left PICC line is stable. Consolidations at the left lung base and right upper lobe are essentially stable given better inspiration. Bilateral pleural effusions are unchanged. No new consolidation is appreciated. Cardiac silhouette is stable. IMPRESSION: Essentially stable chest. Electronically signed by Gil Preciado 05/31/2017 7:22 AM
[2017-05-31] MEDS: MERREM 1 GM in NS 50 ML IV SCH ×3 (07:59→22:59)
[2017-05-31] MEDS: PRINIVIL PO SCH (08:37)
[2017-05-31] MEDS: TOPROL XL PO SCH (08:37)
--- NOTE | 2017-05-31 13:58 | PROGRESS NOTE ---
DATE: 05/31/2017 PRESENT ILLNESS: The patient has stable bilateral infiltrates and effusions. Despite this, the patient's white count continues to rise. The infiltrates could be due to infection. Also there is a possibility that they could be due to metastatic ovarian cancer. The patient denied having diarrhea. MEDICATIONS: This is day 6 of treatment with Levaquin and meropenem and day 2 treated with Zyvox. PHYSICAL EXAMINATION: Vital Signs: Temperature is 98.9 degrees, pulse 108, respirations 18, blood pressure 142/72. Generally: This is an ill-appearing middle-aged female. She does not to be in any acute distress. CV: Regular heart rate. Lungs: A few rales were heard on the right side. The left side was clear. Abdomen: Soft and nontender. Neurologic: Patient is awake. She can move her extremities. LAB AND X-RAY: The white count continues to rise. Today it is 37,540, hemoglobin 10.1, platelet count 116,000. Creatinine is 1.3. GFR is 50. The patient's bronchial washings are growing gram positive cocci. Chest x-ray shows stable bilateral infiltrates and effusions. ASSESSMENT AND PLAN: I am going to continue treating with the current antibiotics even though the white count is rising. She has been on 6 days of Levaquin and meropenem and only 2 days of Zyvox. Therefore I think it would be reasonable to keep going with the current plan. Hopefully the white count will start coming down. COMORBIDITIES: Include she is elderly, she has metastatic ovarian cancer, diabetes mellitus, and she is receiving chemotherapy. cc: Villa Jaimes MD
--- NOTE | 2017-05-31 16:00 | PROGRESS NOTE ---
DATE: 05/31/2017 Biopsy on Ms. Bills came back as chronic inflammation and focal fibrosis. There is no evidence of cancer with the biopsy that was obtained. However, it appears that during the bronchoscopy tumor was visualized, suspicious that there may still be cancer and we are getting a false- negative. Recommend considering a CT-guided biopsy some time next week. Otherwise, the patient needs to continue on her current course with IV antibiotics as per Infectious Disease. The patient again is a patient of Dr. Landers. Will go ahead and reorder the CA125 as it appears to have previously been canceled. Will sign off for the weekend and be available as needed. Dictated by LIBERTY Devlin for Renu Panchal MD cc: Renu Panchal MD
--- NOTE | 2017-05-31 17:06 | PROGRESS NOTE ---
DATE: 05/31/2017 SUBJECTIVE: Today Ms. Bills referred to be doing a little better. Continues to be significantly sick looking. OBJECTIVE: Vitals: Blood pressure is 153/62, pulse of 101, respirations 20, temperature 99.1 degrees. General: Ms. Bills is a 61-year-old female. She is in bed, mild respiratory distress. HEENT: Mucosa is slightly pale but anicteric, acyanotic. Neck: Supple. Chest: Air entry bilaterally reduced more so to the right posterior lung field. There is bilateral posterior crepitations. Cardiovascular: Tachycardic, no murmur. No rubs. Abdomen: Soft, nontender. Extremities: No pedal edema. 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 There is no focal neurological deficit and she follows commands. LABORATORY DATA: WBC is 37.54, hemoglobin is 10.1, platelet count is 116,000. Chemistry is reviewed. Sodium is 134, potassium is 3.6, chloride is 95, bicarb is 23, creatinine is 1.3. CURRENT MEDICATIONS: Include levofloxacin 750 IV he had daily, Zyvox 600 mg IV b.i.d., meropenem 1 g q.8. DATA: The bronchoscopy report the pathology report shows there is chronic inflammation and focal fibrosis, no malignancy was identified. ASSESSMENT: 1. Acute hypoxemic respiratory failure. 2. Right lower lobe pneumonia with parapneumonic effusion. 3. Sepsis secondary to pneumonia. 4. Right upper lobe endobronchial mass status post bronchoscopy. So far the pathology report shows chronic inflammation with fibrosis but there was no any malignancy. 5. Advanced ovarian metastatic cancer. 6. Anemia secondary to chronic illness. Patient is status post 2 packed red blood cell transfusion. Hemoglobin and hematocrit continues to be stable. 7. Acute kidney injury stable. PLAN: So in general I think Ms. Bills is stable but continues to be very sick. She has significant deconditioning and protein calorie malnutrition. She also has an underlying metastatic ovarian malignancy. So far the biopsy report from the endoscopy has been negative so going to continue aggressively treating this pneumonia with recommendations from Dr. Jaimes. cc: Etienne Paul MD
[2017-05-31] MEDS: NEURONTIN PO SCH (20:14)
[2017-06-01] MEDS: ZYVOX 600 MG/D5W 600 MG/300 ML IVPB IV SCH ×2 (00:50→11:45)
[2017-06-01] MEDS: LEVAQUIN 750 MG/D5W 750 MG/150 ML IVPB IV SCH (01:00)
[2017-06-01] MEDS: DILAUDID IV PRN ×6 (02:54→22:30)
[2017-06-01] MEDS: DUONEB (A & A) INH SCH ×6 (03:11→23:13)
[2017-06-01] MEDS: MERREM 1 GM in NS 50 ML IV SCH (05:41)
[2017-06-01 05:42] LABS: BASO% 0.1 % (0.0-0.8); EOS# 0.17 X1000 (0.0-0.7); EOS% 0.5 % (0.0-10.0); HEMOGLOBIN 9.5 g/dL (12.0-16.0); IMM GRAN# 0.25 X1000 (0.0-0.04); IMM GRAN% 0.7 % (0.0-0.5); LYMPH# 1.79 X1000 (1.2-3.4); LYMPH% 5.2 % (20.5-51.1); MANUAL DIFF NEEDED? YES; MCH 28.3 PG (27-31); MCHC 32.8 g/dL (33-37); MCV 86.3 FL (81-99); MONO# 2.16 X1000 (0.11-0.59); MONO% 6.3 % (1.7-9.3); MPV 10.7 FL (7.4-10.4); NEUT% 87.2 % (42.2-75.2); PLT 100 X1000 (130-400); RBC 3.36 XMIL (4.2-5.4)
[2017-06-01] MEDS: ZOFRAN IV PRN ×4 (05:47→22:29)
[2017-06-01 06:00] LABS: CALCIUM 8.9 mg/dL (8.8-10.2); POTASSIUM 3.7 mmol/L (3.5-5.1)
[2017-06-01 06:30] LABS: BANDS 4 % (0-1); LYMPHS 5 % (21-51); MONO 10 % (1-9)
[2017-06-01 06:31] LABS: HYPOCHROM 1+; TARGET CELLS OCCASIONAL
[2017-06-01] MEDS: HUMALOG SUBQ SCH ×4 (07:04→20:38)
[2017-06-01] MEDS: TESSALON PO SCH ×5 (08:34→18:08)
[2017-06-01] MEDS: PRINIVIL PO SCH (08:34)
[2017-06-01] MEDS: TOPROL XL PO SCH (08:34)
[2017-06-01] MEDS ORDERED: PRINIVIL PO SCH (10:43)
--- NOTE | 2017-06-01 11:27 | PROGRESS NOTE ---
DATE: 06/01/2017 SUBJECTIVE: Today Ms. Bills refers to be doing relatively fine. Still refers that she is generally weak and she is sore all over. OBJECTIVE: Vital signs: Blood pressure is 99/74, pulse is 114, respirations 25 , temperature 97.7 degrees. General: Ms. Bills is a 61-year-old female. She is in bed, mild respiratory distress. HEENT: Mucosa is pink and moist. Anicteric. Acyanotic. Neck: Supple. Chest: Air entry is bilaterally reduced. There is diffuse bilateral crepitations, more so on the right posterior lung lyons. Cardiovascular: Regular rate and rhythm. Tachycardic. Abdomen: Soft, nontender. Extremities: No pedal edema. BENCH ASSEMBLY INSPECTOR: Patient is awake and alert. No focal neurologic deficits. LABORATORY DATA: WBC is 34.31, hemoglobin is 9.5, platelet count is 100,000. There is 4% bands on peripheral smear. Chemistry is reviewed. Creatinine is 1.2, which is slightly improved from yesterday. Microbiology shows bronchial washing as VRE. There is no chest x-ray done this morning. ASSESSMENT: 1. Acute hypoxemic respiratory failure. 2. Sepsis secondary to pneumonia. 3. Right lower lobe pneumonia with parapneumonic effusion. Bronchial washing is positive for VRE. 4. Right upper lobe endobronchial mass, status post bronchoscopy. So far, pathology report shows chronic inflammation with fibrosis but no signs of malignancy. 5. Advanced ovarian cancer. 6. Anemia secondary to chronic illness. Patient is status post 2 packed red blood cell transfusion. Hemoglobin and hematocrit is stable. 7. Acute kidney injury, stable. 8. Hypertension. I general Ms. Bills is stable. White cell is still elevated. The endobronchial/tracheal washing shows the culture is positive for VRE. I have discussed this with Dr. Jaimes this morning, he is not solar sales consultant but was gracious enough to attend to me. He recommends to discontinue the levofloxacin and the meropenem and continue only the Zyvox. The patient refers that she feels slightly weak. In terms of the blood pressure , the patient's blood pressure is actually on the low end, so I will discontinue her lisinopril for today and observe her blood pressure. cc: MD LIZABETH Lemon
[2017-06-01] MEDS: NEURONTIN PO SCH (20:38)
[2017-06-01] MEDS: HALL'S COUGH LOZENGE MT PRN (22:30)
[2017-06-02] MEDS: ZYVOX 600 MG/D5W 600 MG/300 ML IVPB IV SCH ×2 (00:51→11:46)
[2017-06-02] MEDS: DUONEB (A & A) INH SCH ×6 (03:01→23:22)
[2017-06-02] MEDS: DILAUDID IV PRN ×6 (03:23→23:08)
[2017-06-02] MEDS: HALL'S COUGH LOZENGE MT PRN (03:26)
[2017-06-02 06:24] LABS: BASO% 0.1 % (0.0-0.8); EOS# 0.18 X1000 (0.0-0.7); EOS% 0.5 % (0.0-10.0); HEMOGLOBIN 9.8 g/dL (12.0-16.0); IMM GRAN# 0.21 X1000 (0.0-0.04); IMM GRAN% 0.6 % (0.0-0.5); LYMPH# 1.87 X1000 (1.2-3.4); LYMPH% 5.5 % (20.5-51.1); MANUAL DIFF NEEDED? YES; MCH 28.6 PG (27-31); MCHC 32.7 g/dL (33-37); MCV 87.5 FL (81-99); MONO% 5.9 % (1.7-9.3); MPV 9.5 FL (7.4-10.4); NEUT% 87.4 % (42.2-75.2); PLT 84 X1000 (130-400); RBC 3.43 XMIL (4.2-5.4)
[2017-06-02 06:34] LABS: CALCIUM 9.1 mg/dL (8.8-10.2); POTASSIUM 4.3 mmol/L (3.5-5.1)
[2017-06-02] MEDS: HUMALOG SUBQ SCH ×4 (07:07→23:07)
--- NOTE | 2017-06-02 07:11 | Diag Imaging Result Doc PS360 ---
EXAM: CHEST-PORTABLE HISTORY: dyspnea TECHNIQUE: Portable COMPARISON: 05/31/2017 FINDINGS: No change in the left-sided PICC line. There are bilateral infiltrates. Heart is not enlarged. There are small bilateral pleural effusions. There is also basilar atelectasis. The overall appearance is quite similar to that of the prior exam. IMPRESSION: No interval improvement. Electronically signed by Stan Tristan 06/02/2017 7:09 AM
[2017-06-02 07:49] LABS: BANDS 2 % (0-1); EOS 1 % (1-10); LYMPHS 6 % (21-51); MONO 5 % (1-9)
[2017-06-02 07:51] LABS: TARGET CELLS OCCASIONAL
[2017-06-02] MEDS: TESSALON PO SCH ×3 (09:46→19:26)
[2017-06-02] MEDS: TOPROL XL PO SCH (09:46)
[2017-06-02] MEDS: ZOFRAN IV PRN (11:46)
--- NOTE | 2017-06-02 17:06 | PROGRESS NOTE ---
DATE: 06/02/2017 SUBJECTIVE: Today Ms. Bills refers to be doing just a little better but in general she still remained some remarkably weak. OBJECTIVE: Vital signs: Blood pressure is 154/61, pulse of 115, respiration is 22, temperature is 97.8 degrees. General: Ms. Bills is a 61-year-old female. She looks chronically ill, she is in bed, mild respiratory distress. HEENT: Mucosa is pink and moist. Chest: Air entry is bilaterally reduced. There are some diffuse crepitations in the posterior lung lyons. Cardiovascular: Regular rate and rhythm. Abdomen: Soft, nontender. Extremities: No pedal edema. PERCUSSION INSTRUMENT TUNER: Patient is awake and alert and oriented x4. LABORATORY DATA: WBC is slightly down to 33.84, hemoglobin is 9.8, platelet count is 84,000, there is only 2% of bands on peripheral smear. Chemistry is reviewed. Completely normal. Creatinine is 1.3. RADIOLOGY: A chest x-ray done this morning shows the small bilateral pleural effusion. There are stable infiltrates bilateral, there is also bibasilar atelectasis, no interval improvement. ASSESSMENT: 1. Acute hypoxemic respiratory failure secondary to pneumonia. 2. Sepsis due to pneumonia. 3. Vancomycin-resistant enterococci induced right lower lobe pneumonia with parapneumonic effusion. The patient is getting linezolid 4. Right upper lobe endobronchial mass status post bronchoscopy, so far pathology report only shows chronic inflammation with fibrosis but no signs of malignancy. 5. Advanced ovarian malignancy. Patient follows up with Hematology/Oncology in [place]. 6. Anemia of chronic illness. Patient is status post 2 packed red blood cell transfusion. Hemoglobin and hematocrit is stable. 7. Hypertension stable. 8. Acute kidney injury slightly improved. 9. Protein calorie malnutrition noted. In general Ms. Bills is progressively getting better. She still continues to have significant cough and sputum production. She has a vancomycin-resistant enterococci pneumonia which she is currently on linezolid. Today is day 4 of therapy with linezolid. cc: Etienne Paul MD
[2017-06-02] MEDS: NEURONTIN PO SCH ×2 (19:26→21:19)
[2017-06-03] MEDS: ZYVOX 600 MG/D5W 600 MG/300 ML IVPB IV SCH ×2 (01:00→11:27)
[2017-06-03] MEDS: DUONEB (A & A) INH SCH ×6 (03:41→23:34)
[2017-06-03] MEDS: TYLENOL PO PRN (03:47)
[2017-06-03] MEDS: DILAUDID IV PRN ×6 (03:47→19:18)
[2017-06-03] MEDS: ZOFRAN IV PRN ×3 (04:17→15:55)
[2017-06-03] MEDS: HUMALOG SUBQ SCH ×5 (06:06→21:11)
[2017-06-03 06:20] LABS: BASO% 0.2 % (0.0-0.8); EOS# 0.37 X1000 (0.0-0.7); EOS% 1.2 % (0.0-10.0); HEMATOCRIT 28.2 % (37.0-47.0); HEMOGLOBIN 9.2 g/dL (12.0-16.0); IMM GRAN# 0.21 X1000 (0.0-0.04); IMM GRAN% 0.7 % (0.0-0.5); LYMPH# 1.89 X1000 (1.2-3.4); LYMPH% 5.9 % (20.5-51.1); MANUAL DIFF NEEDED? YES; MCH 28.4 PG (27-31); MCHC 32.6 g/dL (33-37); MONO% 5.9 % (1.7-9.3); MPV 10.5 FL (7.4-10.4); NEUT% 86.1 % (42.2-75.2); PLT 74 X1000 (130-400); RBC 3.24 XMIL (4.2-5.4)
[2017-06-03 06:53] LABS: CALCIUM 8.4 mg/dL (8.8-10.2); POTASSIUM 3.3 mmol/L (3.5-5.1)
[2017-06-03 07:18] LABS: BANDS 6 % (0-1); LYMPHS 2 % (21-51); MONO 2 % (1-9)
[2017-06-03 07:19] LABS: HYPOCHROM 2+
[2017-06-03] MEDS: TOPROL XL PO SCH (08:00)
[2017-06-03] MEDS: TESSALON PO SCH ×3 (08:00→17:23)
--- NOTE | 2017-06-03 14:17 | Diag Imaging Result Doc PS360 ---
EXAM: CT THORAX W/O CONTRAST HISTORY: persistent pneumonia TECHNIQUE: CT of the chest without contrast with dose reduction (clarity.) COMMENT: There are bilateral pleural effusions. There appears to be some loculation and fibrosis on the right. This was also the case of the time the previous study of 05/25/2017. The appearance of the mediastinum has not changed significantly since the previous study. There is supraclavicular adenopathy bilaterally, most notably on the left side there is a node anterior to the left scalenus anticus which measures 14 mm in transverse dimension compared to 10.8 mm previously. Numerous pulmonary nodules are present bilaterally. These appear to be largely a increased in size and number since the previous study. There is in particular a nodule present in the right middle lobe on image 56 which measures almost 6 mm on the current study but slightly over 3 mm on the previous. This rate of increase would be more consistent with septic emboli than a metastatic process. There is, however, a considerable difference in the inspiration and technique between the two examinations. Considerable compressive atelectasis is present bilaterally due to the effusions. The regional skeleton is stable in appearance. IMPRESSION: Worsening supraclavicular adenopathy and diffuse pulmonary nodules. Possibility of septic emboli and reactive adenopathy, and addition to the pleural effusions is suggested. Given the short time course of nine days, such a perceptible change would be more consistent with inflammatory or infectious disease than metastatic disease. Electronically signed by Omer Barros 06/03/2017 2:14 PM
--- NOTE | 2017-06-03 17:35 | PROGRESS NOTE ---
DATE: 06/03/2017 PRESENT ILLNESS: The patient has bilateral pulmonary infiltrates. A lung biopsy showed inflammation, but no evidence of metastatic cancer. The patient's only culture from the lungs came on the bronchial washings which has grown vancomycin-resistant Enterococcus. MEDICATIONS: The patient previously was on Levaquin and meropenem and Zyvox. Now she is just on Zyvox because of the bronchial washings which grew vancomycin resistant enterococcus. This is day 5 of treatment with Zyvox. PHYSICAL EXAMINATION: Vital signs: Temperature is 98.9 degrees, pulse 98, respirations 20, blood pressure 138/59. Generally: This is an ill-appearing, middle-aged female. She is in no acute distress, but she does not feel good. Lungs: Scattered rhonchi bilaterally. Cardiovascular: Heart rate is regular. Ear/nose/throat: No drainage was noted from the nose or ears. Abdomen: Soft and nontender. LABORATORY AND X-RAY: Today the CBC shows a white count of 32,020, hemoglobin 9.2, and platelet count 74,000. Creatinine is 1.8. GFR is 34. Chest x-ray shows bilateral infiltrates. Bronchial washings grew vancomycin resistant enterococcus. ASSESSMENT AND PLAN: 1. I plan to continue with Zyvox for the patient's probable vancomycin-resistant Enterococcus. A CT scan has been ordered today. 2. Comorbidities include she is elderly. She has metastatic ovarian cancer, although we could not prove that it was in the lungs. The patient also has diabetes mellitus and is receiving chemotherapy. cc: Villa Jaimes MD
--- NOTE | 2017-06-03 18:23 | PROGRESS NOTE ---
DATE: 06/03/2017 SUBJECTIVE: Today, Ms. Bills refers to be feeling pretty much the same, but she does still have some shortness of breath, generalized pains and coughing with some blood- stained expectoration. OBJECTIVE: Vital signs: Blood pressure is 138/59, pulse of 90, respirations 20 , temperature 98.9 degrees. General: Ms. Bills is a 61-year-old female. She is in bed. She looks chronically sick, malnourished. HEENT: Mucosa is pink and moist. Anicteric. Acyanotic. Neck: Neck is supple. Chest: Air entry is bilaterally reduced. There are some posterior crepitations in the lung lyons. Cardiovascular: Regular rate and rhythm. I did not appreciate any murmurs. Abdomen: Soft, nontender. Extremities: No pedal edema. LEAD COOK: Patient is awake alert and oriented, follows commands. LABORATORY DATA: WBC is 32.02, hemoglobin is 9.2, platelet count of 74,000. There is 6% of bands on the peripheral smear. Sodium is 136, potassium is 3.3, chloride is 96, bicarb is 25, creatinine is 1.8. DIAGNOSTIC STUDIES: A CT scan of the chest which was done today shows worsening supraclavicular adenopathy and diffuse pulmonary nodules, possibility of septic emboli and reactive adenopathy in addition to pleural effusions. ASSESSMENT: 1. Acute hypoxemic respiratory failure secondary to pneumonia and pleural effusions. The patient continues to have significant respiratory distress. She is currently using 4 -5 L of oxygen to maintain adequate saturation. 2. Sepsis secondary to underlying Vancomycin-resistant enterococci induced pneumonia with possible parapneumonic effusion. We repeated a CT scan this morning. It looks like the effusions are getting worse and there are now multiple nodules in both lungs which Radiology thinks it is more possible septic emboli than anything and taking into consideration the bug in question, we will do an echocardiogram to check on the valves to see if there are any vegetations. 3. Right upper lobe endobronchial mass status post bronchoscopy. So far the pathology only shows chronic inflammation with fibrosis, but no signs of malignancy. This does not rule out the possibility of an underlying malignancy since patient seems to be having worsening supraclavicular lymphadenopathies and multiple bilateral lung nodules. 4. Advanced ovarian malignancy. Patient follows up with an oncologist in [place]. 5. Anemia of chronic illness. Hemoglobin and hematocrit is stable. Patient got 2 PRBC transfusions early on during the hospital stay. 6. Acute kidney injury. This is improved slightly, but today creatinine went up to 1.8, patient is having a lot of fluid issues in the lungs, so I am very reluctant to put her on any IV fluids. I would repeat the renal functions tomorrow. If it continues to get any worse, we will involve our Renal Team. 7. Protein calorie malnutrition, noted. PLAN: 1. In general, Ms. Bills has been in hospital for the past 11 days, initially was in [place] and then transferred over here. She has underlying an metastatic ovarian cancer, but she has been in and out of this hospital about 3 times, mainly because of pneumonia which has not completely resolved. We did a bronchoscopy that was nonconclusive. A recent CT scan has shown worsening of pleural effusion and bilateral nodules. Patient bronchial washing is positive for enterococcus faecalis. She is currently on Zyvox; however, her white count continues to be high and clinically she has not shown any remarkable improvement. We did a repeat CT scan which shows worsening. There is the concern that she has septic emboli , so I will request an echo to look at the valves. I have also put in an order for a thoracentesis to be done. Of course, if that shows a complicated parapneumonic effusion, then we will need to address it probably with surgery. The patient is being followed up by Hematology/Oncology, Dr. Panchal, Infectious Disease, Dr. Jaimes and also Pulmonary Medicine, Dr. Gill and Dr. Suresh. I think Ms. Bills is going to be here in the hospital for a while and her poor prognosis continues to be remarkably dismal. cc: Etienne Paul MD [facility]ENTERCheng
[2017-06-03] MEDS: NEURONTIN PO SCH (21:10)
[2017-06-04] MEDS: DILAUDID IV PRN ×5 (01:37→21:57)
[2017-06-04] MEDS: ZYVOX 600 MG/D5W 600 MG/300 ML IVPB IV SCH ×3 (01:38→23:47)
[2017-06-04] MEDS: ZOFRAN IV PRN ×3 (01:38→18:43)
[2017-06-04] MEDS: DUONEB (A & A) INH SCH ×6 (03:25→22:55)
[2017-06-04] MEDS: HUMALOG SUBQ SCH ×4 (06:14→21:46)
[2017-06-04 06:29] LABS: BASO% 0.2 % (0.0-0.8); EOS# 0.33 X1000 (0.0-0.7); HEMOGLOBIN 9.7 g/dL (12.0-16.0); IMM GRAN# 0.22 X1000 (0.0-0.04); IMM GRAN% 0.7 % (0.0-0.5); LYMPH# 2.49 X1000 (1.2-3.4); LYMPH% 7.4 % (20.5-51.1); MANUAL DIFF NEEDED? NO; MCHC 32.3 g/dL (33-37); MCV 86.7 FL (81-99); MONO% 5.4 % (1.7-9.3); MPV 10.8 FL (7.4-10.4); NEUT% 85.3 % (42.2-75.2); PLT 65 X1000 (130-400); RBC 3.46 XMIL (4.2-5.4)
[2017-06-04 06:46] LABS: CALCIUM 8.7 mg/dL (8.8-10.2); POTASSIUM 3.9 mmol/L (3.5-5.1)
[2017-06-04 07:30] LABS: INR 1.13
[2017-06-04 07:55] LABS: PTT 41.1 Seconds (22.0-36.0)
--- NOTE | 2017-06-04 09:33 | Diag Imaging Result Doc PS360 ---
EXAM: CHEST-2 VIEWS HISTORY: POST THORACENTESIS TECHNIQUE: Inspiratory expiratory chest following left thoracentesis. COMMENT: There is better expansion of the left lung than on the previous study of 06/02/2017. There is still a loculated and probably organized effusion on the right with atelectasis and pneumonia. There is atelectasis versus pneumonia in the lingula and left lower lobe. There are scattered pulmonary nodules. There is a PICC line on the left with its tip in the spur vena cava. IMPRESSION: No evidence of pneumothorax. Electronically signed by Omer Barros 06/04/2017 9:30 AM
--- NOTE | 2017-06-04 09:49 | Diag Imaging Result Doc PS360 ---
EXAM: THORACENTESIS W/IMAGE GUIDANCE HISTORY: bilateral pleural effusion TECHNIQUE: Ultrasound-guided left thoracentesis. COMMENT: Both the pleural fluid collections were evaluated with ultrasonography prior to the procedure. The right side is almost totally organized and loculated. The left side was subsequently chosen for the drainage. Thoracentesis on the right which was not the likely to produce any symptomatic relief to the patient but may be performed an later date for diagnostic purposes. The benefits and risks of the procedure were discussed with the patient including the possibility of pneumothorax, bleeding, infection, or reaction to lidocaine and she agreed. Following sterile preparation the skin and administration 1% lidocaine to the skin and deeper soft tissues, the thoracentesis catheter was placed posteriorly and slightly laterally into the left pleural space. 1300 mL of turbid yellowish fluid was drained and sent to the laboratory for cytology and bacteriologic studies. The patient tolerated the procedure well and there are no immediate complications. IMPRESSION: Successful left thoracentesis. Electronically signed by Omer Barros 06/04/2017 9:46 AM
[2017-06-04] MEDS: MAXIPIME 2 GM/NS 2 GM/100 ML IVPB IV SCH ×2 (10:04→21:44)
[2017-06-04] MEDS: TOPROL XL PO SCH (10:27)
[2017-06-04] MEDS: TESSALON PO SCH ×3 (10:27→16:55)
[2017-06-04 10:35] LABS: SPECIMEN PLEURAL FLUID
[2017-06-04 10:37] LABS: DIFF NEEDED? YES; WBC BF 990 /cumm
[2017-06-04 10:41] LABS: MONOS 30 %; POLYS 70 %
[2017-06-04 10:57] LABS: TOTAL PROT BODY FLUID 3.8 g/dL
--- NOTE | 2017-06-04 14:28 | PROGRESS NOTE ---
DATE: 06/04/2017 PRESENT ILLNESS: The patient has worsening adenopathy with pulmonary nodules. A previous lung biopsy showed inflammation, but not cancer. The patient's culture from the bronchial washings grew a vancomycin-resistant Enterococcus. MEDICATIONS: Patient currently is on Zyvox as a single agent. This is day 6 of treatment with Zyvox. PHYSICAL EXAMINATION: Vital Signs: Temperature is 97.9 degrees, pulse 108, respirations 20, blood pressure 127/59. General: This is an ill-appearing, middle-aged female. She is in no acute distress. Lungs: Clear to auscultation. Cardiovascular: Regular heart rate. Abdomen: Soft and nontender. Extremities: The patient's legs are not tender. There is a small amount of edema present. LAB AND X-RAY: CT scan of the chest showed worsening adenopathy and pulmonary nodules as mentioned above. There is no new CBC or there is no new lab for today. The patient's CT scan is as mentioned above. ASSESSMENT AND PLAN: I am going to add cefepime to the patient to Zyvox. The patient has a regular rash which is not hives to penicillin; therefore, I think it will be safe to give her cefepime I am also ordering that the nurse observe the patient during the first dose of cefepime. Also, I have ordered an echocardiogram because the patient's CAT scan brought up the possibility of septic emboli. Therefore, I would be looking for possible endocarditis. The patient's comorbidities include she is elderly. She has metastatic ovarian cancer. She now may be having septic emboli. The radiologist said that the fact that the nodules increase so quickly, as well as the adenopathy, it would be more likely an infection rather than a malignancy. COMORBIDITIES: The patient's comorbidities include she is elderly and, as previously mentioned, she has metastatic ovarian cancer. The patient also is a diabetic and is on chemotherapy. cc: Villa Jaimes MD
--- NOTE | 2017-06-04 16:27 | ECHO REPORT ---
ORDER DATE: 06/03/2017 INDICATION FOR THE STUDY: Asthma, diabetes, enterococcus pneumonia. FINDINGS: This is an extremely difficult study with very poor quality images 1. The valvular structures were very difficult to visualize on 2-dimensional imaging. There is mild tricuspid regurgitation. No evidence of mitral prolapse. The aortic valve was very poorly visualized. 2. There is likely normal LV systolic function although an accurate estimate cannot be provided. It is likely greater than 50%. Wall motion analysis cannot be performed. 3. Right heart structures were very poorly visualized. 4. Accurate wall thickness measurements and chamber size measurements could not be performed secondary to the poor quality images. 5. There is no pericardial effusion identified. 6. The patient's heart rate was in the low 100s during the course of the study. cc: MD Etienne Torres MD
[2017-06-04] MEDS: NEURONTIN PO SCH (21:44)
[2017-06-05] MEDS: DUONEB (A & A) INH SCH ×6 (02:55→23:15)
--- NOTE | 2017-06-05 05:57 | PROGRESS NOTE ---
DATE: 06/04/2017 SUBJECTIVE: Blood pressure 127/89, heart rate 91, respiratory rate 12, temperature 98.5 degrees 96% on 3 L.Cardiovascular: Regular rate and rhythm. Pulmonary: Bilateral breath sounds. Diminished at the bases. GI: Soft, nontender, nondistended. Bowel sounds are positive. LABORATORY DATA: White count 33, hemoglobin 9 and hematocrit 30, platelets 65. 133, creatinine 1.4. ASSESSMENT AND PLAN: 1. Acute hypoxic respiratory failure secondary to pleural effusions, possible pneumonia and malignancy Continue to follow closely. Wean oxygen. 2. Vancomycin-resistant enterococcus pneumonia. She got thoracentesis today. She is on appropriate antibiotics. We will follow closely. 3. Right upper lobe mass. No evidence of malignancy but she does have mediastinal lymphadenopathy. 4. Ovarian cancer. Aware of diagnosis. We will continue to follow closely. 5. Anemia, status post transfusion x2 units. We will continue to monitor. No need for transfusion at this point. 6. Acute kidney injury. Creatinine has improved. We will continue to follow. Worried about fluid resuscitation because of 3rd spacing. 7. Pleural effusion status post thoracentesis. We will continue to monitor. Currently, she is on We will continue to monitor very closely. She is on cefepime that was started today. Zyvox has been for 7 days. We will continue to monitor very closely. DISPOSITION: Family would prefer to get her home so we will continue to follow, and hopefully discharge in the next 2 days. cc: Mark Knapp MD
[2017-06-05] MEDS: HUMALOG SUBQ SCH ×4 (07:29→21:46)
[2017-06-05] MEDS: DILAUDID IV PRN ×4 (08:28→23:26)
[2017-06-05] MEDS: ZOFRAN IV PRN ×4 (08:28→21:44)
[2017-06-05] MEDS: TOPROL XL PO SCH (08:28)
[2017-06-05] MEDS: TESSALON PO SCH ×3 (08:28→16:56)
[2017-06-05 11:19] LABS: BASO% 0.1 % (0.0-0.8); EOS# 0.13 X1000 (0.0-0.7); EOS% 0.6 % (0.0-10.0); HEMATOCRIT 27.5 % (37.0-47.0); HEMOGLOBIN 9.1 g/dL (12.0-16.0); IMM GRAN% 0.5 % (0.0-0.5); LYMPH# 1.02 X1000 (1.2-3.4); LYMPH% 4.7 % (20.5-51.1); MANUAL DIFF NEEDED? YES; MCH 28.3 PG (27-31); MCHC 33.1 g/dL (33-37); MCV 85.4 FL (81-99); MONO% 3.7 % (1.7-9.3); MPV 10.1 FL (7.4-10.4); NEUT% 90.4 % (42.2-75.2); PLT 50 X1000 (130-400); RBC 3.22 XMIL (4.2-5.4)
[2017-06-05 11:27] LABS: CALCIUM 8.2 mg/dL (8.8-10.2); POTASSIUM 3.8 mmol/L (3.5-5.1)
[2017-06-05 11:48] LABS: BANDS 4 % (0-1); HYPOCHROM 2+; LYMPHS 4 % (21-51); MONO 2 % (1-9)
[2017-06-05] MEDS: MAXIPIME 2 GM/NS 2 GM/100 ML IVPB IV SCH ×2 (12:25→23:21)
[2017-06-05] MEDS: ZYVOX 600 MG/D5W 600 MG/300 ML IVPB IV SCH (12:25)
--- NOTE | 2017-06-05 13:46 | PROGRESS NOTE ---
DATE: 06/05/2017 PRESENT ILLNESS: The patient on her x-ray continues to show bilateral pneumonia but clinically today she looks much better. She said she is breathing easier and she is smiling a little bit. MEDICATIONS: This is day 7 of treatment with Zyvox and day 1 of treatment with cefepime. PHYSICAL EXAMINATION: Vital Signs: Temperature is 98.6 degrees, pulse 102, respirations 18, blood pressure 136/65. General: This is a chronically ill-appearing, middle-aged female. As mentioned above, she is looking better today. ASSESSMENT AND PLAN: I plan to continue both Zyvox and cefepime for the patient's presumed pneumonia. The patient's comorbidities include being elderly, metastatic ovarian cancer, chemotherapy, and diabetes. cc: Villa Jaimes MD
--- NOTE | 2017-06-05 14:50 | PROGRESS NOTE ---
DATE: 06/05/2017 ADDENDUM: LABORATORY AND X-RAY: Chest x-ray shows bilateral pneumonia. The patient's pleural fluid showed white cells of 990 of which 70% were polymorphonuclear. There is no CBC or BMP for today. COMORBIDITIES: The patient's comorbidities include the followin. Metastatic ovarian cancer. 2. Diabetes mellitus. 3. Chemotherapy. 4. The patient is elderly. cc: Villa Jaimes MD
[2017-06-05] MEDS ORDERED: TYGACIL 100 MG in NS 100 ML IV ONE (15:00)
[2017-06-05] MEDS: NEURONTIN PO SCH (21:38)
--- NOTE | 2017-06-05 22:14 | PROGRESS NOTE ---
DATE: 06/05/2017 SUBJECTIVE: The patient has no complaints. She is a little bit more awake than she is usually. OBJECTIVE: Vital Signs: Blood pressure 117/59, heart rate 94, respiratory rate 18, temperature 98.5 degrees 97% on 3 L. Cardiovascular: Regular rate and rhythm. Pulmonary: Bilateral breath sounds. Clear to auscultation. Gastrointestinal: Soft, nontender, nondistended. Bowel sounds are positive. LABORATORY DATA: White count is 21, hemoglobin and hematocrit 9 and 27, platelets of 50. Chemistries: Creatinine is 1.4. PROBLEM LIST: 1. VRE pneumonia. She is on Zyvox and cefepime, status post thoracentesis yesterday. Fluid does look exudative, but was not grossly infected. 2. Right upper lobe mass. Continue to monitor. No evidence of malignancy based on biopsy and pathology. 3. Ovarian cancer. Known diagnosis, status post treatment. We will continue to follow. 4. Anemia, appears to be stable. Continue to monitor. 5. Acute kidney injury has also resolved. 6. Disposition. Will discuss with team, including Dr. Jaimes, about long-term antibiotic therapy. She had previously been on Zosyn, and now based on her microbiological data, she only has Enterococcus, which is only sensitive to Tygacil and quinupristin and dalfopristin, so we will need to decide about long-term Zyvox therapy. She does have some pancytopenia issues concurrently. We will continue to monitor. cc: Mark Knapp MD
[2017-06-06] MEDS: DUONEB (A & A) INH SCH ×6 (03:10→23:14)
[2017-06-06] MEDS: TYGACIL 50 MG in NS 50 ML IV SCH ×3 (03:22→16:06)
--- NOTE | 2017-06-06 03:35 | PROGRESS NOTE ---
DATE: 06/05/2017 ADDENDUM: LAB AND X-RAY: There is no new x-ray. The patient's lab studies show a CBC with a white count down to 21,610, hemoglobin 9.1, and platelet count 50,000. Creatinine is 1.4. GFR is 46. ASSESSMENT AND PLAN: My plan now is to stop Zyvox because of the patient's low platelet count and instead substitute Tygacil which in vitro does have activity against the patient's vancomycin resistant Enterococcus that we isolated from her sputum. cc: Villa Jaimes MD
[2017-06-06] MEDS: DILAUDID IV PRN ×3 (04:56→20:12)
[2017-06-06] MEDS: HUMALOG SUBQ SCH ×3 (06:47→16:44)
[2017-06-06] MEDS: TOPROL XL PO SCH (10:20)
[2017-06-06] MEDS: ZOFRAN IV PRN ×2 (10:20→13:55)
[2017-06-06] MEDS: MAXIPIME 2 GM/NS 2 GM/100 ML IVPB IV SCH ×2 (10:21→23:58)
[2017-06-06] MEDS: TESSALON PO SCH ×3 (10:26→17:26)
--- NOTE | 2017-06-06 12:26 | PROGRESS NOTE ---
DATE: 06/06/2017 PRESENT ILLNESS: The patient is being treated now for a bilateral pneumonia. MEDICATIONS: This is day 8 of treatment with Zyvox and day 2 of treatment with cefepime. PHYSICAL EXAMINATION: Vital Signs: Temperature is 98.5 degrees, pulse 105, respirations 16, blood pressure 164/68. General: This is a chronically ill-appearing, middle-aged female. She is in no acute distress. The patient does appear ill and somewhat depressed. Lungs: Clear to auscultation. Cardiovascular: Regular heart rate. Abdomen: Soft and nontender. X-RAY STUDIES: The patient's last chest x-rays shows there is possible pneumonia in both lungs. There is no pneumothorax. LABORATORY STUDIES: The patient does not have any new laboratory studies for today. Yesterday, the creatinine was 1.4 and the CBC showed a white count of 21,610, hemoglobin 9.1, and platelet count of 50,000. ASSESSMENT AND PLAN: The patient has bilateral pneumonia. My plan would be to continue both Zyvox and cefepime. I plan to repeat the patient's CBC and BMP tomorrow, and I will obtain a chest x-ray at the beginning of next week. Hopefully, the patient will continue to be doing relatively well and we will be able to discharge her soon. COMORBIDITIES: Include being elderly, metastatic ovarian cancer, undergoing chemotherapy, and diabetes mellitus. cc: Villa Jaimes MD
--- NOTE | 2017-06-06 15:12 | PROGRESS NOTE ---
DATE: 06/06/2017 SUBJECTIVE: The patient reports she is still feeling nauseated. She is more awake and alert today. OBJECTIVE: Vital Signs: Temperature 97.9 degrees, heart rate 92, respiratory rate 16, blood pressure 135/65, O2 saturation 97% on 3 L nasal cannula. General: This is a chronically ill- looking, frail, 61-year-old -[place] female looking older than her age, lying in bed, in no acute distress. HEENT: Head is normocephalic, atraumatic. Anicteric sclerae and pale conjunctivae. Mucous membranes moist. Neck supple. No JVD noted. No carotid bruits. No lymphadenopathy. No thyromegaly. Cardiovascular: S1, S2 heard. No murmurs, gallops, or rubs. Regular rate and rhythm. Respiratory: Clear bilaterally to auscultation. No work of breathing or using accessory muscles. Abdomen is soft, nontender to palpation. Bowel sounds present. No organomegaly. Extremities: No clubbing, cyanosis, or edema. Peripheral pulses present in both legs. Neurological: Patient is more alert and awake. Moves 4 extremities. LABORATORY DATA: There are no labs from today. ASSESSMENT AND PLAN: 1. Vancomycin resistant Enterococcus pneumonia. The patient was on cefepime, but Dr. Jaimes from Infectious Disease who is following this patient decided to change the antibiotics to Tygacil 50 mg q.12 hours IV and continue with cefepime, and he has discontinued Zyvox. We will follow his recommendations. 2. Right upper lobe mass. Apparently, there is no evidence of malignancy on biopsy and will continue to follow. 3. Ovarian cancer, aware. 4. Anemia of chronic disease, stable. We will continue to monitor. 5. Acute kidney injury, resolved. DISPOSITION: Patient is receiving antibiotics per Dr. Jaimes. Dr. Jaimes is planning to keep her over the weekend and next week depending upon how she does. We talked to him to see for whom he prefers to keep this patient in the hospital. cc: Azam Gomez MD [facility]
[2017-06-06] MEDS: PHENERGAN IV PRN (17:26)
[2017-06-06] MEDS: NEURONTIN PO SCH (20:13)
[2017-06-07] MEDS: DUONEB (A & A) INH SCH ×6 (03:00→23:12)
[2017-06-07] MEDS: TYGACIL 50 MG in NS 50 ML IV SCH ×2 (03:02→14:57)
[2017-06-07] MEDS: DILAUDID IV PRN ×3 (03:08→20:44)
[2017-06-07] MEDS: HUMALOG SUBQ SCH ×5 (03:27→20:34)
[2017-06-07 05:29] LABS: BASO% 0.2 % (0.0-0.8); EOS# 0.25 X1000 (0.0-0.7); EOS% 1.4 % (0.0-10.0); HEMATOCRIT 25.6 % (37.0-47.0); HEMOGLOBIN 8.6 g/dL (12.0-16.0); IMM GRAN# 0.06 X1000 (0.0-0.04); IMM GRAN% 0.3 % (0.0-0.5); LYMPH# 1.19 X1000 (1.2-3.4); LYMPH% 6.8 % (20.5-51.1); MANUAL DIFF NEEDED? YES; MCH 28.5 PG (27-31); MCHC 33.6 g/dL (33-37); MCV 84.8 FL (81-99); MONO# 0.77 X1000 (0.11-0.59); MONO% 4.4 % (1.7-9.3); MPV 9.4 FL (7.4-10.4); NEUT% 86.9 % (42.2-75.2); RBC 3.02 XMIL (4.2-5.4)
[2017-06-07 05:30] LABS: PLT 29 X1000 (130-400)
[2017-06-07 05:51] LABS: CALCIUM 8.5 mg/dL (8.8-10.2)
[2017-06-07 07:00] LABS: HYPOCHROM 2+; LARGE PLATELETS OCCASIONAL; LYMPHS 2 % (21-51); MONO 4 % (1-9)
[2017-06-07] MEDS: TESSALON PO SCH ×3 (08:28→16:46)
[2017-06-07] MEDS: TOPROL XL PO SCH (08:28)
[2017-06-07] MEDS: TYLENOL PO PRN (10:09)
[2017-06-07] MEDS: MAXIPIME 2 GM/NS 2 GM/100 ML IVPB IV SCH ×2 (12:00→13:01)
--- NOTE | 2017-06-07 14:29 | PROGRESS NOTE ---
DATE: 06/07/2017 SUBJECTIVE: The patient reports not nauseated anymore, mild cough but she is better. OBJECTIVE: Vital Signs: Temperature 97.4 degrees, heart rate 100, respiratory rate 16, blood pressure 154/73, O2 saturation 97% on 3 L nasal cannula. General Examination: This is a chronically ill-looking, frail and malnourished 61-year-old female, looking older than her age, lying in bed, in no acute distress. HEENT: Head is normocephalic, atraumatic. Anicteric sclerae and pale conjunctivae. Mucous membranes moist. Neck: Supple. No JVD noted. No carotid bruits. No lymphadenopathy. No thyromegaly. Cardiovascular: S1, S2 heard. No murmurs, gallops, or rubs. Regular rate and rhythm. Respiratory: Clear bilaterally to auscultation. No work of breathing or using accessory muscles. Abdomen: Soft, nontender to palpation. Bowel sounds present. No organomegaly. Extremities: No clubbing, cyanosis, or edema. Peripheral pulses present in both legs. Neurological: The patient is more alert and awake. Moves 4 extremities. LABORATORY DATA: White cell count 17.55, hemoglobin 8.6, hematocrit 25.6, platelets 29,000 with BMP that shows creatinine 1.3 and glucose 137. ASSESSMENT AND PLAN: 1. Vancomycin resistant enterococcal pneumonia. Patient on cefepime and Tygacil 50 mg q.12 hours. We will continue with the same management. Clinically, she is doing good. Dr. Jaimes is also following this patient. 2. Right upper lobe mass. Apparently there is no evidence of malignancy on biopsy because we were suspecting some lung metastasis. We will continue to follow. 3. Ovarian cancer. Aware. 4. Anemia of coronary disease is stable. We will continue to monitor. 5. Acute kidney injury resolved. 6. Disposition. I spoke with Dr. Jaimes and also I agree with that. We prefer to keep this patient over the weekend and see how she does and on Saturday we will discuss about placement. cc: Azam Gomez MD
--- NOTE | 2017-06-07 17:05 | PROGRESS NOTE ---
DATE: 06/07/2017 PRESENT ILLNESS: The patient is being treated for bilateral pneumonia. MEDICATIONS: This is the day 1 of Tygacil and is a total of 9 days of treatment for the vancomycin resistant Enterococcus component of the pneumonia and this is day 3 of treatment with cefepime for the patient's pneumonia. PHYSICAL EXAMINATION: Vital Signs: Temperature is 97.4 degrees, pulse 100, respirations 16, blood pressure 154/73. General: The patient she looks much better today. She said she actually is feeling better. She is a middle-aged female. She is in no acute distress. Lungs: Clear to auscultation. Cardiovascular: Heart rate is regular. Abdomen: Soft and nontender. X-RAY STUDIES: There are no new radiographic studies. LABORATORY STUDIES: CBC shows a white count of 17,550 which is down quite a bit from what it had been. The hemoglobin is 8.6, the platelet count is 29,000. Creatinine is 1.3. GFR is 50. ASSESSMENT AND PLAN: The patient has bilateral pneumonia. I plan to continue the combination of Tygacil and cefepime. COMORBIDITIES: Include that she is elderly. She also has metastatic ovarian cancer and is undergoing chemotherapy for it and lastly the patient is a diabetic. cc: Villa Jaimes MD
[2017-06-07] MEDS: ZOFRAN IV PRN (17:10)
[2017-06-07] MEDS: NEURONTIN PO SCH (20:34)
[2017-06-07] MEDS: SODIUM CHLORIDE 0.9% INJ PRN (20:44)
[2017-06-07] MEDS: PHENERGAN IV PRN (20:44)
[2017-06-08] MEDS: MAXIPIME 2 GM/NS 2 GM/100 ML IVPB IV SCH ×3 (02:05→23:00)
[2017-06-08] MEDS: DILAUDID IV PRN ×5 (02:05→23:00)
[2017-06-08] MEDS: DUONEB (A & A) INH SCH ×6 (03:18→23:03)
[2017-06-08] MEDS: TYGACIL 50 MG in NS 50 ML IV SCH ×2 (03:44→17:45)
[2017-06-08 05:39] LABS: BASO% 0.2 % (0.0-0.8); EOS% 1.2 % (0.0-10.0); HEMATOCRIT 27.6 % (37.0-47.0); HEMOGLOBIN 9.3 g/dL (12.0-16.0); IMM GRAN# 0.04 X1000 (0.0-0.04); IMM GRAN% 0.2 % (0.0-0.5); LYMPH# 1.97 X1000 (1.2-3.4); LYMPH% 11.3 % (20.5-51.1); MANUAL DIFF NEEDED? YES; MCH 28.6 PG (27-31); MCHC 33.7 g/dL (33-37); MCV 84.9 FL (81-99); MONO# 1.17 X1000 (0.11-0.59); MONO% 6.7 % (1.7-9.3); NEUT% 80.4 % (42.2-75.2); RBC 3.25 XMIL (4.2-5.4)
[2017-06-08 05:42] LABS: PLT 19 X1000 (130-400)
[2017-06-08 05:44] LABS: BANDS 8 % (0-1); HYPOCHROM 1+; LYMPHS 12 % (21-51); MONO 6 % (1-9)
[2017-06-08] MEDS: HUMALOG SUBQ SCH ×3 (06:58→17:45)
[2017-06-08] MEDS ORDERED: NS 500 ML ONE (08:32)
[2017-06-08] MEDS: TESSALON PO SCH ×3 (09:49→17:45)
[2017-06-08] MEDS: PHENERGAN IV PRN ×2 (09:49→23:00)
[2017-06-08] MEDS: TOPROL XL PO SCH (09:49)
[2017-06-08] MEDS: ZOFRAN IV PRN ×2 (13:35→17:45)
--- NOTE | 2017-06-08 14:39 | PROGRESS NOTE ---
DATE: 06/08/2017 SUBJECTIVE: Patient reports feeling fine. No signs of bleeding. OBJECTIVE: Vital Signs: Temperature 97.3 degrees, heart rate 104, respiratory 22, blood pressure 154/75. O2 saturation 96% on 3 L nasal cannula. General: This is a chronically ill-looking, frail and malnourished 61-year-old -[place] female, looking older than her age, lying in bed, in no acute distress. HEENT: Head is normocephalic, atraumatic. Anicteric sclerae and pale conjunctivae. Mucous membranes moist. Neck supple. No JVD noted. No carotid bruits. No lymphadenopathy. No thyromegaly. Cardiovascular: S1, S2 heard. No murmurs, gallops, or rubs. Regular rate and rhythm. Respiratory: Clear bilaterally to auscultation. No work of breathing or using accessory muscles. Abdomen is soft, nontender to palpation. Bowel sounds present. No organomegaly. Extremities: No clubbing, cyanosis, or edema. Peripheral pulses present in both legs. Neurological: Patient is more alert and awake. Moves 4 extremities. LABORATORY DATA: Remarkable for white cell count of 17.37 and platelet count 19,000. No BMP from today. ASSESSMENT AND PLAN: 1. Vancomycin resistant Enterococcal pneumonia. The patient is on cefepime and Tygacil 50 mg IV q.[address] Jaimes is higher is following this patient and he is planning to continue with the same antibiotics. 2. Right upper lobe mass. No evidence of malignancy by because of biopsy. 3. Ovarian cancer, aware. 4. Anemia of chronic disease. We are going to continue to monitor CBC. 5. Acute kidney injury is almost resolved. 6. Severe thrombocytopenia most likely related to use of Zyvox. We are going to transfuse another unit of platelets today. 7. We will keep an eye on this patient closely for any signs of bleeding. cc: Azam Gomez MD
[2017-06-08] MEDS: NEURONTIN PO SCH (23:00)
[2017-06-09] MEDS: HUMALOG SUBQ SCH ×5 (02:24→21:11)
[2017-06-09] MEDS: PHENERGAN IV PRN ×2 (03:08→18:04)
[2017-06-09] MEDS: TYGACIL 50 MG in NS 50 ML IV SCH ×2 (03:08→17:13)
[2017-06-09] MEDS: DILAUDID IV PRN ×5 (03:09→21:09)
[2017-06-09] MEDS: DUONEB (A & A) INH SCH ×6 (03:30→22:52)
[2017-06-09 06:30] LABS: MANUAL DIFF NEEDED? NO
[2017-06-09 06:40] LABS: BASO% 0.3 % (0.0-0.8); EOS# 0.13 X1000 (0.0-0.7); EOS% 0.7 % (0.0-10.0); HEMATOCRIT 24.2 % (37.0-47.0); HEMOGLOBIN 7.9 g/dL (12.0-16.0); IMM GRAN# 0.08 X1000 (0.0-0.04); IMM GRAN% 0.4 % (0.0-0.5); LYMPH# 1.53 X1000 (1.2-3.4); LYMPH% 8.3 % (20.5-51.1); MCH 28.2 PG (27-31); MCHC 32.6 g/dL (33-37); MCV 86.4 FL (81-99); MONO% 8.7 % (1.7-9.3); MPV 9.8 FL (7.4-10.4); NEUT% 81.6 % (42.2-75.2); PLT 101 X1000 (130-400)
[2017-06-09] MEDS: ZOFRAN IV PRN ×3 (07:29→21:09)
[2017-06-09] MEDS: TOPROL XL PO SCH (09:12)
[2017-06-09] MEDS: TESSALON PO SCH ×3 (09:13→17:14)
[2017-06-09] MEDS: MAXIPIME 2 GM/NS 2 GM/100 ML IVPB IV SCH (11:44)
--- NOTE | 2017-06-09 17:18 | PROGRESS NOTE ---
DATE: 06/09/2017 SUBJECTIVE: Patient reports feeling fine. No signs of bleeding noted. Patient denies any pain. OBJECTIVE: Vital Signs: Temperature 97.9, heart rate 94, respiratory 22, blood pressure 150/86, O2 saturation 93% 3 L nasal cannula. General Examination: This is a chronically ill-looking frail and malnourished 61-year-old female looking older than her age lying in bed in no acute distress. HEENT: Head is normocephalic, atraumatic. Anicteric sclerae and pale conjunctivae. Mucous membranes moist. Neck: Supple. No JVD noted. No carotid bruits. No lymphadenopathy. No thyromegaly. Cardiovascular: S1 and S2 heard. No murmurs, gallops, or rubs. Regular rate and rhythm. Respiratory: There is still some coarse breath sounds in both bases but really mild, patient is not using any accessory muscles or having work of breathing. Abdomen: Soft, nontender to palpation. Bowel sounds present. No organomegaly. Extremities: No clubbing, cyanosis, or edema. Peripheral pulses present in both legs. Neurological: Patient is more alert and awake. Moved 4 extremities. LABORATORY DATA: CBC shows white cell count 18.39 with hemoglobin 7.9, hematocrit 24.2, platelets 101,000 and no BMP from today. ASSESSMENT AND PLAN: 1. Vancomycin resistant enterococcal pneumonia. Patient currently is on cefepime and Tygacil 50 mg IV q.[address] Jaimes from Infectious Disease is following this patient and will check with him for how long this patient needs to be on antibiotics so we can discharge her to most probably rehab facility. 2. Right upper lobe mass, no evidence of malignancy. 3. Ovarian cancer aware. 4. Anemia chronic disease. By now this is stable. We are going to continue checking CBC. 5. Severe thrombocytopenia. Patient has received 2 units of platelets. We told that this could be related to a use of Zyvox. In any case white cell count has improved a lot. Will continue with the same treatment. cc: Azam Gomez MD
[2017-06-09 17:38] LABS: URINE CULTURE NEEDED? NO; URINE MICRO REVIEW NEEDED? NO; URINE SOURCE CATH
[2017-06-09 17:43] LABS: BILIRUBIN URINE NEGATIVE (NEGATIVE); BLOOD URINE SMALL (NEGATIVE); COLOR YELLOW; GLUCOSE URINE NEGATIVE (NEGATIVE); LEUKOCYTES URINE NEGATIVE (NEGATIVE); NITRITE URINE NEGATIVE (NEGATIVE); PROTEIN URINE 30 mg/dL (NEGATIVE); SP GRAVITY URINE 1.012; TURBIDITY URINE CLEAR (CLEAR); UROBILINOGEN URINE NORMAL (NORMAL)
[2017-06-09 17:44] LABS: UR EPITHELIAL CELLS <10 /HPF (<10); URINE BACTERIA NEGATIVE /HPF; URINE RBC <10 /HPF (<10); URINE WBC <10 /HPF (<10)
[2017-06-09] MEDS: SODIUM CHLORIDE 0.9% INJ PRN (18:04)
[2017-06-10] MEDS: MAXIPIME 2 GM/NS 2 GM/100 ML IVPB IV SCH ×2 (00:04→12:18)
[2017-06-10] MEDS: NEURONTIN PO SCH ×2 (00:04→21:47)
[2017-06-10] MEDS: DUONEB (A & A) INH SCH ×6 (03:04→23:12)
[2017-06-10] MEDS: TYGACIL 50 MG in NS 50 ML IV SCH ×2 (03:46→16:10)
[2017-06-10] MEDS: DILAUDID IV PRN ×5 (03:54→21:47)
[2017-06-10] MEDS: ZOFRAN IV PRN ×2 (03:54→08:27)
[2017-06-10 06:29] LABS: BASO% 0.3 % (0.0-0.8); EOS# 0.33 X1000 (0.0-0.7); EOS% 1.5 % (0.0-10.0); HEMOGLOBIN 7.8 g/dL (12.0-16.0); IMM GRAN# 0.11 X1000 (0.0-0.04); IMM GRAN% 0.5 % (0.0-0.5); LYMPH# 2.29 X1000 (1.2-3.4); LYMPH% 10.4 % (20.5-51.1); MANUAL DIFF NEEDED? YES; MCH 28.2 PG (27-31); MCHC 32.5 g/dL (33-37); MCV 86.6 FL (81-99); MONO# 2.83 X1000 (0.11-0.59); MONO% 12.8 % (1.7-9.3); MPV 9.6 FL (7.4-10.4); NEUT% 74.5 % (42.2-75.2); PLT 50 X1000 (130-400); RBC 2.77 XMIL (4.2-5.4)
[2017-06-10 07:40] LABS: BANDS 10 % (0-1); LYMPHS 4 % (21-51); MONO 8 % (1-9)
[2017-06-10 07:41] LABS: HYPOCHROM 1+
[2017-06-10] MEDS: HUMALOG SUBQ SCH ×4 (07:58→21:48)
--- NOTE | 2017-06-10 08:03 | Diag Imaging Result Doc PS360 ---
EXAM: CHEST-2 VIEWS HISTORY: pneumonia TECHNIQUE: AP upright and lateral chest COMMENT: There is alveolar opacity throughout both the lingula and the left lower lobe as well as in a patchy distribution in the right upper lobe and right lower lobe. This has worsened since the previous study of 06/04/2017. IMPRESSION: Worsened pneumonia. Electronically signed by Omer Barros 06/10/2017 8:00 AM
[2017-06-10] MEDS: TOPROL XL PO SCH (08:29)
[2017-06-10] MEDS: TESSALON PO SCH ×3 (08:30→16:10)
[2017-06-10 13:18] LABS: INR 1.52; PROTIME 16.4 Seconds (9.2-11.7); PTT 35.4 Seconds (22.0-36.0)
--- NOTE | 2017-06-10 16:24 | PROGRESS NOTE ---
DATE: 06/10/2017 SUBJECTIVE: The patient is resting comfortably in bed. She did not eat her breakfast this morning. OBJECTIVE: Vital Signs: Temperature 99.7 degrees, blood pressure 142/64, heart rate 90, respirations 16, O2 saturation is 98% on 3 L nasal cannula. General: This is an elderly female, lying in bed, in no acute distress. Head: Normocephalic, atraumatic. Heart: S1, S2. Normal. Regular rate and rhythm. Lungs: Clear entry bilaterally. No crackles. Abdomen: Positive bowel sounds. Soft, nontender, nondistended. Extremities: No edema. No cyanosis. No calf tenderness. Neurologic: The patient is alert. No focal neurologic deficits noted. LABS: White blood cell count 22, hemoglobin 7.8, hematocrit 25, platelets 50,000. ASSESSMENT AND PLAN: 1. Bilateral lobe pneumonia secondary to vancomycin-resistant Enterococcus. Continue on the current IV antibiotic regimen as directed by Dr. Jaimes. 2. Bilateral pleural effusions. Stable. 3. Metastatic ovarian cancer. Aware. Dr. Panchal is following. 4. Thrombocytopenia. We will continue to monitor this closely and transfuse p.r.n. 5. Anemia of chronic disease. The patient's hemoglobin is low but stable. 6. Protein calorie malnutrition. Continue on Glucerna shakes. 7. Chronic kidney disease. Stable. cc: Milagros Hebert MD
[2017-06-10] MEDS ORDERED: VANCOMYCIN IV PER PHARMACY MISC SCH (17:00)
--- NOTE | 2017-06-10 17:29 | PROGRESS NOTE ---
DATE: 06/10/2017 PRESENT ILLNESS: The patient is being treated for a bilateral pneumonia. MEDICATIONS: The patient is being treated for a vancomycin resistant enterococcus pneumonia. MEDICATIONS: Tygacil and cefepime. PHYSICAL EXAMINATION: Vital Signs: Temperature is 99.6 degrees, pulse 96, respirations 16, blood pressure 132/66. Generally: This is an ill-appearing, middle-aged female. She is not complaining of anything today. Lungs: Clear to auscultation. Cardiovascular: Regular heart rate. Abdomen: Soft and nontender. Extremities: Patient has a PICC in her arm. The site is not red or swollen. Neurologic: Patient is awake. She can move her extremities. LABORATORY AND X-RAY: The chest x-ray shows worsening of the pulmonary infiltrates. The CBC shows elevation of the white count to 22,090, hemoglobin 7.8, and platelet count 50,000. There is no recent BMP. ASSESSMENT AND PLAN: 1. The patient appears to have worsening pneumonia. My plan is to discontinue the current antibiotics, namely Tygacil and cefepime and substitute them with a combination of vancomycin and meropenem. 2. The patient's comorbidities include metastatic ovarian cancer and chemotherapy. In addition, the patient is diabetic. cc: Villa Jaimes MD
[2017-06-10] MEDS ORDERED: VANCOMYCIN 1,650 MG in NS 250 ML IV ONE (18:00)
[2017-06-10] MEDS: MERREM 1 GM in NS 50 ML IV SCH (18:27)
[2017-06-11] MEDS: MERREM 1 GM in NS 50 ML IV SCH ×3 (01:10→17:44)
[2017-06-11] MEDS: DILAUDID IV PRN ×5 (02:09→23:04)
[2017-06-11] MEDS: DUONEB (A & A) INH SCH ×6 (03:05→23:00)
[2017-06-11 06:02] LABS: BASO% 0.5 % (0.0-0.8); EOS# 0.46 X1000 (0.0-0.7); EOS% 1.9 % (0.0-10.0); HEMATOCRIT 24.6 % (37.0-47.0); HEMOGLOBIN 7.9 g/dL (12.0-16.0); IMM GRAN# 0.19 X1000 (0.0-0.04); IMM GRAN% 0.8 % (0.0-0.5); LYMPH# 2.29 X1000 (1.2-3.4); LYMPH% 9.6 % (20.5-51.1); MANUAL DIFF NEEDED? YES; MCHC 32.1 g/dL (33-37); MCV 87.2 FL (81-99); MONO# 2.56 X1000 (0.11-0.59); MONO% 10.8 % (1.7-9.3); MPV 9.9 FL (7.4-10.4); NEUT% 76.4 % (42.2-75.2); RBC 2.82 XMIL (4.2-5.4)
[2017-06-11 06:03] LABS: PLT 29 X1000 (130-400)
[2017-06-11 06:25] LABS: BANDS 28 % (0-1); EOS 2 % (1-10); LYMPHS 14 % (21-51); MONO 4 % (1-9)
[2017-06-11 06:26] LABS: HYPOCHROM 1+; LARGE PLATELETS OCCASIONAL
[2017-06-11] MEDS: HUMALOG SUBQ SCH ×4 (07:39→20:32)
[2017-06-11] MEDS: TESSALON PO SCH ×3 (09:33→17:44)
[2017-06-11] MEDS: TOPROL XL PO SCH (09:34)
--- NOTE | 2017-06-11 09:57 | PROGRESS NOTE ---
DATE: 06/10/2017 SUBJECTIVE: The patient is sitting in the hospital bed. She just spilled Glucerna all over her bed she seems upset about this. OBJECTIVE: Vital Signs: Temperature 99.8, heart rate 89, respirations 24, blood pressure 172/98, O2 saturation 100% on 3 L nasal cannula. LABORATORY: White blood cells 22.09, hemoglobin 7.8, hematocrit 24.0, platelets 51,000. No new CMP noted. CA-125 is 269. Preliminary pleural fluid result is positive for malignancy. PHYSICAL EXAMINATION: CV: S1, S2 heard. Regular rate and rhythm. Respiratory : Coarse breath sounds bilaterally. Abdomen: Soft, nontender. Nondistended. Positive bowel sounds. Extremities: Trace bilateral lower extremity edema noted. ASSESSMENT AND PLAN: 1. Metastatic ovarian cancer, workup in process. CA-125, as per above. Pleural fluid positive for malignancy. The patient currently has infection. Plan will be, once she recovers from infection to discuss palliative chemotherapy. She is a patient of Dr. Landers' s and so we will make sure that he gets updated. 2. Vancomycin-resistant Enterococcus pneumonia, as per Dr. Jaimes in regards to IV antibiotic treatment. 3. Thrombocytopenia, worsening. Patient did receive platelets over the weekend. Her platelet count is back down to 50. We will go ahead and check a DIC panel as well as heparin antibodies at this time. 4. Anemia, new problem. We will continue to transfuse the patient p.r.n. Dictated by LIBERTY Devlin for Renu Panchal MD cc: Renu Panchal MD I have seen and examined the patient and agree with the above A/P. Renu BARONE
[2017-06-11] MEDS: ZOFRAN IV PRN (10:47)
--- NOTE | 2017-06-11 15:29 | PROGRESS NOTE ---
DATE: 06/11/2017 SUBJECTIVE: The patient is resting comfortably in bed. She has no complaints at this time. OBJECTIVE: Vital Signs: Temperature 98 degrees, blood pressure 166/69, heart rate 96, respirations 17, O2 saturations 96% on 3 L nasal cannula. General: This is a chronically ill- appearing, elderly female, lying in bed, in no acute distress. Head: Normocephalic, atraumatic. Heart: S1, S2. Normal. Regular rate and rhythm. Lungs: Equal air entry bilaterally. No crackles. Abdomen: Positive bowel sounds. Soft, nontender, nondistended. Extremities: Trace pedal edema. No cyanosis. No calf tenderness. Neurologic: The patient is alert and oriented. LABS: White blood cell count 23, hemoglobin 7.9, hematocrit 24, platelets 29,000. Glucose 155. ASSESSMENT AND PLAN: 1. Bilateral lobe pneumonia secondary to VRE. Continue on IV antibiotic therapy. 2. Bilateral pleural effusions. Stable. 3. Ovarian cancer. Aware. 4. Thrombocytopenia. Management as per the oncologist. 5. Anemia of chronic disease. We will continue to monitor the patient's hemoglobin and hematocrit and transfuse p.r.n. 6. Chronic kidney disease. Stable. 7. Continue with physical therapy. cc: Milagros Hebert MD
[2017-06-11 15:34] LABS: INR 1.56; PROTIME 16.9 Seconds (9.2-11.7)
[2017-06-11] MEDS ORDERED: NS 250 ML IV SCH (15:50)
--- NOTE | 2017-06-11 16:31 | PROGRESS NOTE ---
DATE: 06/11/2017 SUBJECTIVE: Ms. Bills is sitting up, about to eat lunch. She has no one at bedside. Patient does not really respond to many of my questions. OBJECTIVE: Vital Signs: Temperature 98.1 degrees, heart rate 93, respirations 15, blood pressure 168/70, O2 saturations 93% on 3 L nasal cannula. CARDIOVASCULAR: Regular rate rhythm. S1, S2 heard. Respiratory: Coarse breath sounds bilaterally. Some scant wheezing. Gastrointestinal: Abdomen is slightly distended. Positive bowel sounds. Mild tenderness. Extremities: Trace edema noted. LABORATORY: White blood cells 23.76, hemoglobin 7.9, hematocrit 24.6, platelets 29,000. No new chemistry profile for today. Fibrinogen 80.1. D-dimer 21. INR 1.56. PT 16.9 ASSESSMENT AND PLAN: 1. Metastatic ovarian carcinoma. The patient's CA-125 is elevated. Her pleural fluid is positive for malignancy. The patient currently has acute illness. Palliative chemotherapy will be discussed once the patient has recovered. 2. Vancomycin-resistant enterococci pneumonia. As per Dr. Jaimes. Continue IV antibiotics. Continue to monitor with chest x-ray. 3. Thrombocytopenia. Patient has disseminated intravascular coagulation. Her fibrinogen is quite low. We will go ahead and give 10 units of cryoprecipitates at this time. Recheck fibrinogen in the morning. Continue to replete as needed. No active bleeding at this time. Continue to transfuse platelets as needed. 4. Anemia. Overall stable. Continue to monitor and transfuse as needed. Dictated by LIBERTY Devlin for Renu Panchal MD cc: Renu Panchal MD I have seen and examined the patient and agree with the above A/P. Renu BARONE
--- NOTE | 2017-06-11 18:44 | PROGRESS NOTE ---
DATE: 06/11/2017 PRESENT ILLNESS: The patient has bilateral pneumonia. The most recent isolate from the patient's sputum was a vancomycin-resistant Enterococcus. MEDICATIONS: The patient was switched yesterday to vancomycin and meropenem. PHYSICAL EXAMINATION: Vital Signs: Temperature is 98.3 degrees, pulse 99, respirations 18, blood pressure 150/59. Generally: This is ill-appearing middle-aged female. She is in no acute distress. Lungs: There were bilateral rhonchi. Cardiovascular: Heart rate was regular. Abdomen: Soft and nontender. Neurologic: The patient has a flat affect. She is weak. LAB AND X-RAY: CBC today shows a white count that is up to 23,760, hemoglobin 7.9 and platelet count 29,000. The patient did not have a BMP for today. There was no new x-ray today. The only new lab was a CBC which I previously gave the values for that. ASSESSMENT AND PLAN: I have restarted Tygacil and discontinued vancomycin. I plan to continue meropenem for presumed pneumonia. A BMP for tomorrow has been ordered and I have ordered a repeat CBC. I agree with Dr. Suresh starting steroids on this patient. COMORBIDITIES: Include metastatic ovarian cancer, chemotherapy and diabetes. cc: Villa Jaimes MD
[2017-06-11] MEDS: TYGACIL 50 MG in NS 50 ML IV SCH (20:27)
[2017-06-11] MEDS: NEURONTIN PO SCH (20:32)
[2017-06-11] MEDS: SODIUM CHLORIDE 0.9% INJ PRN (23:02)
[2017-06-11] MEDS: PHENERGAN IV PRN (23:02)
[2017-06-12] MEDS: MERREM 1 GM in NS 50 ML IV SCH ×3 (00:47→16:59)
[2017-06-12] MEDS: SOLU-MEDROL IV SCH ×6 (00:47→17:57)
[2017-06-12] MEDS ORDERED: NS 250 ML ONE (00:51)
[2017-06-12] MEDS: DILAUDID IV PRN ×5 (02:03→21:33)
[2017-06-12] MEDS: SODIUM CHLORIDE 0.9% INJ PRN (03:03)
[2017-06-12] MEDS: PHENERGAN IV PRN (03:03)
[2017-06-12] MEDS: DUONEB (A & A) INH SCH ×6 (03:17→22:35)
[2017-06-12] MEDS: TYGACIL 50 MG in NS 50 ML IV SCH ×3 (04:59→17:56)
[2017-06-12] MEDS ORDERED: VANCOMYCIN 1,350 MG in NS 250 ML IV SCH (06:00)
[2017-06-12] MEDS: HUMALOG SUBQ SCH ×4 (06:04→21:33)
[2017-06-12 07:09] LABS: AGAP 20; BUN 33 mg/dL (8-22); CALCIUM 8.5 mg/dL (8.8-10.2); CHLORIDE 101 mmol/L (98-107); COSMO 298; POTASSIUM 4.7 mmol/L (3.5-5.1); SODIUM 142 mmol/L (136-145); TCO2 21 mmol/L (25-35)
[2017-06-12 07:23] LABS: BASO% 0.2 % (0.0-0.8); EOS# 0.03 X1000 (0.0-0.7); EOS% 0.1 % (0.0-10.0); HEMATOCRIT 23.6 % (37.0-47.0); HEMOGLOBIN 7.6 g/dL (12.0-16.0); IMM GRAN# 0.35 X1000 (0.0-0.04); IMM GRAN% 1.2 % (0.0-0.5); LYMPH# 1.86 X1000 (1.2-3.4); LYMPH% 6.2 % (20.5-51.1); MANUAL DIFF NEEDED? YES; MCH 28.1 PG (27-31); MCHC 32.2 g/dL (33-37); MCV 87.4 FL (81-99); MONO# 0.37 X1000 (0.11-0.59); MONO% 1.2 % (1.7-9.3); NEUT% 91.1 % (42.2-75.2); PLT 37 X1000 (130-400)
[2017-06-12 08:03] LABS: BANDS 9 % (0-1); LYMPHS 3 % (21-51); MONO 3 % (1-9); NRBC 1 % (0-0)
[2017-06-12 08:04] LABS: HYPOCHROM 1+; LARGE PLATELETS 1+
[2017-06-12] MEDS: TESSALON PO SCH ×3 (11:19→16:59)
[2017-06-12] MEDS: TOPROL XL PO SCH (11:19)
[2017-06-12] MEDS: ZOFRAN IV PRN (11:45)
--- NOTE | 2017-06-12 12:47 | PROGRESS NOTE ---
DATE: 06/12/2017 SUBJECTIVE: The patient was resting in bed. She complains of mild abdominal pain. No acute events noted overnight. OBJECTIVE: Vital Signs: Temperature 98.2 degrees, blood pressure 146/80, heart rate 91, respirations 15, and O2 saturation 99% on 3L nasal cannula. General: This is an elderly female, lying in bed in no acute distress. Head: Normocephalic, atraumatic. Heart: S1 and S2 normal. Tachycardic. Lungs: Equal air entry bilaterally. No crackles. No wheezing. Abdomen: Positive bowel sounds. Soft, nontender, nondistended. Extremities: No edema. No cyanosis. Neurologic: The patient is alert and oriented x3. LABORATORIES: White blood cell count 29, hemoglobin 7.6, hematocrit 23, and platelets 27,000. Sodium 142, potassium 4.7, chloride 101, CO2 of 21, BUN 33, creatinine 1.1, glucose 229. ASSESSMENT AND PLAN: 1. Bilateral lobe pneumonia secondary to vancomycin-resistant enterococcus. Continue on the current IV antibiotic regimen as directed by Dr. Villa Jaimes. 2. Leukocytosis increased today; however, the patient was started on IV steroids yesterday. We will continue to monitor this closely. 3. Metastatic ovarian cancer. Oncology is following. 4. Thrombocytopenia. The patient has disseminated intravascular coagulation. Management as per the cathode ray tube assembler. 5. Disseminated intravascular coagulation. Management as per the cathode ray tube assembler. 6. Anemia. The patient's hemoglobin and hematocrit are low. Transfuse p.r.n. cc: Milagros Hebert MD
[2017-06-12] MEDS ORDERED: NS 250 ML IV SCH (13:55)
[2017-06-12] MEDS ORDERED: CALMOSEPTINE OINTMENT TOP PRN (14:08)
--- NOTE | 2017-06-12 19:43 | PROGRESS NOTE ---
DATE: 06/12/2017 PRESENT ILLNESS: Patient has bilateral pneumonia. The patient's most recent isolate from the sputum was a vancomycin-resistant Enterococcus. MEDICATIONS: The patient was restarted Tygacil and now the patient has had a total of 5 days of Tygacil. Also, meropenem has been given and this is day 2 of treatment with meropenem. PHYSICAL EXAMINATION: Vital Signs: Temperature is 98 degrees, pulse 97, respirations 18, blood pressure 155/76. General: This is an ill-appearing middle-aged female. She is in no acute distress. Lungs: There were bilateral rhonchi. Cardiovascular: Heart rate was regular. Abdomen: Soft and nontender. Neurologic: Patient today seemed more alert. LABORATORY AND X-RAY: CBC shows a white count of 29,950, hemoglobin 7.6 and platelet count 37,000, creatinine is 1.1. GFR is greater than 60. ASSESSMENT AND PLAN: 1. I am going to continue with Tygacil and meropenem. The patient's leukocytosis in part could be due to the steroids that were started. 2. Comorbidities include metastatic ovarian cancer, chemotherapy and diabetes. cc: Villa Jaimes MD
[2017-06-12] MEDS: NEURONTIN PO SCH (21:33)
[2017-06-13] MEDS: MERREM 1 GM in NS 50 ML IV SCH ×3 (01:05→17:28)
[2017-06-13] MEDS: DILAUDID IV PRN ×5 (01:06→23:50)
[2017-06-13] MEDS: SOLU-MEDROL IV SCH ×4 (01:06→17:37)
[2017-06-13] MEDS: DUONEB (A & A) INH SCH ×6 (03:41→22:59)
[2017-06-13] MEDS: TYGACIL 50 MG in NS 50 ML IV SCH ×2 (05:57→19:04)
[2017-06-13] MEDS: HUMALOG SUBQ SCH ×3 (06:22→17:26)
[2017-06-13 06:49] LABS: BASO% 0.1 % (0.0-0.8); HEMATOCRIT 22.3 % (37.0-47.0); HEMOGLOBIN 7.3 g/dL (12.0-16.0); IMM GRAN# 0.35 X1000 (0.0-0.04); IMM GRAN% 0.7 % (0.0-0.5); LYMPH# 1.96 X1000 (1.2-3.4); LYMPH% 4.2 % (20.5-51.1); MANUAL DIFF NEEDED? YES; MCH 28.7 PG (27-31); MCHC 32.7 g/dL (33-37); MCV 87.8 FL (81-99); MONO# 0.98 X1000 (0.11-0.59); MONO% 2.1 % (1.7-9.3); NEUT% 92.9 % (42.2-75.2); PLT 46 X1000 (130-400); RBC 2.54 XMIL (4.2-5.4)
[2017-06-13 07:07] LABS: CALCIUM 8.5 mg/dL (8.8-10.2); MAGNESIUM 1.9 mg/dL (1.5-2.7); POTASSIUM 4.5 mmol/L (3.5-5.1)
[2017-06-13] MEDS ORDERED: NS 1,000 ML IV SCH (07:12)
[2017-06-13 08:17] LABS: BANDS 1 % (0-1); EOS 2 % (1-10); LYMPHS 22 % (21-51); MONO 3 % (1-9); NRBC 1 % (0-0)
[2017-06-13] MEDS: TESSALON PO SCH ×3 (08:20→17:36)
[2017-06-13] MEDS: TOPROL XL PO SCH (08:20)
--- NOTE | 2017-06-13 15:17 | PROGRESS NOTE ---
DATE: 06/13/2017 SUBJECTIVE: The patient is resting comfortably in bed. She does complain of lower abdominal pain. OBJECTIVE: Vital Signs: Temperature 97 degrees, blood pressure 154/77, heart rate 85, respirations 18, O2 saturations 97% on 3 L nasal cannula. General: This is a chronically ill- appearing, elderly female, lying in bed, in no acute distress. Head is normocephalic, atraumatic. Heart: S1, S2 normal. Regular rate and rhythm. Lungs: Equal air entry bilaterally. No crackles. No rales. Abdomen: Positive bowel sounds. Soft, nontender, nondistended. Extremities: No edema. No cyanosis. No calf tenderness. Neurologic: The patient is awake and alert. LABORATORY DATA: White blood cell count 47. Hemoglobin 7.3, hematocrit 22, platelets 46,000. Sodium 144, potassium 4.5, chloride 105. CO2 of 26. BUN 50. Creatinine 1.3, glucose 173. Magnesium 1.9. Phosphorus 3.9. ASSESSMENT AND PLAN: 1. Bilateral lobe pneumonia secondary to Vancomycin-resistant enterococci. Continue on the current IV antibiotic regimen. 2. Leukocytosis. The patient's white blood cell count is 47,000 today. This may be a result of the patient's IV steroids. Continue on IV antibiotic therapy. We will continue to monitor this closely. 3. Metastatic ovarian cancer, aware. The oncologist is following. 4. Anemia. The patient will receive a blood transfusion today. 5. Thrombocytopenia. Continue to monitor closely. 6. Disseminated intravascular coagulopathy. Management as per the oncologist. 7. Acute kidney injury. We will start the patient on gentle IV fluid hydration and check urine studies. We will continue to avoid nephrotoxic agents. 8. Continue with physical therapy. cc: Milagros Hebert MD
[2017-06-13] MEDS: 1/2 NS 1,000 ML IV SCH (17:35)
[2017-06-13 18:00] LABS: URINE SOURCE CATH
[2017-06-13 18:08] LABS: BILIRUBIN URINE NEGATIVE (NEGATIVE); BLOOD URINE MODERATE (NEGATIVE); COLOR YELLOW; GLUCOSE URINE NEGATIVE (NEGATIVE); LEUKOCYTES URINE LARGE (NEGATIVE); NITRITE URINE NEGATIVE (NEGATIVE); PH URINE 5.5; PROTEIN URINE 100 mg/dL (NEGATIVE); SP GRAVITY URINE 1.016; TURBIDITY URINE HAZY (CLEAR); UROBILINOGEN URINE NORMAL (NORMAL)
[2017-06-13 18:14] LABS: UR EPITHELIAL CELLS <10 /HPF (<10); URINE BACTERIA NEGATIVE /HPF; URINE MICRO REVIEW NEEDED? YES; URINE WBC TNTC /HPF (<10)
[2017-06-13 18:19] LABS: URINE CASTS NONE SEEN
[2017-06-13 18:47] LABS: UR CREAT RANDOM < 4.2 mg/dL (11-20); UR PROT RANDOM < 4.0 mg/dL; UR SODIUM < 10 mmoll
--- NOTE | 2017-06-13 18:48 | PROGRESS NOTE ---
DATE: 06/13/2017 PRESENT ILLNESS: The patient has a bilateral pneumonia. MEDICATIONS: This is the 6th day of treatment with Tygacil and the 3rd day of treatment with meropenem for the patient's pneumonia. PHYSICAL EXAMINATION: Vital Signs: Temperature is 98 degrees, pulse 85, respirations 18, blood pressure 162/77. General: This is a chronically ill-appearing, middle-aged female. She is in no acute distress. Lungs: Clear to auscultation. Cardiovascular: Heart rate is regular. Abdomen: Soft. A little bit tender in the left lower quadrant. Neurologic: The patient is kind of moaning in bed, saying that she is having pain in the left lower quadrant of the abdomen. LAB AND X-RAY: The patient's CBC shows a white count of 47,000, hemoglobin 7.3, and platelet count 46,000. The patient's creatinine is 1.3. The GFR is 50. There is no new chest x-ray for today. ASSESSMENT AND PLAN: The assessment is that the patient has pneumonia and the plan will be to continue Tygacil and meropenem. The patient's leukocytosis certainly could be due to the fact that the patient is getting steroids. Comorbidities include metastatic ovarian cancer, chemotherapy, and diabetes mellitus. cc: iVlla Jaimes MD
[2017-06-13] MEDS: NEURONTIN PO SCH (21:27)
[2017-06-13 23:11] LABS: CALCIUM 8.4 mg/dL (8.8-10.2); MAGNESIUM 1.9 mg/dL (1.5-2.7); POTASSIUM 4.2 mmol/L (3.5-5.1)
[2017-06-14] MEDS: MERREM 1 GM in NS 50 ML IV SCH ×3 (03:14→17:32)
[2017-06-14] MEDS: SOLU-MEDROL IV SCH ×4 (03:19→21:10)
[2017-06-14] MEDS: DUONEB (A & A) INH SCH ×6 (03:26→22:55)
--- NOTE | 2017-06-14 03:48 | PROGRESS NOTE ---
DATE: 06/13/2017 ADDENDUM: I discussed with her that she continues to have pelvic pain. I looked in the computer and the last CT scan of the pelvis was done in April of this year. Therefore, I have gone ahead and ordered a CT scan of the abdomen and pelvis. I put to use p.o. contrast, but not IV contrast. cc: Villa Jaimes MD
[2017-06-14] MEDS: DILAUDID IV PRN ×4 (04:59→23:04)
--- NOTE | 2017-06-14 05:14 | EKG Report ---
Test Performed on : 06/13/2017 9:28:51 PM Test Reason : 6 beat run of pvc Blood Pressure : / mmHG Vent. Rate : 078 BPM Atrial Rate : 078 BPM P-R Int : 136 ms QRS Dur : 084 ms QT Int : 394 ms P-R-T Axes : 027 014 027 degrees QTc Int : 449 ms Normal sinus rhythm. Normal ECG When compared with ECG of 23-MAY-2017 11:36, No significant change was found Confirmed by Agatha Pandey MD ([id number]) on 06/18/2017 6:01:22 AM
--- NOTE | 2017-06-14 06:09 | Diag Imaging Result Doc PS360 ---
EXAM: CHEST-PORTABLE HISTORY: abnormal exam TECHNIQUE: Portable chest COMPARISON: 06/10/2017 FINDINGS: No change in the position of the left-sided PICC line. There are bilateral infiltrates. These are less dense than on the prior study. There is a small right-sided pleural effusion with a [id number] left-sided pleural effusion. Basilar atelectasis remains. IMPRESSION: Mild interval improvement. Electronically signed by Stan Tristan 06/14/2017 6:07 AM
[2017-06-14] MEDS: TYGACIL 50 MG in NS 50 ML IV SCH ×2 (06:23→18:06)
[2017-06-14] MEDS: HUMALOG SUBQ SCH ×4 (06:23→17:36)
[2017-06-14 06:49] LABS: AGAP 15; BUN 59 mg/dL (8-22); CALCIUM 8.2 mg/dL (8.8-10.2); CHLORIDE 103 mmol/L (98-107); COSMO 303; POTASSIUM 4.3 mmol/L (3.5-5.1); SODIUM 140 mmol/L (136-145); TCO2 22 mmol/L (25-35)
[2017-06-14 06:54] LABS: BASO% 0.1 % (0.0-0.8); HEMATOCRIT 28.9 % (37.0-47.0); HEMOGLOBIN 9.7 g/dL (12.0-16.0); IMM GRAN# 0.31 X1000 (0.0-0.04); IMM GRAN% 0.7 % (0.0-0.5); LYMPH# 0.93 X1000 (1.2-3.4); MANUAL DIFF NEEDED? YES; MCH 28.7 PG (27-31); MCHC 33.6 g/dL (33-37); MCV 85.5 FL (81-99); MONO# 0.97 X1000 (0.11-0.59); MONO% 2.1 % (1.7-9.3); NEUT% 95.1 % (42.2-75.2); RBC 3.38 XMIL (4.2-5.4)
[2017-06-14 06:56] LABS: PLT 38 X1000 (130-400)
--- NOTE | 2017-06-14 07:29 | Diag Imaging Result Doc PS360 ---
EXAM: ABDOMEN/PELVIS W/O CONTRAST INDICATION: pelvic pain TECHNIQUE: COMPARISON: 05/07/2017 FINDINGS: There is a small right pleural effusion and a moderate to large size left effusion. There is pleural thickening at the periphery of the right effusion suggesting loculation. There is associated bibasilar atelectasis. There are calcified granulomata in the spleen. There is hepatic steatosis. There is a stable cyst at the lower pole of the right kidney. The kidneys are grossly unremarkable, otherwise. The pancreas, adrenal glands, and gallbladder are unremarkable. The appendix is normal. There is a [place] catheter in the urinary bladder. The bladder is partially distended. There has been a previous hysterectomy. Midabdomen retroperitoneal lymphadenopathy is essentially stable. No definite new lymphadenopathy is appreciated. There is nothing to suggest bony metastatic disease. The GI tract is essentially unremarkable. IMPRESSION: 1.Bilateral pleural effusions, largest on the left. 2.Essentially stable retroperitoneal lymphadenopathy. 3.Other incidental/nonacute findings detailed above. Electronically signed by Gil Preciado 06/14/2017 7:27 AM
[2017-06-14 07:42] LABS: NRBC 1 % (0-0)
[2017-06-14] MEDS: TOPROL XL PO SCH (08:17)
[2017-06-14] MEDS: TESSALON PO SCH ×3 (08:17→17:35)
[2017-06-14] MEDS: 1/2 NS 1,000 ML IV SCH ×2 (08:17→21:09)
--- NOTE | 2017-06-14 14:36 | PROGRESS NOTE ---
DATE: 06/14/2017 SUBJECTIVE: Ms. Bills is sitting up in hospital bed in no acute distress. OBJECTIVE: Vital Signs: Temperature 96.5, heart rate 79, respirations 16, blood pressure 175/81, O2 saturations 95% on 3 L nasal cannula. LABORATORY: White blood cells of 46.66, hemoglobin 9.7, hematocrit 28.9, platelets 38,000. Fibrinogen is 63.8. Sodium 140, potassium 4.3, chloride 103, CO2 22, BUN 59, creatinine 1.1. Glucose 218. PHYSICAL EXAMINATION: Cardiovascular: S1, S2 heard. No murmurs, gallops, rubs appreciated. Respiratory: Chest is essentially clear to auscultation bilaterally. Normal respiratory effort. Gastrointestinal: Abdomen is less distended today. Positive bowel sounds. Soft and nontender. Extremities: Patient has some trace bilateral extremity edema. ASSESSMENT AND PLAN: 1. Metastatic ovarian carcinoma. The plan will be to discuss the possibility of having palliative chemotherapy once the patient recovers from her VRE. 2. Vancomycin resistant Enterococci pneumonia. Continue antibiotics as per Infectious Disease. 3. Disseminated intravascular coagulation. We will continue to monitor patient' s fibrinogen daily. Goal fibrinogen is 150 or greater. We will continue to give cryo as her fibrinogen is 63.8 today. The plan will be to give her 2 additional units at this time. 4. Anemia. This is better after having 1 unit of packed red blood cells yesterday. We will continue to transfuse as needed. 5. Thrombocytopenia. This is secondary to disseminated intravascular coagulation. Cryo as per above. No evidence of bleeding at this time. Plan to transfuse platelets as needed. We will be signing off for the weekend and watching the patient peripherally. If any questions, please contact us. Resume regular followup on 06/17/2017. Dictated by LIBERTY Devlin for Renu Panchal MD cc: Renu Panchal MD I have seen and examined the patient and agree with the above A/P. Renu Panchal MD MTDCheng
--- NOTE | 2017-06-14 15:00 | PROGRESS NOTE ---
DATE: 06/14/2017 SUBJECTIVE: The patient is resting comfortably in bed. She has no complaints at this time. OBJECTIVE: Vital Signs: Temperature 98.4 degrees, blood pressure 176/88, heart rate 84, respirations 18, O2 saturations 100% on 3 L nasal cannula. General: This is an elderly chronically ill-appearing female, lying in bed in no acute distress. Head: Normocephalic, atraumatic. Heart: S1, S2 normal. Regular rate and rhythm. Lungs: Equal air entry bilaterally. No crackles, no rales. Abdomen: Positive bowel sounds. Soft, nontender, nondistended. Extremities: No edema. No cyanosis. LABS: White blood cell count 46, hemoglobin 9.7, hematocrit 23, platelets 38. Sodium 140, potassium 4.3, chloride 103, CO2 22, BUN 59, creatinine 1.1, glucose 218. ASSESSMENT AND PLAN: 1. Pneumonia secondary to Enterococcus faecium. Will continue on the current intravenous antibiotic regimen. 2. Bilateral pleural effusions. The patient has a moderate-sized left pleural effusion. Will defer to the marine water tender regarding a possible thoracentesis. 3. Leukocytosis. This is likely a combination of pneumonia plus steroids. Continue with antibiotic therapy. 4. Metastatic ovarian cancer. Aware. 5. Thrombocytopenia. We will continue to monitor this closely. 6. Acute kidney injury. Improved. 7. Disseminated intravascular coagulation. Management as per the guest service team leader. cc: Milagros Hebert MD
--- NOTE | 2017-06-14 16:49 | PROGRESS NOTE ---
DATE: 06/14/2017 PRESENT ILLNESS: The patient has bilateral pneumonia. This is the 7th day of treatment with Tygacil and the 4th day of treatment with meropenem for the patient's pneumonia. PHYSICAL EXAMINATION: Vital Signs: Temperature is 98.4 degrees, pulse 76, respirations 16, blood pressure 176/88. General: This is an ill-appearing, middle-aged female. She is in no acute distress. Lungs: Clear to auscultation. Cardiovascular: Regular heart rate. Abdomen: Soft and not tender like it was last night. Neurologic: Patient is awake but she does not respond much to verbal stimuli. When she talks it is very hard for me to understand what she is saying. LAB AND X-RAY: The patient's chest x-ray shows less dense bilateral infiltrates. CT scan of the abdomen and pelvis shows stable adenopathy in the retroperitoneal area. The patient's CBC has a white count of 46,660, hemoglobin 9.7, and platelet count 38,000. ASSESSMENT AND PLAN: We are going to keep going with her antibiotics and steroids. COMORBIDITIES: Metastatic ovarian cancer, chemotherapy and diabetes mellitus. cc: Villa Jaimes MD
[2017-06-14] MEDS: NEURONTIN PO SCH (21:09)
[2017-06-15] MEDS: MERREM 1 GM in NS 50 ML IV SCH ×3 (01:01→17:01)
[2017-06-15] MEDS: DUONEB (A & A) INH SCH ×6 (03:30→22:50)
[2017-06-15] MEDS: HUMALOG SUBQ SCH ×4 (03:48→17:02)
[2017-06-15] MEDS: SOLU-MEDROL IV SCH ×4 (03:48→21:45)
[2017-06-15] MEDS: TYGACIL 50 MG in NS 50 ML IV SCH ×2 (06:14→19:03)
[2017-06-15 06:45] LABS: PLT 37 X1000 (130-400)
[2017-06-15 06:46] LABS: BASO% 0.1 % (0.0-0.8); HEMATOCRIT 29.2 % (37.0-47.0); HEMOGLOBIN 9.7 g/dL (12.0-16.0); IMM GRAN# 0.27 X1000 (0.0-0.04); IMM GRAN% 0.5 % (0.0-0.5); LYMPH# 0.63 X1000 (1.2-3.4); LYMPH% 1.2 % (20.5-51.1); MANUAL DIFF NEEDED? YES; MCH 28.5 PG (27-31); MCHC 33.2 g/dL (33-37); MCV 85.9 FL (81-99); MONO# 1.25 X1000 (0.11-0.59); MONO% 2.3 % (1.7-9.3); NEUT% 95.9 % (42.2-75.2)
[2017-06-15 07:26] LABS: BANDS 12 % (0-1); LYMPHS 2 % (21-51); MONO 2 % (1-9)
[2017-06-15] MEDS: DILAUDID IV PRN ×3 (08:11→21:44)
[2017-06-15] MEDS: TOPROL XL PO SCH (08:20)
[2017-06-15] MEDS: TESSALON PO SCH ×3 (08:20→17:01)
--- NOTE | 2017-06-15 14:08 | PROGRESS NOTE ---
DATE: 06/15/2017 SUBJECTIVE: The patient is resting comfortably in bed. She has no complaints at this time. OBJECTIVE: Vital Signs: Temperature 98.6 degrees, blood pressure 171/74, heart rate 88, respirations 21, O2 saturations 97% on 2 L nasal cannula. General: This is a chronically ill- appearing, elderly female, lying in bed in no acute distress. Head: Normocephalic, atraumatic. Heart: S1, S2. Normal. Regular rate and rhythm. Lungs: Lungs with equal air entry bilaterally. No crackles, no rales. Abdomen: Positive bowel sounds. Soft, nontender, nondistended. Extremities: No edema. No cyanosis. No calf tenderness. Neurologic: The patient is alert and oriented x3. No focal neurologic deficits noted. LABS: White blood cell count 54.7, hemoglobin 9.7, hematocrit 29.2. ASSESSMENT AND PLAN: 1. Pneumonia secondary to Enterococcus faecium. Continue on intravenous antibiotics plus bronchodilator therapy. 2. Bilateral pleural effusions. We will continue to monitor this closely. 3. Leukocytosis. Worse today. This is likely the effect of the steroids that the patient is on. We will continue the antibiotic therapy as ordered. 4. Metastatic ovarian cancer. Aware. 5. Acute kidney injury. Improved. 6. Disseminated intravascular coagulation. Management as per the sales store checker. 7. Thrombocytopenia. Stable. cc: Milagros Hebert MD
[2017-06-15] MEDS ORDERED: NS 250 ML IV SCH (16:07)
[2017-06-15] MEDS ORDERED: NS 250 ML IV PRN (16:20)
[2017-06-15] MEDS: APRESOLINE PO SCH ×2 (16:21→21:45)
[2017-06-15] MEDS: NEURONTIN PO SCH (21:45)
[2017-06-16] MEDS: MERREM 1 GM in NS 50 ML IV SCH ×3 (01:18→16:00)
[2017-06-16] MEDS: DILAUDID IV PRN ×5 (01:18→20:09)
[2017-06-16] MEDS: HUMALOG SUBQ SCH ×5 (01:21→20:23)
[2017-06-16] MEDS: DUONEB (A & A) INH SCH ×6 (03:41→23:47)
[2017-06-16] MEDS: APRESOLINE PO SCH ×4 (04:14→20:24)
[2017-06-16] MEDS: SOLU-MEDROL IV SCH ×4 (04:14→20:08)
[2017-06-16] MEDS: TYGACIL 50 MG in NS 50 ML IV SCH ×2 (05:52→18:31)
[2017-06-16] MEDS: NEURONTIN PO SCH ×3 (06:18→20:24)
[2017-06-16 07:12] LABS: BASO% 0.1 % (0.0-0.8); EOS# 0.01 X1000 (0.0-0.7); HEMATOCRIT 29.4 % (37.0-47.0); HEMOGLOBIN 9.9 g/dL (12.0-16.0); LYMPH# 0.62 X1000 (1.2-3.4); MANUAL DIFF NEEDED? YES; MCH 29.3 PG (27-31); MCHC 33.7 g/dL (33-37); MONO# 1.43 X1000 (0.11-0.59); MONO% 2.3 % (1.7-9.3); NEUT% 95.6 % (42.2-75.2); RBC 3.37 XMIL (4.2-5.4)
[2017-06-16 07:13] LABS: PLT 37 X1000 (130-400)
[2017-06-16 07:17] LABS: BANDS 10 % (0-1); LYMPHS 2 % (21-51); MONO 4 % (1-9); NRBC 1 % (0-0)
[2017-06-16 07:22] LABS: AGAP 21; ALBUMIN 2.7 g/dL (3.5-5.0); ALKALINE PHOSPHATASE 237 U/L (32-104); BUN 66 mg/dL (8-22); CHLORIDE 105 mmol/L (98-107); COSMO 316; GOT 26 U/L (10-30); GPT 15 U/L (10-36); POTASSIUM 4.2 mmol/L (3.5-5.1); SODIUM 146 mmol/L (136-145); TCO2 20 mmol/L (25-35); TOTAL BILIRUBIN 1.96 mg/dL (0.20-1.00); TOTAL PROTEIN 6.8 g/dL (6.3-8.3)
[2017-06-16] MEDS ORDERED: LABETALOL IV ONE (08:23)
[2017-06-16] MEDS: ZOFRAN IV PRN (08:23)
[2017-06-16] MEDS ORDERED: CARDENE 20 MG/NS 20 MG/200 ML PIGGYBACK IV SCH (09:00)
--- NOTE | 2017-06-16 09:14 | Diag Imaging Result Doc PS360 ---
EXAM: HEAD W/O CONTRAST TECHNIQUE: Dose reduction protocol was used. INDICATION: AMS COMPARISON: None. FINDINGS: There is no definite acute infarct given the limited sensitivity of CT versus MRI. There is no discrete intracranial mass, mass effect, or intracranial hemorrhage. The surrounding soft tissues and bony structures are essentially unremarkable. IMPRESSION: No evidence of acute intracranial pathology. Electronically signed by Gil Preciado 06/16/2017 9:12 AM
[2017-06-16] MEDS: TESSALON PO SCH ×3 (09:27→16:00)
[2017-06-16] MEDS: D5 1/2 NS 1,000 ML IV SCH ×2 (09:28→23:03)
[2017-06-16] MEDS: TOPROL XL PO SCH (09:28)
--- NOTE | 2017-06-16 11:07 | Diag Imaging Result Doc PS360 ---
EXAM: ABDOMEN FLAT/UPRIGHT INDICATION: obstruction TECHNIQUE: 2 views COMPARISON: 08/26/2016 FINDINGS: There is retained contrast media in the colon from a recent prior CT. There is no obstructive bowel pattern. There is no evidence of large volume free abdominal gas. There is no definite organomegaly. There are effusions and basilar atelectasis and/or infiltrate at the lung bases similar to a recent CT. IMPRESSION: No evidence of acute abdominal pathology by plain radiograph. Electronically signed by Gil Preciado 06/16/2017 11:05 AM
[2017-06-16] MEDS ORDERED: BLISTEX MEDICATED BERRY LIP BALM TOP PRN (14:51)
--- NOTE | 2017-06-16 16:42 | PROGRESS NOTE ---
DATE: 06/16/2017 SUBJECTIVE: The patient was transferred to the ICU with morning because of a markedly elevated blood pressure and persistent nausea with vomiting. This morning the patient was noted to have a blood pressure of 233/124. OBJECTIVE: Vital Signs: Temperature 97.8 degrees, blood pressure 192/97, heart rate 80, respirations 23, O2 saturations 95% on 2 L nasal cannula. General: This is an elderly female lying in bed in no acute distress. Head: Normocephalic, atraumatic. Heart: S1, S2. Normal. Regular rate and rhythm. Lungs: Clear to auscultation bilaterally. No crackles. No rales. No wheezing. Abdomen: Positive bowel sounds. Soft, nontender, nondistended. Extremities: Trace pedal edema. No cyanosis. No calf tenderness. Neurologic: The patient is alert and oriented x3. LABORATORY: White blood cell count 62, hemoglobin 9.9, hematocrit 29, platelets 37,000. Sodium 146, potassium 4.2, chloride 105, CO2 20, BUN 66, creatinine 1, glucose 208. Total bilirubin 1.9. AST 26, ALT 15, alkaline phosphatase 237. IMAGING: Head CT reveals no acute intracranial pathology. Abdominal x-ray shows no acute abdominal pathology. ASSESSMENT AND PLAN: 1. She had hypertensive urgency. We will adjust the patient's oral antihypertensives. In the meantime, the patient will be started on a Cardene drip for better blood pressure control. 2. Pneumonia secondary to Enterococcus faecium. Continue on the current intravenous antibiotic therapy. 3. Bilateral pleural effusions. Stable. 4. Leukocytosis. The patient's white blood cell count continues to rise daily. We will continue to monitor. Infectious Disease and Oncology are following. 5. Anemia of chronic disease. Stable. 6. Hypernatremia. We will start the patient on D5 half-normal saline and repeat the sodium tomorrow. 7. Diabetes mellitus type 2. Continue on sliding scale insulin. 8. Disseminated intravascular coagulation. Management as per the solar installer technician. 9. Renal insufficiency. Stable. 10. Metastatic ovarian cancer. Aware. 11. Thrombocytopenia. Stable. cc: Milagros Hebert MD
[2017-06-16] MEDS ORDERED: VASOTEC IV SCH (22:30)
[2017-06-16] MEDS: VASOTEC IV SCH (23:03)
[2017-06-17] MEDS: DILAUDID IV PRN ×5 (00:22→19:50)
[2017-06-17] MEDS: MERREM 1 GM in NS 50 ML IV SCH ×3 (00:22→16:09)
[2017-06-17] MEDS: SOLU-MEDROL IV SCH ×3 (03:23→16:16)
[2017-06-17] MEDS: DUONEB (A & A) INH SCH ×6 (03:46→23:30)
[2017-06-17] MEDS: VASOTEC IV SCH ×3 (05:31→13:57)
[2017-06-17] MEDS: TYGACIL 50 MG in NS 50 ML IV SCH (05:31)
--- NOTE | 2017-06-17 05:50 | Diag Imaging Result Doc PS360 ---
EXAM: CHEST-PORTABLE HISTORY: abnormal exam TECHNIQUE: Portable chest COMPARISON: 06/14/2017 FINDINGS: No change in the left-sided PICC line. There is a moderate-sized left-sided pleural effusion. The heart is not enlarged. There is vascular distention. I believe there is a small right pleural effusion. There is bibasilar atelectasis. There may be underlying infiltrates. Calcified mediastinal nodes. IMPRESSION: No interval improvement. Electronically signed by Stan Tristan 06/17/2017 5:47 AM
[2017-06-17] MEDS: HUMALOG SUBQ SCH ×4 (06:14→21:24)
[2017-06-17 06:53] LABS: AGAP 14; ALBUMIN 2.7 g/dL (3.5-5.0); ALKALINE PHOSPHATASE 230 U/L (32-104); BUN 61 mg/dL (8-22); CALCIUM 8.8 mg/dL (8.8-10.2); CHLORIDE 109 mmol/L (98-107); COSMO 321; GOT 23 U/L (10-30); GPT 13 U/L (10-36); SODIUM 149 mmol/L (136-145); TCO2 26 mmol/L (25-35); TOTAL BILIRUBIN 1.78 mg/dL (0.20-1.00); TOTAL PROTEIN 6.6 g/dL (6.3-8.3)
[2017-06-17 07:47] LABS: BASO% 0.1 % (0.0-0.8); HEMATOCRIT 28.3 % (37.0-47.0); HEMOGLOBIN 9.3 g/dL (12.0-16.0); LYMPH# 0.46 X1000 (1.2-3.4); LYMPH% 0.8 % (20.5-51.1); MANUAL DIFF NEEDED? YES; MCH 29.5 PG (27-31); MCHC 32.9 g/dL (33-37); MCV 89.8 FL (81-99); MONO# 1.22 X1000 (0.11-0.59); MONO% 2.2 % (1.7-9.3); NEUT% 96.9 % (42.2-75.2); PLT 33 X1000 (130-400); RBC 3.15 XMIL (4.2-5.4)
[2017-06-17 08:10] LABS: LYMPHS 3 % (21-51); MONO 1 % (1-9)
[2017-06-17] MEDS: TOPROL XL PO SCH ×2 (09:06→09:15)
[2017-06-17] MEDS: TESSALON PO SCH ×4 (09:07→16:14)
--- NOTE | 2017-06-17 09:14 | PROGRESS NOTE ---
DATE: 06/17/2017 PRESENT ILLNESS: The patient has bibasilar pneumonia. The patient also has an increasing leukocytosis. I think most of the leukocytosis is due to steroid administration. MEDICATIONS: This is the 7th day of treating with meropenem and the 10th day of treating with Tygacil. PHYSICAL EXAMINATION: Vital Signs: Temperature is 96 degrees, pulse 77, respirations 16, blood pressure 145/93. General: This is a chronically ill-appearing, middle-aged female. She is in no acute distress. Lungs: Had bibasilar rales. Cardiovascular: Heart rate was regular. Abdomen: Soft and nontender. Neurologic: The patient was in almost a delirium. She stared forward. She did not follow requests to move her extremities. She did not talk. LAB AND X-RAY: A CT scan of the head showed no acute disease. Chest x-ray shows left greater than right pleural effusions and bibasilar infiltrates. Patient's CBC shows a white count of 54,950, hemoglobin 9.3, and platelet count 33,000. ASSESSMENT AND PLAN: From an infectious disease point of view, the patient has pneumonia. I plan to continue her current antibiotics. She may have an immunological disease going on. She does have a history of ovarian cancer but on biopsy, we have not been able to prove that there was metastatic disease in the lung. The plan is to continue with the antibiotics. The assessment is that she does have pneumonia. Patient's comorbidities include metastatic ovarian cancer, chemotherapy, and diabetes mellitus. cc: Villa Jaimes MD
[2017-06-17] MEDS: D5 1/2 NS 1,000 ML IV SCH (12:01)
[2017-06-17] MEDS: NORVASC PO SCH (13:14)
[2017-06-17 13:26] LABS: FLOW CYTOMETERY SOURCE WHOLE BLOOD; LEUKEMIA LYMPHOMA BY FLOW REFERRED FOR TESTING
[2017-06-17] MEDS: D5 1/4 NS 1,000 ML IV SCH (13:57)
--- NOTE | 2017-06-17 15:08 | PROGRESS NOTE ---
DATE: 06/17/2017 SUBJECTIVE: Ms. Bills is sitting up in her hospital bed in the ICU. She does seem confused and unaware that I am present. OBJECTIVE: Vital Signs: Temperature 97.2 degrees, heart rate 75, respirations 13, blood pressure 164/91, O2 saturation 97% on 2 L nasal cannula. LABS: White blood cells are 54.95, hemoglobin 9.3, hematocrit 28.3, platelet count 33,000. Fibrinogen is less than 50, sodium 149, potassium 4.0, chloride 109, CO2 26, BUN 61, creatinine 1.0, glucose 239. PHYSICAL EXAM: Cardiovascular: S1-S2 heard. No murmurs, gallops, rubs appreciated. Respiratory: Chest is essentially clear to auscultation bilaterally. She does have some coarse breath sounds. Abdomen: Appears to be soft, nondistended, nontender with positive bowel sounds. Extremities: The patient has trace bilateral extremity edema. Neurologic: Patient is alert. She is not following commands well at this time. ASSESSMENT AND PLAN: 1. Metastatic ovarian carcinoma. Aware. Patient is not well enough to receive any sort treatment at this time. 2. Disseminated intravascular coagulation. Patient's platelet count is stable at 33,000. No evidence of bleeding. Her fibrinogen is quite low today. We will plan to go ahead and transfuse 3 units of cryoprecipitate today. Check daily fibrinogen to continue to transfuse cryo as needed. 3. Leukocytosis. This has gradually been increasing and is quite elevated today at 54.95. Patient's hemoglobin is acceptable at 9.3. Likely related to her infection however will go ahead and check flow cytometry. 4. Vancomycin-resistant enterococci pneumonia. Patient continues on IV antibiotics per Dr. Jaimes. She is also receiving oxygen supplementation as well as DuoNeb. Patient is also receiving steroids. 5. Altered mental status. According to report, the patient has been showing some altered mental status through the weekend. She did have a CT of the head done on 06/16 which was negative for any acute intracranial pathology. Monitor. 6. Hypertensive urgency. Patient's blood pressure is better now that she is on a Cardene drip. Monitor. Dictated by LIBERTY Devlin for Renu Panchal MD cc: Renu Panchal MD I have examined the patient, reviewed the chart and agree with the above A/P MTDD
[2017-06-17] MEDS: NEURONTIN PO SCH (21:20)
[2017-06-18] MEDS: SOLU-MEDROL IV SCH ×3 (00:06→15:28)
[2017-06-18] MEDS: MERREM 1 GM in NS 50 ML IV SCH ×3 (00:06→16:27)
[2017-06-18] MEDS: VASOTEC IV SCH ×4 (00:06→15:28)
[2017-06-18] MEDS: DILAUDID IV PRN ×5 (01:05→14:43)
[2017-06-18] MEDS: DUONEB (A & A) INH SCH ×6 (03:52→22:37)
[2017-06-18] MEDS: TYGACIL 50 MG in NS 50 ML IV SCH ×3 (05:14→17:44)
[2017-06-18] MEDS: D5 1/4 NS 1,000 ML IV SCH (06:09)
[2017-06-18] MEDS: HUMALOG SUBQ SCH ×4 (06:10→21:25)
[2017-06-18 06:14] LABS: BASO% 0.1 % (0.0-0.8); HEMATOCRIT 26.5 % (37.0-47.0); HEMOGLOBIN 8.6 g/dL (12.0-16.0); IMM GRAN# 0.39 X1000 (0.0-0.04); IMM GRAN% 0.7 % (0.0-0.5); LYMPH# 0.35 X1000 (1.2-3.4); LYMPH% 0.6 % (20.5-51.1); MANUAL DIFF NEEDED? YES; MCH 28.8 PG (27-31); MCHC 32.5 g/dL (33-37); MCV 88.6 FL (81-99); MONO# 1.54 X1000 (0.11-0.59); MONO% 2.7 % (1.7-9.3); NEUT% 95.9 % (42.2-75.2); RBC 2.99 XMIL (4.2-5.4)
[2017-06-18 06:19] LABS: PLT 31 X1000 (130-400)
[2017-06-18 06:32] LABS: AGAP 14; ALKALINE PHOSPHATASE 234 U/L (32-104); BUN 64 mg/dL (8-22); CALCIUM 8.9 mg/dL (8.8-10.2); CHLORIDE 108 mmol/L (98-107); COSMO 319; GOT 26 U/L (10-30); GPT 18 U/L (10-36); POTASSIUM 3.8 mmol/L (3.5-5.1); SODIUM 150 mmol/L (136-145); TCO2 28 mmol/L (25-35); TOTAL BILIRUBIN 1.59 mg/dL (0.20-1.00)
[2017-06-18 07:08] LABS: MONO 1 % (1-9)
--- NOTE | 2017-06-18 07:31 | Diag Imaging Result Doc PS360 ---
EXAM: CHEST-PORTABLE HISTORY: dyspnea TECHNIQUE: Portable COMPARISON: 06/17/2017 FINDINGS: There is a moderate-sized left-sided pleural effusion with a smaller right-sided pleural effusion. No change in the left-sided PICC line. The heart remains enlarged. There is atelectasis and infiltrates throughout the right lung as well as in the left base. The overall appearance is similar to that of the prior exam. IMPRESSION: Stable chest. Electronically signed by Stan Tristan 06/18/2017 7:29 AM
[2017-06-18] MEDS: NORVASC PO SCH (09:48)
[2017-06-18] MEDS: TESSALON PO SCH ×3 (09:49→17:45)
[2017-06-18] MEDS: TOPROL XL PO SCH (09:49)
[2017-06-18] MEDS: D5W 1,000 ML IV SCH (11:28)
[2017-06-18] MEDS ORDERED: HALDOL IV ONE (15:38)
[2017-06-18] MEDS: ATIVAN IV PRN (16:27)
--- NOTE | 2017-06-18 17:28 | PROGRESS NOTE ---
DATE: 06/18/2017 PRESENT ILLNESS: I think the patient has a bibasilar pneumonia. She has an increasing leukocytosis. The patient is on high dose of steroids, I think that contributes a lot toward her leukocytosis. MEDICATIONS: This is day 8 of treating with meropenem and day 11 treating with Tygacil. Patient has been on steroids now for 9 days also. PHYSICAL EXAMINATION: Vital Signs: Temperature is 94.9, pulse 109, respirations 8, blood pressure 141/81. General: The patient is sedated now. She had been thrashing around in bed. Now she is lying there and looks to be comfortable. She certainly is in no acute distress. Lungs: Clear to auscultation. Cardiovascular: Heart rate was regular. Abdomen: Was soft. It was not tender. However, the patient had received sedation. Neurologic: She did not respond to verbal stimuli. She had a slow rate of respirations. Extremities: The patient's IV site was not erythematous, swollen or draining pus. LAB AND X-RAY: Chest x-ray shows bilateral effusions and bilateral infiltrates versus atelectasis. CBC shows a white count of 57,920, hemoglobin 8.6 and platelet count 31,000. Creatinine is 1. GFR is greater than 60. Bilirubin is 1.59. Blood cultures have been drawn and the results are pending. ASSESSMENT AND PLAN: The patient has a marked leukocytosis. I think that she does have a basilar pneumonia. Also think that the steroids are contributing to her leukocytosis as well. My plan for now is to continue with the antibiotics. Dr. Suresh has ordered the steroids and will decide if they need to be stopped or in any way changed. COMORBIDITIES: Include metastatic ovarian cancer, chemotherapy and diabetes mellitus. cc: Villa Jaimes MD
[2017-06-18] MEDS: NEURONTIN PO SCH (21:01)
[2017-06-18] MEDS: D50W SYRINGE IV SCH (21:35)
[2017-06-19] MEDS: DILAUDID IV PRN ×5 (00:24→23:37)
[2017-06-19] MEDS: VASOTEC IV SCH ×3 (00:25→15:11)
[2017-06-19] MEDS: SOLU-MEDROL IV SCH ×3 (00:25→22:00)
[2017-06-19] MEDS: ATIVAN IV PRN ×3 (01:49→15:35)
[2017-06-19] MEDS: MERREM 1 GM in NS 50 ML IV SCH ×2 (01:56→08:57)
[2017-06-19] MEDS: D5W 1,000 ML IV SCH (01:57)
[2017-06-19] MEDS: DUONEB (A & A) INH SCH ×6 (03:11→23:10)
[2017-06-19] MEDS: TYGACIL 50 MG in NS 50 ML IV SCH (05:54)
[2017-06-19 06:54] LABS: BASO% 0.1 % (0.0-0.8); EOS# 0.02 X1000 (0.0-0.7); HEMATOCRIT 24.5 % (37.0-47.0); HEMOGLOBIN 7.6 g/dL (12.0-16.0); IMM GRAN# 0.31 X1000 (0.0-0.04); IMM GRAN% 0.6 % (0.0-0.5); LYMPH% 0.6 % (20.5-51.1); MANUAL DIFF NEEDED? YES; MCV 90.4 FL (81-99); MONO# 1.62 X1000 (0.11-0.59); MONO% 3.2 % (1.7-9.3); NEUT% 95.5 % (42.2-75.2); PLT 28 X1000 (130-400); RBC 2.71 XMIL (4.2-5.4)
[2017-06-19 07:10] LABS: ALBUMIN 2.4 g/dL (3.5-5.0); CALCIUM 7.9 mg/dL (8.8-10.2); POTASSIUM 4.4 mmol/L (3.5-5.1); TOTAL BILIRUBIN 0.97 mg/dL (0.20-1.00); TOTAL PROTEIN 5.7 g/dL (6.3-8.3)
[2017-06-19 07:13] LABS: BANDS 6 % (0-1); LYMPHS 2 % (21-51)
[2017-06-19 07:15] LABS: HYPOCHROM 2+
[2017-06-19 07:17] LABS: LARGE PLATELETS 1+
[2017-06-19] MEDS ORDERED: LEVAQUIN 500 MG in NS 100 ML IV SCH (08:30)
--- NOTE | 2017-06-19 08:37 | PROGRESS NOTE ---
DATE: 06/19/2017 PRESENT ILLNESS: The patient has a bibasilar pneumonia. She also has a marked leukocytosis. Today, it seems that the white count is coming down. The patient also is on steroids, which could be contributing to the leukocytosis. MEDICATIONS: This is 9 of treatment with meropenem, and day 12 of treatment with Tygacil. The patient is been on steroids for 10 days also. PHYSICAL EXAMINATION: Vital Signs: Temperature is 96.2 degrees, pulse 80, respirations 10, blood pressure 98/54. General: This is an ill-appearing, middle-aged female. She has slow respirations. She is semi-comatose. ENT: No drainage noted from the nose or ears. Neck: No meningismus. Lungs: Clear to auscultation. Cardiovascular: Regular heart rate. Abdomen: Soft and nontender. Neurologic: The patient briefly responds to verbal stimuli by opening her eyes, but she soon closes them. She did not follow request to move her extremities. There was no tremor. LABORATORY DATA: The patient's CBC today shows that the white count is down to 50,220, hemoglobin 7.6, platelet count 28,000. Creatinine is 1.2. The GFR is 55. ASSESSMENT AND PLAN: The patient has pneumonia. She is on steroids. She has a marked leukocytosis, which has decreased a little bit today. My plan is to continue the current antibiotics, and if there is no contraindication, add Levaquin. The patient's comorbidities include metastatic ovarian cancer, chemotherapy, and diabetes mellitus. cc: Villa Jaimes MD
[2017-06-19] MEDS: HUMALOG SUBQ SCH ×4 (08:39→22:01)
[2017-06-19] MEDS: NORVASC PO SCH (09:54)
[2017-06-19] MEDS: TOPROL XL PO SCH (09:55)
[2017-06-19] MEDS: TESSALON PO SCH (09:55)
[2017-06-19] MEDS ORDERED: APRESOLINE IV PRN (10:56)
--- NOTE | 2017-06-19 11:12 | PROGRESS NOTE ---
DATE: 06/19/2017 SUBJECTIVE: The patient has no focal complaints but she is very minimally responsive. OBJECTIVE: Blood pressure 109/64, heart rate of 103, respiratory of 14, temperature 96.6 degrees, 94% on 3 L.Cardiovascular: Tachy. Pulmonary: Occasional rhonchi. GI: Soft, nontender, nondistended. Bowel sounds are positive. LABORATORY DATA: White count 50, hemoglobin and hematocrit 7 and 24, platelets of 28,000. Platelets normal, sodium 146, creatinine 1.2, BUN 75, and glucose 279. PROBLEM LIST: 1. Vancomycin resistant enterococcus pneumonia. She is on Tygacil and cefepime. 2. Encephalopathy which is progressive. Head CT was negative. She is hypernatremic but she is still fairly unresponsive. I am going to try to discontinue any sedating medications. Cut down on pain medication and follow. Will get an MRI because she already has metastatic cancer just to rule out metastatic disease or stroke. 3. Bilateral pleural effusion. Appears to be stable. 4. Type 2 diabetes. She is stable on kicked current lip insulin regimen. 5. DIC had resolved. We do not have a fibrinogen today. We will obtain 1. 6. Anemia has progressed without evidence of bleeding. I am going to go ahead and give her 1 unit of blood and follow. 7. Metastatic ovarian cancer. Aware. DISPOSITION: Overall prognosis is poor. She has been here 27 days and has steadily deteriorated. We will discuss with family about further plans and continue to follow. cc: Mark Knapp MD
--- NOTE | 2017-06-19 13:21 | Diag Imaging Result Doc PS360 ---
EXAM: MRI BRAIN W W/O CONTRAST HISTORY: ams TECHNIQUE: Axial, sagittal, and coronal images obtained in multiple sequences. These are followed the post contrasted axial and coronal images. COMPARISON: CT from 06/16/2017 FINDINGS: No recent infarct. No microvascular ischemic changes. No mass or midline shift. No enhancing lesion on the post contrasted images. No hydrocephalus. No epidural or subdural fluid collection. No sinus opacification. No air-fluid levels. IMPRESSION: Negative MRI of the brain. No recent infarct. Electronically signed by Stan Tristan 06/19/2017 1:19 PM
[2017-06-19] MEDS: MYCAMINE 100 MG in NS 100 ML IV SCH (18:19)
[2017-06-19] MEDS ORDERED: D5W 1,000 ML IV SCH (22:45)
[2017-06-20] MEDS: ATIVAN IV PRN (00:26)
[2017-06-20] MEDS: VASOTEC IV SCH ×2 (02:15→07:31)
[2017-06-20] MEDS: DILAUDID IV PRN ×5 (02:31→17:45)
[2017-06-20] MEDS: DUONEB (A & A) INH SCH ×7 (02:42→23:57)
--- NOTE | 2017-06-20 03:44 | PROGRESS NOTE ---
DATE: 06/19/2017 ADDENDUM: [facility] just called and said the patient's blood culture is positive for yeast. I have ordered the following: Micafungin 100 mg IV now and every 24 hours. Discontinue meropenem and Tygacil and remove the patient's PICC. cc: Villa Jaimes MD MTDD
[2017-06-20 07:27] LABS: CALCIUM 8.5 mg/dL (8.8-10.2); MAGNESIUM 2.1 mg/dL (1.5-2.7); POTASSIUM 4.6 mmol/L (3.5-5.1)
[2017-06-20] MEDS: HUMALOG SUBQ SCH ×4 (07:31→21:09)
[2017-06-20 07:32] LABS: MCH 28.8 PG (27-31); MCHC 33.3 g/dL (33-37); MCV 86.5 FL (81-99); PLT 23 X1000 (130-400); RBC 3.47 XMIL (4.2-5.4)
[2017-06-20] MEDS: SOLU-MEDROL IV SCH (08:38)
[2017-06-20] MEDS: CLINIMIX E 4.25%-5% SOLUTION 1,000 ML IV SCH (11:01)
--- NOTE | 2017-06-20 13:36 | PROGRESS NOTE ---
DATE: 06/20/2017 SUBJECTIVE: Patient is still very altered. OBJECTIVE: Vital Signs: Blood pressure 121/78, heart rate 124, respiratory rate 22, temp 97.8 degrees, satting 91% on 4 L. Cardiovascular: Regular rate and rhythm. Pulmonary: Bilateral breath sounds. Clear to auscultation. GI: Soft, nontender, nondistended. Bowel sounds are positive. Extremity exam: No clubbing or cyanosis. Lymphatic exam: No peripheral edema. Neurological exam: Nonfocal. LABORATORY DATA: White count is down to 47,000, hemoglobin and hematocrit 10 and 30, platelets 23. Fibrinogen is 77. Sodium 146, BUN and creatinine 86 and 1.2, glucose 278. Blood cultures are positive for yeast from the first which were positive for Saira albicans. PROBLEM LIST: 1. Fungemia likely related to PICC line. She is now on Micafungin. PICC line has been removed. I have ordered a limited echocardiogram to rule out endocarditis. We will need to follow otherwise. 2. Vancomycin-resistant enterococci pneumonia. She is on Tygacil and cefepime. 3. Bilateral pleural effusions. We will continue to monitor closely. 4. Type 2 diabetes. She is on sliding scale insulin. 5. Disseminated intravascular coagulation has not resolved. I am probably going to go ahead and give her another several units of cryotherapy. Hematology/Oncology is following. 6. Anemia. That appears to be stable. 7. Metastatic ovarian cancer. Aware. Poor prognosis. DISPOSITION: I have discussed the condition with her . He understands her condition at this point. I think her current delirium process is associated with her infection. cc: Mark Knapp MD
[2017-06-20] MEDS: D50W SYRINGE IV SCH (16:19)
[2017-06-20] MEDS: MYCAMINE 100 MG in NS 100 ML IV SCH (16:19)
[2017-06-20] MEDS ORDERED: DIFLUCAN 400 MG/NS 400 MG/200 ML IVPB IV SCH (20:00)
[2017-06-21 00:30] LABS: ALLEN TEST YES; BE 0.1 mmoll (-3.0-3.0); BLOOD TYPE ARTERIAL; DRAW SITE R RADIAL; METHB 1.5 % (0.0-1.5); O2(CT) 13.7 mL/dL (15.0-23.0); PO2(98.6) 92 mmHg (60-100); SAMPLE BLOOD; THB 10.2 g/dL (11.5-17.4); pH(98.6) 7.21 (7.35-7.45)
[2017-06-21 00:32] LABS: PCO2(98.6) 73 mmHg (35-45)
[2017-06-21 00:33] LABS: MODALITY NRB
[2017-06-21] MEDS: DILAUDID IV PRN ×5 (00:49→20:32)
[2017-06-21] MEDS: CLINIMIX E 4.25%-5% SOLUTION 1,000 ML IV SCH (03:18)
[2017-06-21] MEDS: ATIVAN IV PRN (03:19)
[2017-06-21] MEDS: DUONEB (A & A) INH SCH ×3 (03:58→11:31)
[2017-06-21 04:56] LABS: ALLEN TEST YES; BE -0.7 mmoll (-3.0-3.0); BLOOD TYPE ARTERIAL; DRAW SITE R RADIAL; METHB 1.2 % (0.0-1.5); O2(CT) 13.5 mL/dL (15.0-23.0); PO2(98.6) 142 mmHg (60-100); SAMPLE BLOOD; SAO2 100.1 % (95.0-100.0); THB 9.7 g/dL (11.5-17.4); pH(98.6) 7.29 (7.35-7.45)
[2017-06-21 04:58] LABS: MODALITY BI PAP; PCO2(98.6) 55 mmHg (35-45)
[2017-06-21 05:25] LABS: HEMATOCRIT 27.8 % (37.0-47.0); HEMOGLOBIN 8.8 g/dL (12.0-16.0); MCHC 31.7 g/dL (33-37); MCV 94.9 FL (81-99); RBC 2.93 XMIL (4.2-5.4)
[2017-06-21 05:28] LABS: PLT 14 X1000 (130-400)
[2017-06-21 05:45] LABS: CALCIUM 8.9 mg/dL (8.8-10.2)
[2017-06-21] MEDS: HUMALOG SUBQ SCH (07:08)
[2017-06-21] MEDS ORDERED: SOLU-MEDROL IV SCH (09:00)
--- NOTE | 2017-06-21 12:24 | PROGRESS NOTE ---
DATE: 06/21/2017 SUBJECTIVE: Patient has no focal complaints. OBJECTIVE: Vital Signs: Blood pressure 139/80, heart rate of 125, respiratory 21, temp 97.4 degrees. Cardiovascular: Tachycardic. Pulmonary: Diffuse rhonchi. GI: Soft, nontender, nondistended. Bowel sounds are positive. LABORATORY DATA: [place] [address]. Hemoglobin and hematocrit of 8 and 27. Platelets are down to 14,000. is 102, pH 7.29, pCO2 55, PaO2 142, creatinine is 1.5 with a BUN of 98. Patient has further decompensated. Patient had to be put on BiPAP overnight. Discussion was had with the patient's and he understood and made the patient a DNR 1. PROBLEM LIST: 1. Acute respiratory failure, likely multifactorial. 2. Volume overload progression in her pleural effusion. 3. Acute respiratory distress syndrome associated with her fungemia. Had discussion with the daughter and other family members about her poor condition. They had already discussed about comfort care measures. 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 She is in fulminant respiratory failure and I think probably BiPAP dependent. 4. Vancomycin resistant enterococci pneumonia. She has been on antibiotics but wants to transition off. 5. Fungemia candidemia. She is on micafungin and appears to be stable. 6. Metastatic ovarian cancer. She already had a poor prognosis with this in this clinical setting. Her short-term prognosis is dismal. I have discussed with the family. We will pursue comfort care measures. I think is imminent within the next 24-48 hours. cc: Mark Knapp MD
--- NOTE | 2017-06-21 14:12 | PROGRESS NOTE ---
DATE: 06/21/2017 ADVANCE CARE NOTE: 1. Patient is deteriorating rapidly with respiratory failure. She has got Candidemia associated with lying. Most likely, she has metastatic ovarian cancer with recurrent pleural effusion with likely a primary lung malignancy which has not been specified. 2. Patient is actively decompensating. has decided on a DNR status, and we will pursue comfort care measures. 30 minute discussion. cc: Mark Knapp MD
--- NOTE | 2017-06-21 14:34 | PROGRESS NOTE ---
DATE: 06/21/2017 SUBJECTIVE: Ms. Bills is in the ICU with a BiPAP on. She is nonresponsive. OBJECTIVE: Vital Signs: Temperature 97.4 degrees, heart rate 124, respirations 19, blood pressure 139/80, O2 saturation is 98% on BiPAP at 60%. LABS: White blood cells of 44.94, hemoglobin 8.8, hematocrit 27.8, platelets are 14. Fibrinogen is 102.7. ASSESSMENT: 1. Metastatic ovarian carcinoma. Aware. 2. Vancomycin-resistant enterococcus pneumonia. Previously being treated. 3. Candidemia. Recently discovered. 4. Acute respiratory distress syndrome associated with her candidemia. It appears now that the primary team has discussed with the daughter and other family members the patient's overall condition. It has been decided the patient will now proceed with comfort measures only. We do feel this is appropriate. It appears that the patient has also been changed to DNR level 1. Due to her being comfort measures only now, we will not proceed with any further blood products at this time. We will be available if any further assistance is needed. Dictated by LIBERTY Devlin for Renu Panchal MD cc: Renu Panchal MD I have seen and examined the patient. She continues to decline clinically. I agree with comfort care measures. We will be available to provide additional support as necessary. Renu BARONE
--- NOTE | 2017-06-21 15:22 | ECHO REPORT ---
ORDER DATE: 06/20/2017 ECHOCARDIOGRAM: SUMMARY: 1. Limited 2 dimensional echocardiography study obtained. Images are technically difficult due to limited acoustic window quality. 2. Aortic, mitral and tricuspid valves are without gross structural abnormality. Pulmonic valve is not seen. Doppler not performed. Aortic root normal in size. 3. Normal left ventricular chamber size with mild to moderate concentric left hypertrophy suggested on 2-dimensional images. Estimated left ventricular ejection fraction appears to be at least 65%. No obvious wall motion abnormalities are evident. Left atrium, right atrium, and right ventricle grossly normal size with grossly preserved right ventricular systolic performance. 4. No pericardial effusion. 5. Large left pleural effusion noted. cc: MD Mark Vera MD
[2017-06-21] MEDS ORDERED: ATIVAN IV PRN (15:55)
[2017-06-21] MEDS ORDERED: TRANSDERM-SCOP TD SCH (16:39)
[2017-06-21 16:54] VITALS: BP 135/81
--- NOTE | 2017-07-18 01:50 | DISCHARGE SUMMARY ---
ADMISSION DATE: 05/23/2017 DISCHARGE DATE: 06/21/2017 DISCHARGE DIAGNOSES: 1. Acute respiratory failure. 2. Volume overload. 3. Acute respiratory distress syndrome. 4. Candidemia associated with a PICC line. 5. VRE enterococcus pneumonia. 6. Metastatic ovarian cancer, with recurrent pleural effusion. 7. Likely, could be invasive disease. CONSULTATIONS: 1. Dr. Renu Panchal, Oncology. 2. Dr. Gill, Pulmonary. HISTORY AND HOSPITAL COURSE: Briefly, this is a 61-year-old female, who presented with initially cough. Was felt to have a right lower lobe pneumonia with effusion. She was placed on antibiotics. She had mild respiratory deficiency. She was placed on Levaquin and micafungin. The patient clinically improved somewhat, had bilateral pleural effusions, sepsis. Patient had a parapneumonic effusion. Sepsis had resolved by the . Patient underwent a procedure on the , which included bronchoscopy, which showed ovarian cancer with pulmonary nodules, likely metastatic in the right upper lobe, with 20-30 cm blocking tumor. However, I believe the pathology was unremarkable. Patient had a slow and inna course. By the , felt that she likely had another lung mass versus a metastatic lesion. She had a PICC placed for IV access. On the , she was evaluated possibly to be on Tygacil. She may have also had an early level of disseminated intravascular coagulation. MRI unfortunately was revealing. Patient slowly clinically improved. Echo was done on the . On the , she clinically deteriorated. Had a long discussion with the family, and they decided to make her comfort care. She developed ARDS in the setting of a fungal candidemic infection, associated with the PICC line. Patient was transitioned to end of life care, was taken off BiPAP. She rapidly declined. She was pronounced at 2125. DISCHARGE CONDITION: Stable. cc: MD Renu Freed MD
== END 2017-06-21 21:25 | disposition expired ==
LOC: P.ED 10:49 → P.MEDSURG 14:32 → SUPCPDRO 14:32 → SUATTDRO 14:32 → P.MEDSURG 16:00 → 4N 05-25 10:32 → 3N 06-11 10:23 → ICU 06-16 08:39 → 3N 06-21 16:38
PROVIDERS: ATTEND Internal Medicine